=== PATIENT | female | born 1940 | race Caucasian/White ===

== ENCOUNTER 2017-01-21 11:21 | Emergency (ER) | payer MEDICARE, BC ==
[2017-01-21] MEDS ORDERED: Ondansetron 4 MG/2 ML SDV IVPUSH ONE (11:30)
[2017-01-21] MEDS ORDERED: Sodium Chloride 0.9% 2.5 ML Syringe FLUSH PRN (11:31)
[2017-01-21] MEDS ORDERED: diphenhydrAMINE 50 MG/ML SDV IVPUSH ONE (11:31)
[2017-01-21] MEDS ORDERED: LORazepam 2 MG/ML MDV IVPUSH ONE (11:31)
[2017-01-21] MEDS ORDERED: Sodium Chloride 0.9% 10 ML Syringe FLUSH PRN (11:31)
--- NOTE | 2017-01-21 11:32 | EDM.PDOC ---
ED HPI GENERAL MEDICAL PROBLEM - General Chief Complaint: Allergic Reaction Stated Complaint: CHEST PAIN Time Seen by Provider: 01/21/17 11:24 - History of Present Illness INITIAL COMMENTS - FREE TEXT/NARRATIVE: HISTORY AND PHYSICAL: History of present illness: The patient is a 76-year-old female who presents with complaints of feeling shaky and weak and somewhat short of breath after taking Xanax and a new medication, gabapentin, at 1 AM[address] She says that Dr. Christian Almazan prescribed this to her and she has never taking gabapentin before. She says that she has had reactions to medications in the past and usually she gets a rash and she is not itchy nor has she seen a rash. She has no facial swelling or lip swelling and no difficulty swallowing. She is having no chest pain just feeling shaky and somewhat short of breath. Review of systems: As per history of present illness and below otherwise all systems reviewed and negative. Past medical history: As per history of present illness and as reviewed below otherwise noncontributory. Surgical history: As per history of present illness and as reviewed below otherwise noncontributory. Social history: No reported history of drug or alcohol abuse. Family history: As per history of present illness and as reviewed below otherwise noncontributory. Physical exam: Gen.: Well-developed well-nourished female who is very anxious in the room is nontoxic and speaking clearly and easily in the ED. HEENT: Atraumatic, normocephalic, pupils reactive, negative for conjunctival pallor or scleral icterus, mucous membranes moist, throat clear, neck supple, nontender, trachea midline. There Is no facial swelling or oropharyngeal swelling tongue is normal and no facial rashes Lungs: Clear to auscultation, breath sounds equal bilaterally, chest nontender. No work or breathing no sensory muscle use no wheezing no stridor Heart: S1S2, regular rate and rhythm no overt murmurs Abdomen: Soft, nondistended, nontender. NABS Skin: Normal turgor no evidence of any rashes or lesions no urticaria no erythema or abnormalities are seen Genitourinary: Deferred. Rectal: Deferred. Extremities: Atraumatic, negative for cords or calf pain. Neurovascular unremarkable. Neuro: Awake, alert, oriented. Cranial nerves II through XII unremarkable. Cerebellum unremarkable. Motor and sensory unremarkable throughout. Exam nonfocal. Diagnostics: EKG Therapeutics: IV, Benadryl Ativan Patient does feel better but still feels a little shaky. I put a call out to discuss the case with Dr. Cruz as the patient says his nurse contacted her and told her to not take the gabapentin 300 mg but to take 100 mg. She still feels uncomfortable with this so I will discharge the patient home and continued to talk to Dr. Cruz about this. I told her that I will ask Dr. Cruz's nurse to contact her with the plan for home. Impression: Drug reaction/anxiety reaction Definitive disposition and diagnosis as appropriate pending reevaluation and review of above. - Related Data Allergies Allergy/AdvReac Type Severity Reaction Status Date / Time diclofenac sodium Allergy Intermediate Nausea and Verified 10/05/14 11:01 [From Voltaren] Vomiting adhesive Allergy Rash Verified 10/05/14 11:01 aspirin Allergy Hives Verified 10/05/14 11:01 calcium Allergy Nausea and Verified 10/05/14 11:01 Vomiting codeine Allergy Headache Verified 10/05/14 11:01 erythromycin base Allergy Hives Verified 10/05/14 11:01 [Erythromycin Base] latex Allergy Hives Verified 10/05/14 11:01 meloxicam Allergy Nausea and Verified 10/05/14 11:01 Vomiting naproxen [From Naprosyn] Allergy Nausea and Verified 10/05/14 11:01 Vomiting propoxyphene HCl Allergy Nausea and Verified 10/05/14 11:01 [From Darvon] Vomiting shellfish derived Allergy Nausea and Verified 10/05/14 11:01 Vomiting tamsulosin Allergy Cannot Verified 10/05/14 11:01 Remember tramadol HCl [From Ultram] Allergy Nausea and Verified 10/05/14 11:01 Vomiting Home Meds: Home Meds Esomeprazole [NexIUM] 40 mg PO DAILY 08/31/13 [History] Levothyroxine Sodium [Synthroid] 0.25 mcg PO DAILY 08/31/13 [History] Cholecalciferol (Vitamin D3) [Vitamin D3] 2,000 units PO DAILY 12/17/13 [History ] Multivitamin [Multi Vitamin Daily] 1 tab PO DAILY 12/17/13 [History] Otc Arthritis Medication 1 tab PO ASDIRECTED PRN 07/07/14 [History] predniSONE [Prednisone] 20 mg PO DAILY PRN 10/05/14 [History] Social & Family History - Tobacco Use Smoking Status *Q: Never Smoker Used Tobacco, but Quit: Yes Second Hand Smoke Exposure: No - Alcohol Use Days Per Week of Alcohol Use: 0 Number of Drinks Per Day: 0 Total Drinks Per Week: 0 - Recreational Drug Use Recreational Drug Use: No Drug Use in Last 12 Months: No ED ROS ALLERGIC REACTION - Review of Systems Review Of Systems: ROS reveals no pertinent complaints other than HPI. ED EXAM GENERAL NO PERIP PULSE - Physical Exam Exam: See Below (See dictation) Course - Vital Signs Last Recorded V/S: Last Vital Signs Temp 35.9 C 01/21/17 11:27 Pulse 73 01/21/17 11:27 Resp 20 01/21/17 11:27 BP 148/69 H 01/21/17 11:27 Pulse Ox 99 01/21/17 11:27 - Orders/Labs/Meds Orders: Active Orders 24 hr Category Date Time Status EKG Documentation Completion [RC] STAT Care 01/21/17 11:31 Active Sodium Chloride 0.9% [Saline Flush] Med 01/21/17 11:31 Active 10 ml FLUSH ASDIRECTED PRN Sodium Chloride 0.9% [Saline Flush] Med 01/21/17 11:31 Active 2.5 ml FLUSH ASDIRECTED PRN Saline Lock Insert [OM.PC] Stat Oth 01/21/17 11:30 Ordered Medication Orders Sodium Chloride (Saline Flush) 10 ml FLUSH ASDIRECTED PRN PRN Reason: Keep Vein Open Sodium Chloride (Saline Flush) 2.5 ml FLUSH ASDIRECTED PRN PRN Reason: Keep Vein Open Meds: Medications Generic Name Dose Route Start Last Admin Trade Name Freq PRN Reason Stop Dose Admin Sodium Chloride 10 ml 01/21/17 11:31 Saline Flush FLUSH ASDIRECTED PRN Keep Vein Open Sodium Chloride 2.5 ml 01/21/17 11:31 Saline Flush FLUSH ASDIRECTED PRN Keep Vein Open Discontinued Medications Generic Name Dose Route Start Last Admin Trade Name Freq PRN Reason Stop Dose Admin Diphenhydramine HCl 25 mg 01/21/17 11:31 Benadryl IVPUSH 01/21/17 11:32 ONETIME ONE Lorazepam 1 mg 01/21/17 11:31 Ativan IVPUSH 01/21/17 11:32 ONETIME ONE Ondansetron HCl 4 mg 01/21/17 11:30 Zodeanna IVPUSH 01/21/17 11:31 ONETIME ONE Departure - Departure Time of Disposition: 12:31 Disposition: Home, Self-Care 01 Condition: Good Clinical Impression: Drug reaction Qualifiers: Encounter type: initial encounter Qualified Code(s): T88.7XXA - Unspecified adverse effect of drug or medicament, initial encounter - Discharge Information Referrals: PCP,None [Primary Care Provider] - Additional Instructions: The following information is given to patients seen in the emergency department who are being discharged to home. This information is to outline your options for follow-up care. We provide all patients seen in our emergency department with a follow-up referral. The need for follow-up, as well as the timing and circumstances, are variable depending upon the specifics of your emergency department visit. If you don't have a primary care physician on staff, we will provide you with a referral. We always advise you to contact your personal physician following an emergency department visit to inform them of the circumstance of the visit and for follow-up with them and/or the need for any referrals to a consulting specialist. The emergency department will also refer you to a specialist when appropriate. This referral assures that you have the opportunity for followup care with a specialist. All of these measure are taken in an effort to provide you with optimal care, which includes your followup. Under all circumstances we always encourage you to contact your private physician who remains a resource for coordinating your care. When calling for followup care, please make the office aware that this follow-up is from your recent emergency room visit. If for any reason you are refused follow-up, please contact the [facility] emergency department at and ask to speak to the emergency department charge nurse. [address] [place] [address] Cruz for follow-up and further medication direction. Rest and return to ER as needed and as discussed - My Orders Last 24 Hours: My Active Orders 01/21/17 11:30 Saline Lock Insert [OM.PC] Stat 01/21/17 11:31 EKG Documentation Completion [RC] STAT Sodium Chloride 0.9% [Saline Flush] 10 ml FLUSH ASDIRECTED PRN Sodium Chloride 0.9% [Saline Flush] 2.5 ml FLUSH ASDIRECTED PRN - Assessment/Plan Last 24 Hours: My Active Orders 01/21/17 11:30 Saline Lock Insert [OM.PC] Stat 01/21/17 11:31 EKG Documentation Completion [RC] STAT Sodium Chloride 0.9% [Saline Flush] 10 ml FLUSH ASDIRECTED PRN Sodium Chloride 0.9% [Saline Flush] 2.5 ml FLUSH ASDIRECTED PRN
[2017-01-21] MEDS ORDERED: Ondansetron 4 MG Tab.DIS PO ONE (12:40)
[2017-01-21] MEDS ORDERED: diphenhydrAMINE 50 MG Cap PO ONE (12:41)
[2017-01-21] MEDS ORDERED: Ondansetron 4 MG Tab.DIS ONE (12:48)
[2017-01-21 12:52] VITALS: BP 136/63
== END 2017-01-21 12:55 | disposition home or self-care (01) ==
LOC: MW.ED 11:21
DX: R53.1 Weakness (principal); R06.02 Shortness of breath; R13.10 Dysphagia, unspecified; T42.4X5A Adverse effect of benzodiazepines, initial encounter; T42.6X5A Adverse effect of other antiepileptic and sedative-hypnotic drugs, initial encounter; Z87.891 Personal history of nicotine dependence; Z79.899 Other long term (current) drug therapy; Z88.5 Allergy status to narcotic agent; Z88.0 Allergy status to penicillin; Z88.1 Allergy status to other antibiotic agents; Z88.8 Allergy status to other drugs, medicaments and biological substances; Z91.040 Latex allergy status; Z88.6 Allergy status to analgesic agent; Z91.013 Allergy to seafood
CPT/HCPCS: 93005; 99285; A9270; 99283

== ENCOUNTER 2018-02-08 02:22 | Emergency (ER) | payer MEDICARE, BC ==
[2018-02-08] MEDS ORDERED: Oxymetazoline 0.05% Nasal Spray 15 ML Bottle NAS ONE ×2 (02:30)
--- NOTE | 2018-02-08 03:11 | EDM.PDOC ---
ED HPI GENERAL MEDICAL PROBLEM - General Chief Complaint: ENT Problem Stated Complaint: NOSE BLEEDING Time Seen by Provider: 02/08/18 02:30 Source of Information: Reports: Patient History Limitations: Reports: No Limitations - History of Present Illness INITIAL COMMENTS - FREE TEXT/NARRATIVE: HISTORY AND PHYSICAL: History of present illness: 77-year-old female presenting emergency department with chief complaint of acute nosebleed starting tonight. Patient states that around 7:30 PM this evening she began to have a nosebleed. States that there was a significant amount of blood coming out of both nostrils. This lasted for several minutes. Eventually the bleeding stopped. She denies any associated lightheadedness. Then later on in the evening the bleeding started again. States that she has been unable to completely get it to stop bleeding. She has been seeing ear nose and throat for a chronic sore throat and has been using Flonase. Denies any history of nosebleeds. Denies any history of hypertension. Initial arrival patient's blood pressure was 180s systolic. Nose clamp was placed. After 10-15 minutes bleeding had stopped. On visually inspection there is a small area in the right near that appears to be source of bleeding. Using silver nitrate I was able to cauterize this area. Patient was observed with no significant bleeding. Review of systems: As per history of present illness and below otherwise all systems reviewed and negative. Past medical history: As per history of present illness and as reviewed below otherwise noncontributory. Surgical history: As per history of present illness and as reviewed below otherwise noncontributory. Social history: No reported history of drug or alcohol abuse. Family history: As per history of present illness and as reviewed below otherwise noncontributory. Physical exam: HEENT: Atraumatic, normocephalic, pupils reactive, negative for conjunctival pallor or scleral icterus, mucous membranes moist, throat clear, neck supple, nontender, trachea midline. Lungs: Clear to auscultation, breath sounds equal bilaterally, chest nontender. Heart: S1S2, regular, negative for clicks, rubs, or JVD. Abdomen: Soft, nondistended, nontender. Negative for masses or hepatosplenomegaly. Negative for costovertebral tenderness. Pelvis: Stable nontender. Genitourinary: Deferred. Rectal: Deferred. Extremities: Atraumatic, negative for cords or calf pain. Neurovascular unremarkable. Neuro: Awake, alert, oriented. Cranial nerves II through XII unremarkable. Cerebellum unremarkable. Motor and sensory unremarkable throughout. Exam nonfocal. Diagnostics: Rapid strep Therapeutics: Afrin Silver nitrate for cautery Impression: Epistasis Plan: Did discharge patient with Afrin as well as nose clamp. Instructed her to refrain from using Flonase for at least 2-3 days to prevent rebleeding. We did also do a rapid strep which was negative. Patient was discharged in good condition with instructions to follow-up with primary care provider Dr. Cruz by calling his office on Friday. She should return to emergency department if any new or worsening symptoms. Definitive disposition and diagnosis as appropriate pending reevaluation and review of above. - Related Data Allergies Allergy/AdvReac Type Severity Reaction Status Date / Time diclofenac sodium Allergy Intermediate Nausea and Verified 02/08/18 02:33 [From Voltaren] Vomiting adhesive Allergy Rash Verified 02/08/18 02:33 aspirin Allergy Hives Verified 02/08/18 02:33 calcium Allergy Nausea and Verified 02/08/18 02:33 Vomiting codeine Allergy Headache Verified 02/08/18 02:33 erythromycin base Allergy Hives Verified 02/08/18 02:33 [Erythromycin Base] latex Allergy Hives Verified 02/08/18 02:33 meloxicam Allergy Nausea and Verified 02/08/18 02:33 Vomiting naproxen [From Naprosyn] Allergy Nausea and Verified 02/08/18 02:33 Vomiting propoxyphene HCl Allergy Nausea and Verified 02/08/18 02:33 [From Darvon] Vomiting shellfish derived Allergy Nausea and Verified 02/08/18 02:33 Vomiting tamsulosin Allergy Cannot Verified 02/08/18 02:33 Remember tramadol HCl [From Ultram] Allergy Nausea and Verified 02/08/18 02:33 Vomiting Home Meds: Home Meds Esomeprazole [NexIUM] 40 mcg PO DAILY 08/31/13 [History] Levothyroxine Sodium [Synthroid] 50 mcg PO DAILY 08/31/13 [History] Cholecalciferol (Vitamin D3) [Vitamin D3] 2,000 units PO DAILY 12/17/13 [History ] Multivitamin [Multi Vitamin Daily] 1 tab PO DAILY 12/17/13 [History] predniSONE [Prednisone] 5 mg PO DAILY PRN 10/05/14 [History] Acyclovir 400 mg PO TID 02/08/18 [History] Codeine/Promethazine HCl [Promethazine-Codeine Syrup] 02/08/18 [History] Zolpidem [Ambien] 10 mg PO BEDTIME PRN 02/08/18 [History] Past Medical History HEENT History: Reports: Allergic Rhinitis Cardiovascular History: Reports: None Respiratory History: Reports: None 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 Gastrointestinal History: Reports: None Genitourinary History: Reports: Renal Calculus Musculoskeletal History: Reports: Neck Pain, Chronic Neurological History: Reports: Other (See Below) Other Neuro History: fibromyalgia Psychiatric History: Reports: Anxiety Hematologic History: Reports: None Dermatologic History: Reports: None - Infectious Disease History Infectious Disease History: Reports: None - Past Surgical History Head Surgeries/Procedures: Reports: None HEENT Surgical History: Reports: Tonsillectomy Musculoskeletal Surgical History: Reports: Other (See Below) Other Musculoskeletal Surgeries/Procedures:: neck surgery, sarcoidosis Social & Family History - Tobacco Use Smoking Status *Q: Never Smoker - Alcohol Use Days Per Week of Alcohol Use: 1 Number of Drinks Per Day: 1 Total Drinks Per Week: 1 - Recreational Drug Use Recreational Drug Use: No ED ROS GENERAL - Review of Systems Review Of Systems: ROS reveals no pertinent complaints other than HPI. ED EXAM, GENERAL - Physical Exam Exam: See Below Course - Vital Signs Last Recorded V/S: Last Vital Signs Temp 96.3 F 02/08/18 02:25 Pulse 87 02/08/18 02:40 Resp 18 02/08/18 02:40 BP 141/88 H 02/08/18 02:40 Pulse Ox 97 02/08/18 02:25 - Orders/Labs/Meds Orders: Active Orders 24 hr Category Date Time Status STREP SCRN A RAPID W CULT CONF [RM] Stat Lab 02/08/18 03:15 Received Meds: Medications Discontinued Medications Generic Name Dose Route Start Last Admin Trade Name Freq PRN Reason Stop Dose Admin Oxymetazoline HCl 1 ml 02/08/18 02:30 02/08/18 03:00 Afrin Original 0.05% Nasal [place] MATTIE 02/08/18 02:31 1 ml ONETIME ONE Administration Departure - Departure Time of Disposition: 03:18 Disposition: Home, Self-Care 01 Condition: Good Clinical Impression: Epistaxis - Discharge Information Forms: ED Department Discharge Additional Instructions: My general discharge The following information is given to patients seen in the emergency department who are being discharged to home. This information is to outline your options for follow-up care. We provide all patients seen in our emergency department with a follow-up referral. The need for follow-up, as well as the timing and circumstances, are variable depending upon the specifics of your emergency department visit. If you don't have a primary care physician on staff, we will provide you with a referral. We always advise you to contact your personal physician following an emergency department visit to inform them of the circumstance of the visit and for follow-up with them and/or the need for any referrals to a consulting specialist. The emergency department will also refer you to a specialist when appropriate. This referral assures that you have the opportunity for follow-up care with a specialist. All of these measure are taken in an effort to provide you with optimal care, which includes your follow-up. Under all circumstances we always encourage you to contact your private physician who remains a resource for coordinating your care. When calling for follow-up care, please make the office aware that this follow-up is from your recent emergency room visit. If for any reason you are refused follow-up, please contact the [facility] Emergency Department at and asked to speak to the emergency department charge nurse. [address] [address] As we discussed follow-up with Dr. Cruz by calling his office on Friday. Refrain from using Flonase for at least 2-3 days. Try to avoid blowing nose or manipulation of the nose. May use nose clamp and Afrin for any new bleeding. Return to emergency department if any new or worsening symptoms as we discussed. - My Orders Last 24 Hours: My Active Orders 02/08/18 03:15 STREP SCRN A RAPID W CULT CONF [RM] Stat - Assessment/Plan Last 24 Hours: My Active Orders 02/08/18 03:15 STREP SCRN A RAPID W CULT CONF [RM] Stat
[2018-02-08 03:48] VITALS: BP 129/80
== END 2018-02-08 03:46 | disposition home or self-care (01) ==
LOC: MW.ED 02:22
DX: R04.0 Epistaxis (principal); F41.9 Anxiety disorder, unspecified; Z79.899 Other long term (current) drug therapy; Z88.6 Allergy status to analgesic agent; Z88.5 Allergy status to narcotic agent; Z88.8 Allergy status to other drugs, medicaments and biological substances; Z91.09 Other allergy status, other than to drugs and biological substances; Z88.1 Allergy status to other antibiotic agents
CPT/HCPCS: 87081; 87880-QW; 99283

== ENCOUNTER 2018-10-16 09:26 | Day surgery (SDC) | payer MEDICARE, BC ==
[~2018-10-16 09:26] MED LIST: Lactated Ringers 1,000 ML IV SCH; Lidocaine 2% 5 ML SDV ONE; Propofol 200 MG/20 ML SDV ONE
--- NOTE | 2018-10-16 10:46 | PCM.PREANE ---
Preanesthetic Assessment - Anesthesia/Transfusion/Family Hx Anesthesia History: Prior Anesthesia Reaction Other Type of Anesthesia Reaction Comment: "heart stopped" Family History of Anesthesia Reaction: No Transfusion History: No Prior Transfusion(s) Intubation History: Unknown - Review of Systems General: No Symptoms Pulmonary: No Symptoms Cardiovascular: No Symptoms Gastrointestinal: Other (major acid reflux) Neurological: No Symptoms Other: Reports: None - Physical Assessment NPO Status Date: 10/15/18 NPO Status Time: 23:45 O2 Sat by Pulse Oximetry: 95 Respiratory Rate: 16 Vital Signs: Last Vital Signs Temp 36.5 C 10/16/18 10:32 Pulse 80 10/16/18 10:32 Resp 16 10/16/18 10:32 BP 146/79 H 10/16/18 10:32 Pulse Ox 95 10/16/18 10:32 Height: 4 ft 11 in Weight: 53.07 kg ASA Class: 3 Mental Status: Alert & Oriented x3 Airway Class: Mallampati = 2 Dentition: Reports: Normal Dentition, [place](s) (upper and lower on sides) Thyro-Mental Finger Breadths: 3 Mouth Opening Finger Breadths: 3 ROM/Head Extension: Limited/Partial Lungs: Clear to Auscultation, Normal Respiratory Effort Cardiovascular: Regular Rate, Regular Rhythm - Allergies Allergies/Adverse Reactions: Allergies Allergy/AdvReac Type Severity Reaction Status Date / Time diclofenac sodium Allergy Intermediate Nausea and Verified 10/16/18 10:37 [From Voltaren] Vomiting adhesive Allergy Rash Verified 10/16/18 10:37 aspirin Allergy Hives Verified 10/16/18 10:37 baclofen Allergy Cannot Verified 10/16/18 10:37 Remember calcium Allergy Nausea and Verified 10/16/18 10:37 Vomiting codeine Allergy Headache Verified 10/16/18 10:37 colistimethate sodium Allergy Rash Verified 10/16/18 10:37 [From Coly-Mycin M] erythromycin base Allergy Hives Verified 10/16/18 10:37 [Erythromycin Base] fluticasone [From Flonase] Allergy Itching Verified 10/16/18 10:37 gabapentin Allergy Chest Pain Verified 10/16/18 10:37 latex Allergy Hives Verified 10/16/18 10:37 levofloxacin Allergy Cannot Verified 10/16/18 10:37 Remember meloxicam Allergy Nausea and Verified 10/16/18 10:37 Vomiting naproxen [From Naprosyn] Allergy Nausea and Verified 10/16/18 10:37 Vomiting NSAIDS (Non-Steroidal Allergy Rash Verified 10/16/18 10:37 Anti-Inflamma nystatin Allergy Itching Verified 10/16/18 10:37 propoxyphene [From Darvon] Allergy Rash Verified 10/16/18 10:37 propoxyphene HCl Allergy Nausea and Verified 10/16/18 10:37 [From Darvon] Vomiting salicylates Allergy Cannot Verified 10/16/18 10:37 Remember shellfish derived Allergy Rash Verified 10/16/18 10:37 sulindac Allergy Nausea and Verified 10/16/18 10:37 Vomiting tamsulosin Allergy Rash Verified 10/16/18 10:37 tramadol HCl [From Ultram] Allergy Nausea and Verified 10/16/18 10:37 Vomiting umeclidinium Allergy Nausea Verified 10/16/18 10:37 [From Anoro Ellipta] valacyclovir [From Valtrex] Allergy Rash Verified 10/16/18 10:37 vilanterol Allergy Nausea Verified 10/16/18 10:37 [From Anoro Ellipta] naproxen Allergy Rash Uncoded 10/16/18 10:37 propoxyphene Allergy Nausea and Uncoded 10/16/18 10:37 Vomiting - Blood Blood Available: No - Acknowledgements Anesthesia Type Planned: MAC Pt an Appropriate Candidate for the Planned Anesthesia: Yes Alternatives and Risks of Anesthesia Discussed w Pt/Guardian: Yes Pt/Guardian Understands and Agrees with Anesthesia Plan: Yes PreAnesthesia Questionnaire HEENT History: Reports: Cataract, Other (See Below) Other HEENT History: had cataract surgery on 10/13/18, wears glasses Cardiovascular History: Reports: High Cholesterol Respiratory History: Reports: Other (See Below) Other Respiratory History: has Sarcoid lungs Gastrointestinal History: Reports: GERD Genitourinary History: Reports: Renal Calculus Musculoskeletal History: Reports: Back Pain, Chronic, Fibromyalgia Neurological History: Reports: None Other Neuro History: fibromyalgia Psychiatric History: Reports: Anxiety Endocrine/Metabolic History: Reports: Hypothyroidism Hematologic History: Reports: Anesthesia Reaction Other Hematologic History: states her "nerves overpowered the sedation" given pre-op and caused her "heart to stop" during appendectomy. Surgery was cancelled and done the next day. States she was not asleep when a [employer] surgery was started. Immunologic History: Reports: Immunosuppression (on prednisone at present time) , Other (See Below) (sarcoidosis) Dermatologic History: Reports: Other (See Below) Other Dermatologic History: hx of cold sores - Infectious Disease History Infectious Disease History: Reports: None - Past Surgical History Head Surgeries/Procedures: Reports: None HEENT Surgical History: Reports: Cataract Surgery, Tonsillectomy Cardiovascular Surgical History: Reports: Varicose Other Cardiovascular Surgeries/Procedures: varicose vein ligation because of blood clot in vein GI Surgical History: Reports: Appendectomy, Cholecystectomy Female Surgical History: Reports: Breast Biopsy, Hysterectomy, Lithotripsy/ ESWL, Salpingo-Oophorectomy, Tubal Ligation, Other (See Below) (bladder repair) Neurological Surgical History: Reports: C-Spine, Spinal Fusion (C3-C7) Musculoskeletal Surgical History: Reports: Other (See Below) Other Musculoskeletal Surgeries/Procedures:: bunionectomy Oncologic Surgical History: Reports: Lumpectomy - SUBSTANCE USE Smoking Status *Q: Never Smoker Days Per Week of Alcohol Use: 1 Number of Drinks Per Day: 2 Total Drinks Per Week: 2 Recreational Drug Type: Reports: Other (see below) - HOME MEDS Home Medications: Home Meds Levothyroxine Sodium [Synthroid] 50 mcg PO ASDIRECTED 08/31/13 [History] Acyclovir 400 mg PO TID PRN 02/08/18 [History] Zolpidem [Ambien] 5 mg PO BEDTIME PRN 02/08/18 [History] Esomeprazole Magnesium [Nexium] 40 mg PO BID 10/14/18 [History] Levothyroxine Sodium [Euthyrox] 25 mcg PO ASDIRECTED 10/14/18 [History] Multivitamin/Iron/Folic Acid [Centrum Adults Tablet] 1 tab PO DAILY 10/14/18 [ History] predniSONE 10 mg PO BID 10/14/18 [History] - CURRENT (IN HOUSE) MEDS Current Meds: Current Medications Lactated Ringer's (Ringers, Lactated) 1,000 mls @ 125 mls/hr IV ASDIRECTED [facility] Last Admin: 10/16/18 10:31 Dose: 125 mls/hr Discontinued Medications Lidocaine (Xylocaine-Mpf 2%) Confirm Administered Dose 5 ml .ROUTE .[facility] ONE Stop: 10/16/18 08:35 Propofol (Diprivan 20 Ml) Confirm Administered Dose 400 mg .ROUTE .[facility] ONE Stop: 10/16/18 08:36
[2018-10-16] MEDS ORDERED: Lactated Ringers 1,000 ML IV SCH (11:45)
--- NOTE | 2018-10-16 11:49 | PCM.OPNOTE ---
- General Post-Op/Procedure Note Date of Surgery/Procedure: 10/16/18 Operative Procedure(s): Esophagogastroduodenoscopy with biopsy Pre Op Diagnosis: Chronic gastroesophageal reflux disease. Progressive nocturnal heartburn. Post-Op Diagnosis: Mild to moderate chronic gastritis. Hiatal hernia. Minimal esophagitis. Anesthesia Technique: MAC (ASA III) Primary Surgeon: [email or web address] Condition: Good Free Text/Narrative:: DICTATION [id number] CPT CODE 54540
--- NOTE | 2018-10-16 12:16 | PCM48HPAN ---
Post Anesthesia Note - EVALUATION WITHIN 48HRS OF ANESTHETIC Vital Signs in Normal Range: Yes Patient Participated in Evaluation: Yes Respiratory Function Stable: Yes Airway Patent: Yes Cardiovascular Function Stable: Yes Hydration Status Stable: Yes Pain Control Satisfactory: Yes Nausea and Vomiting Control Satisfactory: Yes Mental Status Recovered: Yes Resp Rate: 17 - COMMENTS/OBSERVATIONS Free Text/Narrative:: No anesthesia problems
--- NOTE | 2018-10-16 12:50 | OR ---
SURGEON: Henri Mercer M.D. DATE OF PROCEDURE: 10/16/2018 OPERATION PERFORMED: Esophagogastroduodenoscopy with biopsy. PRIMARY SURGEON: Henri Mercer M.D. ANESTHESIA: MAC. ASA CLASSIFICATION: III. PREOPERATIVE DIAGNOSIS: Chronic gastroesophageal reflux disease with progressive nocturnal heartburn. POSTOPERATIVE DIAGNOSES: 1. Mild chronic gastritis. 2. Hiatal hernia. 3. Minimal esophagitis. DESCRIPTION OF PROCEDURE: The patient was taken to the endoscopy room, positioned on the endoscopy table in the supine position. Time-out was called for appropriate identification of the patient and procedure. Monitored anesthesia care was provided. The bite block was placed between the patient's teeth. The gastroscope was inserted through the bite block and advanced without difficulty into the oropharynx and subsequently through the esophagus and stomach into the duodenum where examination was now carried out in a retrograde fashion. The duodenum shows no acute inflammatory changes or ulcerations. The distal stomach does show mild-to- moderate gastritis. No acute ulcerations were noted. Antral biopsies were obtained to look for the presence of Helicobacter pylori. The gastroscope was then retroflexed to visualize the proximal stomach. No tumors or polyps were seen proximally. The patient does have a moderate sized hiatal hernia. The GE junction was well defined and shows no acute inflammatory changes or ulcerations. The esophagus itself demonstrates good contractility. No mid or proximal lesions were identified. The vocal cords were visualized as the scope was withdrawn and noted to move symmetrically. The gastroscope was then removed with the patient having tolerated the procedure well. She was taken to recovery room in stable condition. WHITLEY / LEIF /[id number]
[2018-10-16 14:20] VITALS: BP 125/75
== END 2018-10-16 12:35 | disposition home or self-care (01) ==
LOC: MW.SDS 09:26
PROVIDERS: ATTEND Surgery
DX: K21.0 Gastro-esophageal reflux disease with esophagitis (principal); K29.50 Unspecified chronic gastritis without bleeding; K44.9 Diaphragmatic hernia without obstruction or gangrene; E78.00 Pure hypercholesterolemia, unspecified; Z79.899 Other long term (current) drug therapy; Z88.6 Allergy status to analgesic agent; Z88.1 Allergy status to other antibiotic agents; Z88.4 Allergy status to anesthetic agent; Z91.040 Latex allergy status; Z88.5 Allergy status to narcotic agent; Z91.013 Allergy to seafood; Z88.8 Allergy status to other drugs, medicaments and biological substances; Z98.890 Other specified postprocedural states; Z80.0 Family history of malignant neoplasm of digestive organs; Z87.442 Personal history of urinary calculi
CPT/HCPCS: 43239; J2001; J2704; J7120

== ENCOUNTER 2019-08-18 08:49 | Emergency (ER) | payer MEDICARE, BC, OTHER ==
[2019-08-18] MEDS ORDERED: Sodium Chloride 0.9% 500 ML IV ONE (08:53)
--- NOTE | 2019-08-18 10:09 | CR ---
Chest: Who 2 views of the chest were obtained. Comparison: Prior chest x-ray of 01/15/18. Heart is slightly enlarged. Tortuous thoracic aorta is seen. Calcified mediastinal and hilar lymph nodes are seen. Areas of scarring are noted within the left upper lung. Interstitial change is also noted which appears to be chronic on both sides of the chest. No acute parenchymal change is appreciated. Previous cervical spine surgery is noted. Impression: 1. Multiple findings as noted above believed to be stable from prior chest x-ray. 2. Nothing acute is appreciated. Diagnostic code #2 This report was dictated in MDT
[2019-08-18 10:20] LABS: BLOOD UREA NITROGEN,BUN 18 mg/dL (7.0-18.0); CARBON DIOXIDE,CO2 31.8 mmol/L (21.0-32.0); CHLORIDE,CL 105 mmol/L (98-107); GLUCOSE RANDOM 96 mg/dL (74-106); POTASSIUM,K 3.9 mmol/L (3.5-5.1); SODIUM,NA 143 mmol/L (136-145)
--- NOTE | 2019-08-18 11:27 | EDM.PDOC ---
ED HPI GENERAL MEDICAL PROBLEM - General Chief Complaint: Respiratory Problem Stated Complaint: SOB Time Seen by Provider: 08/18/19 08:55 - History of Present Illness INITIAL COMMENTS - FREE TEXT/NARRATIVE: HPI 79-year-old female with sarcoidosis presents for evaluation of shortness of breath of approximately half day duration along with concern for subjective fevers that has kept up all night. No diarrhea, no further symptoms. No chest pain. * PE risk factors: denies recent immobilization, leg trauma, estrogen use, surgery in the last four weeks, hemoptysis, or malignancy in the last 6 months. * Smoking: distant former smoker (quit at age 19). * Inhaler(s): none prescribed. * CHF: denies weight gain, orthopnea, or diuretic use. M/S/F/SocHx notable for: please see HPI; remainder reviewed with patient and in chart. ROS: Negative constitutional, eye, cardiovascular, pulmonary, GI, , MSK, skin , neurologic, psychiatric, endocrine unless noted in the HPI. Exam Gen: Pleasant, non-toxic appearing, resting comfortably. HEENT: NC, AT, PEERL, EOMI, trachea midline. Resp: Clear to auscultation bilaterally, normal work of breathing. Card: RRR with no M/R/G, no crackles in lung bases, no pedal edema, no JVD appreciated. GI: NT/ND Vascular: Both ankles, calves, and thighs of equal size, no calf tenderness to palpation bilaterally. MSK: No chest wall TTP. No visible deformities, strength and tone WNL. Skin: Normal color with no visible lesions. Neuro: alert and oriented 3, no facial asymmetry, vision and hearing WNL. Psych: markedly anxious, mood and affect otherwise appropriate.. Labs / Imaging (pertinent): WBC 8.33, HB 13.4, lymphocyte 0.9, d-dimer 0.61, sodium 143, potassium 3.9, troponin <0.050, LDH 214, CRP <0.20, ferritin 165. Influenza A & B negative. COVID-19 pending. CXR: nothing acute is appreciated. EKG: SR 76 bpm, no OK segment depressions, no ST segment elevations or depressions, no hyperacute T waves. MDM Previous chart, nursing note, and vitals reviewed. A: 79-year-old female with sarcoidosis presents for evaluation of shortness of breath of approximately half day duration along with concern for subjective fevers that has kept up all night. DDx: pneumonia, reactive airway disease / COPD / Asthma, bronchitis, pneumothorax, anxiety, PE, CHF, pleural effusion, pericardial effusion, ACS. Evaluation: * Pneumonia - as the CXR is without focal infiltrate and the patient is afebrile and without significant sputum production, doubt pneumonia. * COVID-19 - low clinical suspicion given the normal CRP, ferritin, LDH, and lymphocyte count as well as a clear chest x-ray, however this is tentative at the present time, COVID-19 test is pending. * Influenza - influenza A & B rapid testing negative, low clinical suspicion for a false negative. * Reactive airway disease / COPD / Asthma - patient with good air movement and an absence of wheezing. * Bronchitis - doubt given the lack of productive cough or systemic symptoms.( suspect bronchitis with - cough > 5 days, absence of fever, wheezing, productive cough, sore throat, rhinorrhea, malaise, headache). * Pneumothorax - no evidence by CXR. * Anxiety - patient clinically without evidence of appreciable anxiety on exam. * PE Wells' (Signs & Sx of DVT - 0, PE is #1 or equally likelihood - 0, HR > 100 - 0, immobilization of >=3 days or surgery in last 28 days - 0, prior DVT or PE - 0, hemoptysis - 0, malignancy w/ tx in last 6 mo or palliative - 0) 0; as such the patients negative d-dimer (age-adjusted) is appropriate for PE rule out/risk stratification. * CHF - no evidence by auscultation, CXR, and absence of pedal edema. * Pleural effusion - CXR without evidence of effusions. * Pericardial effusion - doubt pericardial effusion given an alternate diagnosis , the lack of cardiomegaly on CXR and normal heart sounds. * ACS - doubt ACS given a non-ischemic EKG and a negative troponin greater than six hours from maximal symptom onset. Disposition: discharge with PCP follow-up as needed. Impression: cough, shortness breath. - Related Data Allergies Allergy/AdvReac Type Severity Reaction Status Date / Time diclofenac sodium Allergy Intermediate Nausea and Verified 08/18/19 09:17 [From Voltaren] Vomiting adhesive Allergy Rash Verified 08/18/19 09:17 aspirin Allergy Hives Verified 08/18/19 09:17 baclofen Allergy Cannot Verified 08/18/19 09:17 Remember calcium Allergy Nausea and Verified 08/18/19 09:17 Vomiting calcium chloride Allergy Hives Verified 08/18/19 10:52 codeine Allergy Headache Verified 08/18/19 09:17 colistimethate sodium Allergy Rash Verified 08/18/19 09:17 [From Coly-Mycin M] diclofenac [From Voltaren] Allergy Nausea and Verified 08/18/19 10:52 Vomiting erythromycin base Allergy Hives Verified 08/18/19 09:17 [Erythromycin Base] fluticasone [From Flonase] Allergy Itching Verified 08/18/19 09:17 gabapentin Allergy Chest Pain Verified 08/18/19 09:17 latex Allergy Hives Verified 08/18/19 09:17 levofloxacin Allergy Cannot Verified 08/18/19 09:17 Remember meloxicam Allergy Nausea and Verified 08/18/19 09:17 Vomiting naproxen [From Naprosyn] Allergy Nausea and Verified 08/18/19 09:17 Vomiting NSAIDS (Non-Steroidal Allergy Rash Verified 08/18/19 09:17 Anti-Inflamma nystatin Allergy Itching Verified 08/18/19 09:17 propoxyphene [From Darvon] Allergy Rash Verified 08/18/19 09:17 propoxyphene HCl Allergy Nausea and Verified 08/18/19 09:17 [From Darvon] Vomiting salicylates Allergy Cannot Verified 08/18/19 09:17 Remember shellfish derived Allergy Rash Verified 08/18/19 09:17 sulindac Allergy Nausea and Verified 08/18/19 09:17 Vomiting tamsulosin Allergy Rash Verified 08/18/19 09:17 tramadol Allergy Nausea and Verified 08/18/19 10:52 Vomiting tramadol HCl [From Ultram] Allergy Nausea and Verified 08/18/19 09:17 Vomiting umeclidinium Allergy Nausea Verified 08/18/19 09:17 [From Anoro Ellipta] valacyclovir [From Valtrex] Allergy Rash Verified 08/18/19 09:17 vilanterol Allergy Nausea Verified 08/18/19 09:17 [From Anoro Ellipta] naproxen Allergy Rash Uncoded 08/18/19 09:17 propoxyphene Allergy Nausea and Uncoded 08/18/19 09:17 Vomiting Home Meds: Home Meds Levothyroxine Sodium [Synthroid] 50 mcg PO ASDIRECTED 08/31/13 [History] Acyclovir 400 mg PO TID PRN 02/08/18 [History] Esomeprazole Magnesium [Nexium] 40 mg PO BID 10/14/18 [History] Levothyroxine Sodium [Euthyrox] 25 mcg PO ASDIRECTED 10/14/18 [History] Multivitamin/Iron/Folic Acid [Centrum Adults Tablet] 1 tab PO DAILY 10/14/18 [ History] predniSONE 10 mg PO BID 10/14/18 [History] Past Medical History HEENT History: Reports: Cataract, Other (See Below) Other HEENT History: had cataract surgery on 10/13/18, wears glasses Cardiovascular History: Reports: High Cholesterol Respiratory History: Reports: Other (See Below) Other Respiratory History: has Sarcoid lungs Gastrointestinal History: Reports: GERD Genitourinary History: Reports: Renal Calculus Musculoskeletal History: Reports: Back Pain, Chronic, Fibromyalgia Neurological History: Reports: None Other Neuro History: fibromyalgia Psychiatric History: Reports: Anxiety Endocrine/Metabolic History: Reports: Hypothyroidism Hematologic History: Reports: Anesthesia Reaction Other Hematologic History: states her "nerves overpowered the sedation" given pre-op and caused her "heart to stop" during appendectomy. Surgery was cancelled and done the next day. States she was not asleep when a BENDER HAND surgery was started. Immunologic History: Reports: Immunosuppression, Other (See Below) Dermatologic History: Reports: Other (See Below) Other Dermatologic History: hx of cold sores - Infectious Disease History Infectious Disease History: Reports: Mumps - Past Surgical History Head Surgeries/Procedures: Reports: None HEENT Surgical History: Reports: Cataract Surgery, Tonsillectomy Cardiovascular Surgical History: Reports: Varicose Other Cardiovascular Surgeries/Procedures: varicose vein ligation because of blood clot in vein GI Surgical History: Reports: Appendectomy, Cholecystectomy Female Surgical History: Reports: Breast Biopsy, Hysterectomy, Lithotripsy/ ESWL, Salpingo-Oophorectomy, Tubal Ligation, Other (See Below) Neurological Surgical History: Reports: C-Spine, Spinal Fusion Musculoskeletal Surgical History: Reports: Other (See Below) Other Musculoskeletal Surgeries/Procedures:: bunionectomy Oncologic Surgical History: Reports: Lumpectomy Social & Family History - Tobacco Use Smoking Status *Q: Former Smoker Used Tobacco, but Quit: Yes Month/Year Tobacco Last Used: 1959 - Caffeine Use Caffeine Use: Reports: Coffee, Tea - Recreational Drug Use Recreational Drug Use: No ED ROS GENERAL - Review of Systems Review Of Systems: See Below ED EXAM, GENERAL - Physical Exam Exam: See Below Course - Vital Signs Last Recorded V/S: Last Vital Signs Temp 35.7 C L 08/18/19 09:18 Pulse 83 08/18/19 09:18 Resp 18 08/18/19 09:18 BP 126/69 08/18/19 09:18 Pulse Ox 98 08/18/19 09:18 - Orders/Labs/Meds Orders: Active Orders 24 hr Category Date Time Status EKG Documentation Completion [RC] STAT Care 08/18/19 09:25 Active CORONAVIRUS COVID-19 PCR PHL [MREF] Stat Lab 08/18/19 10:40 Received Isolation [COMM] Routine Oth 08/18/19 09:12 Active Labs: Laboratory Tests 08/18/19 08/18/19 08/18/19 Range/Units 09:25 09:25 09:25 WBC 8.33 (4.0-11.0) K/uL RBC 4.40 (4.30-5.90) M/uL Hgb 13.4 (12.0-16.0) g/dL Hct 41.3 (36.0-46.0) % MCV 93.9 (80.0-98.0) fL MCH 30.5 (27.0-32.0) pg MCHC 32.4 (31.0-37.0) g/dL RDW Std Deviation 44.1 (28.0-62.0) fl RDW Coeff of Miranda 13 (11.0-15.0) % Plt Count 276 (150-400) K/uL MPV 8.60 (7.40-12.00) fL Neut % (Auto) 80.8 H (48.0-80.0) % Lymph % (Auto) 11.0 L (16.0-40.0) % [place] % (Auto) 5.8 (0.0-15.0) % Eos % (Auto) 2.0 (0.0-7.0) % Baso % (Auto) 0.4 (0.0-1.5) % Neut # (Auto) 6.7 H (1.4-5.7) K/uL Lymph # (Auto) 0.9 (0.6-2.4) K/uL [place] # (Auto) 0.5 (0.0-0.8) K/uL Eos # (Auto) 0.2 (0.0-0.7) K/uL Baso # (Auto) 0.0 (0.0-0.1) K/uL Nucleated RBC % 0.0 /100WBC Nucleated RBCs # 0 K/uL D-Dimer, Quantitative 0.61 H (0.0-0.50) mg/L FEU Sodium 143 (136-145) mmol/L Potassium 3.9 (3.5-5.1) mmol/L Chloride 105 (98-107) mmol/L Carbon Dioxide 31.8 (21.0-32.0) mmol/L BUN 18 (7.0-18.0) mg/dL Creatinine 0.6 (0.6-1.0) mg/dL Est Cr Clr Drug Dosing 52.82 mL/min Estimated GFR (MDRD) > 60.0 ml/min Glucose 96 (74-106) mg/dL Calcium 9.1 (8.5-10.1) mg/dL Ferritin (8-252) ng/mL Lactate Dehydrogenase 214 (81-234) U/L Troponin I < 0.050 (0.000-0.056) ng/mL C-Reactive Protein < 0.20 (0.00-0.90) mg/dL 08/18/19 Range/Units 09:25 WBC (4.0-11.0) K/uL RBC (4.30-5.90) M/uL Hgb (12.0-16.0) g/dL Hct (36.0-46.0) % MCV (80.0-98.0) fL MCH (27.0-32.0) pg MCHC (31.0-37.0) g/dL RDW Std Deviation (28.0-62.0) fl RDW Coeff of Miranda (11.0-15.0) % Plt Count (150-400) K/uL MPV (7.40-12.00) fL Neut % (Auto) (48.0-80.0) % Lymph % (Auto) (16.0-40.0) % [place] % (Auto) (0.0-15.0) % Eos % (Auto) (0.0-7.0) % Baso % (Auto) (0.0-1.5) % Neut # (Auto) (1.4-5.7) K/uL Lymph # (Auto) (0.6-2.4) K/uL [place] # (Auto) (0.0-0.8) K/uL Eos # (Auto) (0.0-0.7) K/uL Baso # (Auto) (0.0-0.1) K/uL Nucleated RBC % /100WBC Nucleated RBCs # K/uL D-Dimer, Quantitative (0.0-0.50) mg/L FEU Sodium (136-145) mmol/L Potassium (3.5-5.1) mmol/L Chloride (98-107) mmol/L Carbon Dioxide (21.0-32.0) mmol/L BUN (7.0-18.0) mg/dL Creatinine (0.6-1.0) mg/dL Est Cr Clr Drug Dosing mL/min Estimated GFR (MDRD) ml/min Glucose (74-106) mg/dL Calcium (8.5-10.1) mg/dL Ferritin 165 (8-252) ng/mL Lactate Dehydrogenase (81-234) U/L Troponin I (0.000-0.056) ng/mL C-Reactive Protein (0.00-0.90) mg/dL Meds: Medications Discontinued Medications Generic Name Dose Route Start Last Admin Trade Name Freq PRN Reason Stop Dose Admin Sodium Chloride 500 mls @ 1,000 mls/hr 08/18/19 08:53 08/18/19 09:16 Normal Saline IV 08/18/19 09:22 Not Given .Bolus ONE Departure - Departure Time of Disposition: 11:26 Disposition: Home, Self-Care 01 Clinical Impression: Cough, Shortness of breath - Discharge Information Referrals: Christian Cruz MD [Primary Care Provider] - Additional Instructions: You were in seen in the [facility] Emergency Department for evaluation of cough and shortness breath. At the time of your evaluation no clear cause of your symptoms were found, however you may have a viral upper respiratory tract infection. There is a small possibility this is COVID-19 and you have a pending viral swab to evaluate for COVID-19. Please read and follow all of the instructions below. Please follow up with your primary care physician within 48 hours for repeat evaluation. When calling for follow-up care, please make the office aware that this follow-up is from your recent emergency room visit. If for any reason you are refused follow-up, please contact the [facility] Emergency Department at and asked to speak to the emergency department charge nurse. Your care today was limited to identifying and treating emergent medical problems only. Many people have subtle differences in their test results that require follow up with their outpatient physician(s) to correctly determine if this represents a normal variation or concerning abnormality with respect to your specific health. The care given to you today was limited to identifying and treating emergent medical problems - you need to request a copy of all of your medical records from today's visit and follow up with your outpatient physician(s) to review both today's visit and your overall health. If you have any new symptoms or if you are at all concerned about your health please return immediately to the emergency department. Prescriptions: If you are uninsured or have financial difficulties with filling your prescription(s), you may consider using a free pharmacy discount service such as [employer] ([employer]) or [employer] ([employer]). These services allow you to search for a medication on your phone (or computer) and obtain a coupon that usually has a significant discount from the list nguyễn at a pharmacy. Your physician as well as [facility] does not have a financial relationship with either of these services. You may also wish to speak with your physician to determine if lower cost prescriptions are possible. Obtaining primary care: 1. [facility] provides pediatrics (children), family medicine (children, adults, and some obstetrical care), and internal medicine (adults). Further specialty care is also available. Same day appointments are available. They may be contacted at [phone] and are open Friday through Friday 8 AM to 5 PM. The [facility] are located at [place] [address]. 2. [facility] offers family medicine, internal medicine, women health, and further specialty care. [facility] may be contacted at [phone]. [facility] is located at [address] [place], [address]. 3. If you have health insurance, please also contact your insurer for a list of accepting providers under your policy, you may contact these providers for further health care. Occupational health: Work related injuries may consider following up with [facility], . Occupational health services are located at [address] [place] [address] and are open Friday through Friday from 7: 30 am to 5:00 pm. Obstetrical and Gynecological Care: [facility], , Friday through Friday 8 AM to [address] [place] [address]. Eyecare: If you have an eye injury you should follow up with your director college or with [facility], at [phone] or [phone] , they are located at [address] [place] [address]. Dental Care Ruslan Astudillo DDS. [address] [facility] [place], [place]. Ph. [phone] Ralf Astudillo DDS MS. [address] [facility] [address], [place], [place]. Ph. Kannan Emerson DDS. [address] [place]. Ph. [phone] Merritt Tamayo DDS. [address] [facility] [address] [place], [place]. Ph. [phone] Alok Aleman DDS PC. [address] [facility] [address] [place], [place]. Ph. [phone] Mary Johnson DDS. [address] [facility]. Ph. [phone] [facility]. [address] [place], [place]. Ph. [phone] [facility]. [address] [place] [address], [place], [place]. Ph. [phone] [facility] [address] [place] [phone]. Ph. [facility]. [address] [place] [address] [address] [place]. Ph. [facility]. [address] [place], [place]. Ph. [phone] Viral Syndrome You are believed to have a viral infection of the respiratory tract. These infections may cause chills, fever, cough, headache, body aches, and sore throat. Depending upon the virus, you may have mild to more severe symptoms. There is a possibility that your symptoms may be due to SARS-COV-2 (commonly called coronavirus), the virus that causes COVID-19. COVID-19 is generally a mild to moderate illness, however some people experience a severe or life- threatening infection. Based on your evaluation in the emergency department discharge home with self-monitoring was appropriate at the time of your care. Your discharge instructions below are listed for both COVID-19 as well as for more common viral infections (common cold viruses as well as influenza). COVID-19 COVID-19 is the disease caused by a new type of coronavirus turned SARS-COV-2. There is concern that your symptoms today may be due to SARS-COV-2. Based on your symptoms today confirmatory testing was not indicated, however you should treat your infection as a suspected COVID-19 infection.[Based on your symptoms today, there are pending laboratory studies to evaluate whether you have SARS- COV-19. The study should take several days. It is important to note that these tests are not perfect. That means some people with COVID-19 will falsely test negative, and others without COVID-19 may test positive. While these false results are believe to be a minority of the tests, it is essential that you be aware that you might have COVID-19 despite negative testing. Stay home except to get medical care: People who are mildly ill with COVID-19 are able to recover at home. Do not leave, except to get medical care. Do not visit public areas. Stay in touch with your doctor. Call before you get medical care. Be sure to get care if you feel worse or you think it is an emergency. Avoid public transportation: Avoid using public transportation, ride-sharing , or taxis. Separate yourself from other people in your home, this is known as home isolation Stay away from others as much as possible, you should stay in a specific sick room and away from other people in your home. Use a separate bathroom, if available. You should restrict contact with pets and other animals, just like you would around other people. Although there have not been reports of pets or other animals becoming sick with COVID-19, it is still recommended that people with the virus limit contact with animals until more information is known. When possible, have another member of your household care for your animals while you are sick with COVID-19. If you must care for your pet or be around animals while you are sick, wash your hands before and after you interact with them. See COVID-19 and Animals for more information. If you have a medical appointment, call your doctors office or emergency department, and tell them you have or may have COVID-19. This will help the office protect themselves and other patients. If you are sick you should wear a facemask when you are around other people and before you enter a healthcare providers office. If you are caring for others: If the person who is sick is not able to wear a facemask (for example, because it causes trouble breathing), then people who live in the home should stay in a different room. When caregivers enter the room of the sick person, they should wear a facemask. Visitors, other than caregivers, are not recommended. Cover your mouth and nose with a tissue when you cough or sneeze. Throw used tissues in a lined trash can. Immediately wash your hands with soap and water for at least 20 seconds. If soap and water are not available, clean your hands with an alcohol-based hand manufactured buildings repairer that contains at least 60% alcohol. Wash your hands often with soap and water for at least 20 seconds. This is especially important after blowing your nose, coughing, or sneezing; going to the bathroom; and before eating or preparing food. If soap and water are not available, use an alcohol-based hand manufactured buildings repairer with at least 60% alcohol, covering all surfaces of your hands and rubbing them together until they feel dry. Do not share dishes, drinking glasses, cups, eating utensils, towels, or bedding with other people in your home. After using these items, wash them thoroughly with soap and water or put in the mercury washer. Clean high-touch surfaces in your isolation area (sick room and bathroom) every day; let a caregiver clean and disinfect high-touch surfaces in other areas of the home. Routinely clean high-touch surfaces in your sick room and bathroom. Let someone else clean and disinfect surfaces in common areas, but not your bedroom and bathroom. If a caregiver or other person needs to clean and disinfect a sick persons bedroom or bathroom, they should do so on an as-needed basis. The caregiver/ other person should wear a mask and wait as long as possible after the sick person has used the bathroom. Clean and disinfect areas that may have blood, stool, or body fluids on them. Household refuse collector and disinfectants: Clean the area or item with soap and water or another detergent if it is dirty. Then, use a household disinfectant. Be sure to follow the instructions on the label to ensure safe and effective use of the product. Many products recommend keeping the surface wet for several minutes to ensure germs are killed. Many also recommend precautions such as wearing gloves and making sure you have good ventilation during use of the product. Monitor your symptoms Seek medical attention, but call first: seek medical care right away if your illness is worsening (for example, if you have difficulty breathing). Before going to the doctors office or emergency room, call ahead and tell them your symptoms. They will tell you what to do. If possible, put on a facemask before you enter the building. If you cant put on a facemask, try to keep a safe distance from other people (at least 6 feet away). This will help protect the people in the office or waiting room. Follow care instructions from your healthcare provider and local health department: Your local health authorities will give instructions on checking your symptoms and reporting information. If you develop emergency warning signs for COVID-19 get medical attention immediately. Emergency warning signs include*: o Difficulty breathing or shortness of breath o Persistent pain or pressure in the chest o New confusion or inability to arouse o Bluish lips or face o *This list is not all inclusive. Please consult your medical provider for any other symptoms that are severe or concerning. Call 911 if you have a medical emergency: If you have a medical emergency and need to call 911, notify the liquid chlorine operator that you have or think you might have , COVID-19. If possible, put on a facemask before medical help arrives. People with COVID-19 who have stayed home (home isolated) can stop home isolation under the following conditions. If you will not have a test to determine if you are still contagious, you can leave home after these three things have happened: You have had no fever for at least 72 hours (that is three full days of no fever without the use medicine that reduces fevers) AND other symptoms have improved (for example, when your cough or shortness of breath have improved) AND at least 7 days have passed since your symptoms first appeared If you will be tested to determine if you are still contagious, you can leave home after these three things have happened: You no longer have a fever (without the use medicine that reduces fevers) AND other symptoms have improved (for example, when your cough or shortness of breath have improved) AND you received two negative tests in a row, 24 hours apart. Your doctor will follow CDC guidelines. Want more information on COVID-19? Please visit the following websites. Center for Disease Control and Prevention. https://www.cdc.gov/coronavirus/2019 -ncov/index.html [employer]. https://www.acep.org/by.../infectious -diseases/coronavirus/ Viral infections (not COVID-19) In typical viral infections, the worst symptoms typically last a 2-5 days. Cough and fatigue may continue for as long as 7 to 10 days. Viral respiratory infections are highly contagious. Symptoms will not be reduced or improved by taking an antibiotic. Antibiotics are medications that kill bacteria, not viruses. Rarely these infections can lead to an infection of the sinuses, lungs , or middle ear. However antibiotics at this point in your illness antibiotics will not help prevent these uncommon complications. Home Care Instructions: * Care for viral infections will not shorten your illness but can help reduce your symptoms. * Please stay well hydrated and attempt to get plenty of sleep. * You may take both ibuprofen and acetaminophen as directed on the bottle for relief of fever, chills, and muscle aches. * If you have a severe cough you may take an lxgl-dbm-rfgnkau cough medication containing dextromethorphan. * Continue to cover your cough and wash your hands often. * Read the package instructions and warnings on any medication that you are taking. Return to the Emergency Department if you have: * Fast breathing, trouble breathing, or shortness of breath * Bluish or rajan skin color * Not drinking enough fluids * Severe or persistent vomiting * Not waking up or not interacting * Pain or pressure in the chest or abdomen * Sudden dizziness * Confusion * Or if you are otherwise concerned about your health Please follow-up your primary care provider or return to the emergency department if: * Your symptoms fail to improve over the next 4-5 days. * Your symptoms improve but then significantly worsen - this may be a sign of a bacterial infection which will need to be treated. You are otherwise concerned about your health. Shortness of Breath, Adult Shortness of breath is when a person has trouble breathing enough air, or when a person feels like she or he is having trouble breathing in enough air. Shortness of breath could be a sign of medical problem. Follow these instructions at home: Pay attention to any changes in your symptoms. Take these actions to help with your condition: Do not smoke. Smoking is a common cause of shortness of breath. If you smoke and you need help quitting, ask your health care provider. Avoid things that can irritate your airways, such as: o Mold. o Dust. o Air pollution. o Chemical fumes. Things that can cause allergy symptoms (allergens), if you have allergies. Keep your living space clean and free of mold and dust. Rest as needed. Slowly return to your usual activities. Take vdfs-hjy-vibndtt and prescription medicines, including oxygen and inhaled medicines, only as told by your health care provider. Keep all follow-up visits as told by your health care provider. This is important. Contact a health care provider if: Your condition does not improve as soon as expected. You have a hard time doing your normal activities, even after you rest. You have new symptoms. Get help right away if: Your shortness of breath gets worse. You have shortness of breath when you are resting. You feel light-headed or you faint. You have a cough that is not controlled with medicines. You cough up blood. You have pain with breathing. You have pain in your chest, arms, shoulders, or abdomen. You have a fever. You cannot walk upstairs or exercise the way that you normally do. Sepsis Event Note - Evaluation Sepsis Screening Result: No Definite Risk - Focused Exam Vital Signs: Vital Signs Temp Pulse Resp BP Pulse Ox 08/18/19 09:18 35.7 C L 83 18 126/69 98 Date Exam was Performed: 08/18/19 Time Exam was Performed: 11:26 - My Orders Last 24 Hours: My Active Orders 08/18/19 09:12 Isolation [COMM] Routine 08/18/19 09:25 EKG Documentation Completion [RC] STAT 08/18/19 10:40 CORONAVIRUS COVID-19 PCR PHL [MREF] Stat - Assessment/Plan Last 24 Hours: My Active Orders 08/18/19 09:12 Isolation [COMM] Routine 08/18/19 09:25 EKG Documentation Completion [RC] STAT 08/18/19 10:40 CORONAVIRUS COVID-19 PCR PHL [MREF] Stat
[2019-08-18 11:47] VITALS: BP 133/73; PULSE 73
== END 2019-08-18 11:38 | disposition home or self-care (01) ==
LOC: MW.ED 08:49
DX: R06.02 Shortness of breath (principal); R05 Cough; K21.9 Gastro-esophageal reflux disease without esophagitis; F41.9 Anxiety disorder, unspecified; E03.9 Hypothyroidism, unspecified; Z87.891 Personal history of nicotine dependence; Z88.8 Allergy status to other drugs, medicaments and biological substances; Z88.5 Allergy status to narcotic agent; Z88.1 Allergy status to other antibiotic agents; Z91.040 Latex allergy status; Z91.048 Other nonmedicinal substance allergy status; Z91.013 Allergy to seafood; Z79.899 Other long term (current) drug therapy
CPT/HCPCS: 36415; 71046; 80048; 82728; 83615; 84484; 85025; 85379; 86140; 87804; 93005; 99285; U0002; 99284

== ENCOUNTER 2020-02-20 06:00 | Emergency (ER) | payer MEDICARE, BC ==
[2020-02-20] MEDS ORDERED: Sodium Chloride 0.9% 2.5 ML Syringe FLUSH PRN (06:21)
[2020-02-20] MEDS ORDERED: Morphine 4 MG/ML Syringe IM ONE (06:21)
[2020-02-20] MEDS ORDERED: Sodium Chloride 0.9% 10 ML Syringe FLUSH PRN (06:21)
[2020-02-20] MEDS ORDERED: Ondansetron 4 MG/2 ML SDV ONE (06:22)
[2020-02-20] MEDS ORDERED: Morphine 4 MG/ML Syringe ONE (06:23)
[2020-02-20] MEDS ORDERED: Ondansetron 4 MG/2 ML SDV IVPUSH ONE ×2 (06:24→07:28)
--- NOTE | 2020-02-20 06:25 | EDM.PDOC ---
<Yang Moreira - Last Filed: 02/20/20 06:47> ED HPI GENERAL MEDICAL PROBLEM - General Chief Complaint: Abdominal Pain Stated Complaint: ABD PAIN Time Seen by Provider: 02/20/20 06:18 - History of Present Illness INITIAL COMMENTS - FREE TEXT/NARRATIVE: 79-year-old female with history of renal colic presenting with severe left upper quadrant abdominal pain radiating to her back associated with nausea but no vomiting. Last bowel movement was yesterday and was normal for her. No chest pain or shortness of breath symptoms come and go symptoms are severe without alleviating factors. Left Upper Abdomen Pain Score (Numeric/FACES): 10 - Related Data Allergies Allergy/AdvReac Type Severity Reaction Status Date / Time diclofenac sodium Allergy Intermediate Nausea and Verified 02/21/20 13:51 [From Voltaren] Vomiting adhesive Allergy Rash Verified 02/21/20 13:51 aspirin Allergy Hives Verified 02/21/20 13:51 baclofen Allergy Cannot Verified 02/21/20 13:51 Remember calcium Allergy Nausea and Verified 02/21/20 13:51 Vomiting calcium chloride Allergy Hives Verified 02/21/20 13:51 codeine Allergy Headache Verified 02/21/20 13:51 colistimethate sodium Allergy Rash Verified 02/21/20 13:51 [From Coly-Mycin M] diclofenac [From Voltaren] Allergy Nausea and Verified 02/21/20 13:51 Vomiting erythromycin base Allergy Hives Verified 02/21/20 13:51 [Erythromycin Base] fluticasone [From Flonase] Allergy Itching Verified 02/21/20 14:09 gabapentin Allergy Chest Pain Verified 02/21/20 14:09 latex Allergy Hives Verified 02/21/20 14:09 levofloxacin Allergy Cannot Verified 02/21/20 14:09 Remember meloxicam Allergy Nausea and Verified 02/21/20 14:09 Vomiting naproxen [From Naprosyn] Allergy Nausea and Verified 02/21/20 14:09 Vomiting NSAIDS (Non-Steroidal Allergy Rash Verified 02/21/20 14:09 Anti-Inflamma nystatin Allergy Itching Verified 02/21/20 14:09 propoxyphene [From Darvon] Allergy Rash Verified 02/21/20 14:09 propoxyphene HCl Allergy Nausea and Verified 02/21/20 14:09 [From Darvon] Vomiting salicylates Allergy Cannot Verified 02/21/20 14:09 Remember shellfish derived Allergy Rash Verified 02/21/20 14:09 sulindac Allergy Nausea and Verified 02/21/20 14:09 Vomiting tamsulosin Allergy Rash Verified 02/21/20 14:09 tramadol Allergy Nausea and Verified 02/21/20 14:09 Vomiting tramadol HCl [From Ultram] Allergy Nausea and Verified 02/21/20 14:09 Vomiting umeclidinium Allergy Nausea Verified 02/21/20 14:09 [From Anoro Ellipta] valacyclovir [From Valtrex] Allergy Rash Verified 02/21/20 14:09 vilanterol Allergy Nausea Verified 02/21/20 14:09 [From Anoro Ellipta] naproxen Allergy Rash Uncoded 02/21/20 14:09 propoxyphene Allergy Nausea and Uncoded 02/21/20 14:09 Vomiting Home Meds: Home Meds Levothyroxine Sodium [Synthroid] 50 mcg PO ASDIRECTED 08/31/13 [History] Acyclovir 400 mg PO TID PRN 02/08/18 [History] Esomeprazole Magnesium [Nexium] 40 mg PO BID 10/14/18 [History] Levothyroxine Sodium [Euthyrox] 25 mcg PO ASDIRECTED 10/14/18 [History] Multivitamin/Iron/Folic Acid [Centrum Adults Tablet] 1 tab PO DAILY 10/14/18 [History] predniSONE 10 mg PO BID 10/14/18 [History] Acetaminophen [Acetaminophen Extra Strength] 500 - 1,000 mg PO Q6H PRN #30 tablet 02/20/20 [Rx] Ondansetron [Zofran] 4 mg PO Q8H PRN #15 tab 02/20/20 [Rx] cephALEXin [Keflex] 500 mg PO BID 7 Days #14 capsule 02/20/20 [Rx] oxyCODONE 5 - 10 mg PO Q6H PRN #20 tab 02/20/20 [Rx] Past Medical History HEENT History: Reports: Cataract, Other (See Below) Other HEENT History: had cataract surgery on 10/13/18, wears glasses Cardiovascular History: Reports: High Cholesterol Respiratory History: Reports: Other (See Below) 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 Surgery was cancelled and done the next day. States she was not asleep when a [employer] surgery was started. Immunologic History: Reports: Immunosuppression, Other (See Below) Dermatologic History: Reports: Other (See Below) Other Dermatologic History: hx of cold sores - Infectious Disease History Infectious Disease History: Reports: Chicken Pox - Past Surgical History Head Surgeries/Procedures: Reports: None HEENT Surgical History: Reports: Cataract Surgery, Tonsillectomy Cardiovascular Surgical History: Reports: Varicose Other Cardiovascular Surgeries/Procedures: varicose vein ligation because of blood clot in vein GI Surgical History: Reports: Appendectomy, Cholecystectomy Female Surgical History: Reports: Breast Biopsy, Hysterectomy, Lithotripsy/ESWL, Salpingo-Oophorectomy, Tubal Ligation, Other (See Below) Neurological Surgical History: Reports: C-Spine, Spinal Fusion Musculoskeletal Surgical History: Reports: Other (See Below) Other Musculoskeletal Surgeries/Procedures:: bunionectomy Oncologic Surgical History: Reports: Lumpectomy Social & Family History - Family History Family Medical History: Noncontributory - Tobacco Use Smoking Status *Q: Never Smoker Second Hand Smoke Exposure: No - Caffeine Use Caffeine Use: Reports: Coffee - Recreational Drug Use Recreational Drug Use: No ED ROS GENERAL - Review of Systems Review Of Systems: See Below Free Text/Narrative/Comment: General: No fever. Neck: No neck stiffness. Respiratory: No shortness of breath. Cardiac: No chest pain. Gastrointestinal: Per HPI Urinary: No dysuria. Musculoskeletal: No myalgias/arthralgias. Neurologic: No headache. ED EXAM, GENERAL - Physical Exam Exam: See Below Free Text/Narrative:: General Appearance: Uncomfortable but nontoxic Skin: No rash HEENT: Normocephalic/atraumatic, sclera anicteric, mucous membranes moist Neck: Normal range of motion Chest and Lungs: Bilateral breath sounds, clear to auscultation Cardiovascular: Regular rate and rhythm, no murmur Abdomen: Soft, non-tender Back: Normal Musculoskeletal: No edema or tenderness Neurologic: Awake, alert, no obvious deficits, moving all extremities Psychiatric: Appropriate, cooperative Departure - Departure Disposition: Home, Self-Care 01 Clinical Impression: Kidney stone on left side, Acute cystitis with hematuria - Discharge Information Prescriptions: Acetaminophen [Acetaminophen Extra Strength] 500 - 1,000 mg PO Q6H PRN #30 table t PRN Reason: Pain (Mild 1-3) cephALEXin [Keflex] 500 mg PO BID 7 Days #14 capsule oxyCODONE 5 - 10 mg PO Q6H PRN #20 tab PRN Reason: Pain (Severe 7-10) Ondansetron [Zofran] 4 mg PO Q8H PRN #15 tab PRN Reason: Nausea/Vomiting Instructions: Kidney Stones, Urinary Tract Infection, Adult Referrals: [facility] - Urology [Provider Group] - 1 Week (For follow-up care of kidney stone.) Forms: ED Department Discharge Additional Instructions: You were seen in the emergency department for flank pain. Your CT scan demonstrated a left-sided kidney stone in your urine looks like he may have a UTI. We did recommend hospitalization for further pain control which you declined. We are going to prescribe some medications for pain and an antibiotic medication called cephalexin. Be sure to finish the entire bottle of antibiotics. You to follow-up with the urology clinic in the next few days for reevaluation of your kidney stone. Warning signs to come back to the ER include severe or worsening pain, repeated vomiting, fever of 100.4 higher, chills, lightheadedness, or any other new or concerning symptoms. Please return the emergency department immediately if your symptoms worsen or if you feel worse. Thank you for choosing the [facility] emergency department in [place] for your medical needs today. It was a pleasure caring for you. The following information is given to patients seen in the emergency department who are being discharged. This information is to outline your options for follow-up care. We provide all patients seen in our emergency department with a follow-up referral. The need for follow-up, as well as the timing and circumstances, are variable depending upon the specifics of your emergency department visit. If you don't have a primary care physician on staff, we will provide you with a referral. We always advise you to contact your personal physician following an emergency department visit to inform them of the circumstance of the visit and for follow-up with them and/or the need for any referrals to a consulting specialist. The emergency department will also refer you to a specialist when appropriate. This referral assures that you have the opportunity for follow-up care with a specialist. All of these measure are taken in an effort to provide you with optimal care, which includes your follow-up. Under all circumstances we always encourage you to contact your private physician who remains a resource for coordinating your care. When calling for follow-up care, please make the office aware that this follow-up is from your recent emergency room visit. If for any reason you are refused follow-up, please contact the [facility] Emergency Department at and asked to speak to the emergency department charge nurse. If you do not have a primary care physician that is caring for you, you can contact these clinics below to set up an appointment to establish care: [facility] - Primary Care [address] [place] [address] [facility] [address] [place] [id number] Sepsis Event Note (ED) - Evaluation Sepsis Screening Result: No Definite Risk - Assessment/Plan Assessment:: 79-year-old female with prior history of renal colic presenting with signs and symptoms most consistent with renal colic but multiple other etiologies considered as well no chest pain no shortness of breath, suggest ACS. Pancreatitis is a consideration but lack of abdominal tenderness and lack of significant emesis makes this less likely. Biliary pathology considered as well but left upper quadrant location make this less likely lower concern for gynecologic pathology diverticulitis or appendicitis. Severity of the pain less likely. CBC, CMP, lipase, CT abdomen pelvis, urinalysis, morphine Zofran for symptoms and will reassess. The pt's CBC and CMP are normal. We continue to await CT a/p and the urinalysis. These results and the patient's final disposition were signed out to Dr. Diaz at 0700. <Gerald Diaz - Last Filed: 02/22/20 07:08> Course - Vital Signs Text/Narrative:: I accepted this patient at [address] Moreira. In brief, this is an 79-year-old female with a past medical history of kidney stones and hypothyroidism presenting with left upper quadrant/left flank pain. Hemodynamic ally stable. CBC shows normal cell lines. Metabolic panel reassuring. Normal LFTs and lipase. Awaiting urinalysis and CT read. Given IV morphine and Zofran. 0723: Noncontrast CT abdomen/pelvis demonstrates a new 3 to 4 mm partially obstructing stone in the right proximal ureter just distal to the UPJ with mild hydronephrosis and mildly prominent left renal pelvic dilation, otherwise no acute findings. We are awaiting urinalysis. 0752: Patient continues to be in significant pain. Ordered fentanyl and Zofran. Urinalysis shows large occult blood, small leukocyte esterase, 1+ bacteria, n egative nitrites. Added on a urine culture. Will reevaluate in shortly, anticipate likely admission on observation status for pain control. 0820: Patient continues to be in pain. I did offer an observation stay for ongoing pain/symptom control - she declined and wants to go home. I did review the urinalysis results and we are going to start her on cephalexin twice daily for 7 days for possible UTI - also ordered a urine culture. I also prescribed oxycodone, acetaminophen, and Zofran. I discussed with our on-call urologist Dr. Gruber who agrees with follow-up in the clinic in the next few days. We discussed ED return precautions including uncontrolled pain or nausea, fever, chills, or any other new or concerning symptoms and the patient voiced understanding. Plan: Patient is stable to discharge home with outpatient urology clinic follow- up. Strict emergency department return precautions were provided, patient indicated understanding. All questions were answered prior to departure. Discharged in good condition. Last Recorded V/S: Last Vital Signs Temp 35.8 C L 02/20/20 09:08 Pulse 86 02/20/20 09:08 Resp 14 02/20/20 09:08 BP 113/55 L 02/20/20 09:08 Pulse Ox 100 02/20/20 09:08 - Orders/Labs/Meds Labs: Laboratory Tests 02/20/20 02/20/20 02/20/20 Range/Units 06:15 06:15 07:23 WBC 10.32 (4.0-11.0) K/uL RBC 4.46 (4.30-5.90) M/uL Hgb 13.8 (12.0-16.0) g/dL Hct 42.0 (36.0-46.0) % MCV 94.2 (80.0-98.0) fL MCH 30.9 (27.0-32.0) pg MCHC 32.9 (31.0-37.0) g/dL RDW Std Deviation 44.5 (28.0-62.0) fl RDW Coeff of Miranda 13 (11.0-15.0) % Plt Count 270 (150-400) K/uL MPV 8.70 (7.40-12.00) fL Neut % (Auto) 66.5 (48.0-80.0) % Lymph % (Auto) 20.2 (16.0-40.0) % [place] % (Auto) 10.6 (0.0-15.0) % Eos % (Auto) 2.3 (0.0-7.0) % Baso % (Auto) 0.4 (0.0-1.5) % Neut # (Auto) 6.9 H (1.4-5.7) K/uL Lymph # (Auto) 2.1 (0.6-2.4) K/uL [place] # (Auto) 1.1 H (0.0-0.8) K/uL Eos # (Auto) 0.2 (0.0-0.7) K/uL Baso # (Auto) 0.0 (0.0-0.1) K/uL Nucleated RBC % 0.0 /100WBC Nucleated RBCs # 0 K/uL Sodium 141 (136-145) mmol/L Potassium 3.6 (3.5-5.1) mmol/L Chloride 103 (98-107) mmol/L Carbon Dioxide 29.0 (21.0-32.0) mmol/L BUN 24 H (7.0-18.0) mg/dL Creatinine 0.8 (0.6-1.0) mg/dL Est Cr Clr Drug Dosing 45.62 mL/min Estimated GFR (MDRD) > 60.0 ml/min Glucose 106 (74-106) mg/dL Calcium 9.2 (8.5-10.1) mg/dL Total Bilirubin 0.5 (0.2-1.0) mg/dL AST 15 (15-37) IU/L ALT 25 (14-63) IU/L Alkaline Phosphatase 62 (46-116) U/L Total Protein 7.3 (6.4-8.2) g/dL Albumin 4.1 (3.4-5.0) g/dL Globulin 3.2 (2.6-4.0) g/dL Albumin/Globulin Ratio 1.3 (0.9-1.6) Lipase 256 (73-393) U/L Urine Color YELLOW Urine Appearance CLOUDY Urine pH 8.0 (5.0-8.0) Ur Specific [place] 1.020 (1.001-1.035) Urine Protein NEGATIVE (NEGATIVE) mg/dL Urine Glucose (UA) NEGATIVE (NEGATIVE) mg/dL Urine Ketones NEGATIVE (NEGATIVE) mg/dL Urine Occult Blood LARGE H (NEGATIVE) Urine Nitrite NEGATIVE (NEGATIVE) Urine Bilirubin NEGATIVE (NEGATIVE) Urine Urobilinogen 0.2 (<2.0) EU/dL Ur Leukocyte Esterase SMALL H (NEGATIVE) Urine RBC 40-50 (0-2/HPF) Urine WBC 2-4 (0-5/HPF) Ur Epithelial Cells OCCASIONAL (NONE-FEW) Urine Bacteria 1+ H (NEGATIVE) Meds: Medications Discontinued Medications Generic Name Dose Route Start Last Admin Trade Name Saundra PRN Reason Stop Dose Admin Fentanyl 50 mcg 02/20/20 07:28 02/20/20 07:39 Fentanyl IVPUSH 02/20/20 07:29 50 mcg ONETIME ONE Administration Ketorolac Tromethamine 15 mg 02/20/20 07:28 02/20/20 07:52 Toradol IVPUSH 02/20/20 07:29 Not Given ONETIME ONE Morphine Sulfate Confirm 02/20/20 06:23 02/20/20 06:27 Morphine Administered 02/20/20 06:24 Not Given Dose 4 mg .ROUTE .STK-MED ONE Morphine Sulfate 4 mg 02/20/20 06:29 02/20/20 06:31 Morphine IVPUSH 02/20/20 06:30 4 mg ONETIME ONE Administration Ondansetron HCl 4 mg 02/20/20 06:24 02/20/20 06:25 Zofran IVPUSH 02/20/20 06:25 4 mg ONETIME ONE Administration Ondansetron HCl Confirm 02/20/20 06:22 02/20/20 06:28 Zofran Administered 02/20/20 06:23 Not Given Dose 4 mg .ROUTE .STK-MED ONE Ondansetron HCl 4 mg 02/20/20 07:28 02/20/20 07:39 Zofran IVPUSH 02/20/20 07:29 4 mg ONETIME ONE Administration Oxycodone HCl 10 mg 02/20/20 08:30 02/20/20 08:58 Oxycodone PO 02/20/20 08:31 10 mg ONETIME ONE Administration Sodium Chloride 10 ml 02/20/20 06:21 02/20/20 06:31 Saline Flush FLUSH 10 ml ASDIRECTED PRN Administration Keep Vein Open Sodium Chloride 2.5 ml 02/20/20 06:21 02/20/20 06:31 Saline Flush FLUSH 2.5 ml ASDIRECTED PRN Administration Keep Vein Open Departure - Departure Time of Disposition: 08:36 Condition: Good - Discharge Information *PRESCRIPTION DRUG MONITORING PROGRAM REVIEWED*: Not Applicable *COPY OF PRESCRIPTION DRUG MONITORING REPORT IN PATIENT DAVID: Not Applicable
[2020-02-20] MEDS ORDERED: Morphine 4 MG/ML Syringe IVPUSH ONE (06:29)
[2020-02-20 06:36] LABS: BLOOD UREA NITROGEN,BUN 24 mg/dL (7.0-18.0); CHLORIDE,CL 103 mmol/L (98-107); GLUCOSE RANDOM 106 mg/dL (74-106); LIPASE 256 U/L (73-393); POTASSIUM,K 3.6 mmol/L (3.5-5.1); SODIUM,NA 141 mmol/L (136-145)
--- NOTE | 2020-02-20 07:15 | CT ---
INDICATION: Left upper quadrant and left flank pain. TECHNIQUE: CT of the abdomen and pelvis performed with oral or IV contrast. COMPARISON: CT 05/14/2018. FINDINGS: Moderate thoracolumbar scoliosis. Calcified lymph nodes in the lower posterior mediastinum consistent with prior granulomatous disease. Marked osteopenia. Mild linear atelectasis or scarring in the lung bases. Few small subpleural nodules in the lung bases fairly stable. Very small pericardial effusion. Small hepatic cysts better visualized on previous study. Gallbladder not seen with common bile duct [id number] dilated at stable. Mild intrahepatic bile duct dilatation slightly more prominent. New obstructing stone in the right proximal ureter just distal to the UPJ measures 3-4 mm on image 41 and results in mild hydronephrosis and moderately prominent left renal pelvic dilatation which are new. No other ureteral stones. Tiny and small bilateral renal calculi are likely better lies without IV contrast today but could be slightly more prominent in size and number. Cortical thinning and scarring in both kidneys. Moderate vascular calcifications. Hysterectomy. Colonic diverticulosis. Injection granulomas both buttocks. Remainder negative. IMPRESSION: 1. New 3-4 mm partially obstructing left ureteral stone resulting new moderate left-sided hydronephrosis and moderately prominent renal pelvic dilatation 2. Bilateral renal calculi slightly more prominent in size and number. 3. Cholecystectomy with stable biliary dilatation consistent with postcholecystectomy state. 4. Hysterectomy. Multiple other findings as above. Please note that all CT scans at this facility use dose modulation, iterative reconstruction, and/or weight-based dosing when appropriate to reduce radiation dose to as low as reasonably achievable. Dictated by Jeffrey Bolanos MD @ Feb 20 2020 7:06AM Signed by Dr. Jeffrey Bolanos @ Feb 20 2020 7:14AM
[2020-02-20] MEDS ORDERED: fentaNYL 50 MCG/ML SDV IVPUSH ONE (07:28)
[2020-02-20] MEDS: Ketorolac 30 MG/ML SDV IVPUSH ONE ×2 (07:39→07:52)
[2020-02-20] MEDS ORDERED: oxyCODONE 5 MG Tab PO ONE (08:30)
[2020-02-20 09:08] VITALS: BP 113/55; PULSE 86
== END 2020-02-20 08:57 | disposition home or self-care (01) ==
LOC: MW.ED 06:00
DX: N30.01 Acute cystitis with hematuria (principal); N13.2 Hydronephrosis with renal and ureteral calculous obstruction; K21.9 Gastro-esophageal reflux disease without esophagitis; Z88.1 Allergy status to other antibiotic agents; Z88.5 Allergy status to narcotic agent; Z88.8 Allergy status to other drugs, medicaments and biological substances; Z91.09 Other allergy status, other than to drugs and biological substances; Z91.040 Latex allergy status; Z88.6 Allergy status to analgesic agent; Z91.013 Allergy to seafood; Z90.49 Acquired absence of other specified parts of digestive tract; Z90.710 Acquired absence of both cervix and uterus; Z98.51 Tubal ligation status
CPT/HCPCS: 36415; 74176; 80053; 81001; 83690; 85025; 87086; 96374; 96375; 96376; 99284; A9270; J2270; J2405; J3010; 99285; J1885

== ENCOUNTER 2020-02-21 13:27 | Observation (INO) | payer MEDICARE, BC ==
[2020-02-21] MEDS ORDERED: fentaNYL 50 MCG/ML SDV IVPUSH ONE (13:37)
[2020-02-21] MEDS ORDERED: Sodium Chloride 0.9% 10 ML Syringe FLUSH PRN (13:37)
[2020-02-21] MEDS ORDERED: Lactated Ringers 1,000 ML IV ONE (13:37)
[2020-02-21] MEDS ORDERED: Sodium Chloride 0.9% 2.5 ML Syringe FLUSH PRN (13:37)
[2020-02-21] MEDS ORDERED: Ondansetron 4 MG/2 ML SDV IVPUSH ONE ×2 (13:37→15:58)
--- NOTE | 2020-02-21 13:40 | EDM.PDOC ---
ED [facility] GENERAL MEDICAL PROBLEM - General Chief Complaint: Genitourinary Problem Stated Complaint: KIDNEY STONE Time Seen by Provider: 02/21/20 13:33 Source of Information: Reports: Patient, Old Records History Limitations: Reports: No Limitations - History of Present Illness INITIAL COMMENTS - FREE TEXT/NARRATIVE: 79-year-old female with a past medical history of sarcoidosis and hypothyroidism presenting with left upper quadrant abdominal pain. I saw this patient yesterday morning in our emergency department, she was diagnosed with a left- sided 3 to 4 mm partially obstructing kidney stone. I did offer admission for pain control but the patient declined and wanted to go home. She was sent home with Keflex and pain medications. She states the pain has become significantly worse today. She also reports nausea with some nonbloody emesis. Denies any fever or chills, she states that she did not turkey picker her prescribed Keflex. No other complaints other than uncontrolled pain and nausea. ROS: A 10-point review of systems was negative, except as noted in the HPI (or in the ROS section of this note). Past medical history: Reviewed, no additional pertinent history. Surgical history: Reviewed in system, no additional pertinent history. Social history: Reviewed in system, no additional pertinent history. Family history: Reviewed in system, no additional pertinent history. PHYSICAL EXAM Vital signs reviewed. Nursing notes reviewed. Constitutional: Awake, alert, appears very uncomfortable. Head: Normocephalic, atraumatic. Eyes: EOMI, conjunctiva normal, no discharge, no scleral icterus. Ears, Nose, Throat: External ears and nose normal, moist oral mucosa. Cardiovascular: 2+ radial pulse, capillary refill less than 2 seconds. Pulmonary: normal work of breathing, no accessory muscle use. Abdomen/GI: Soft, nontender, nondistended, no guarding or rigidity, no masses. Musculoskeletal: No deformities. Integumentary: Appropriate color for ethnicity, warm, dry, no pallor or jaundice, no rash. Neurologic: Alert, answering questions appropriately, normal speech, no facial droop, moving all extremities well. Psychiatric: Appropriate mood and affect, normal thought process. abdom Pain Score (Numeric/FACES): 10 - Related Data Allergies Allergy/AdvReac Type Severity Reaction Status Date / Time diclofenac sodium Allergy Intermediate Nausea and Verified 02/21/20 13:51 [From Voltaren] Vomiting adhesive Allergy Rash Verified 02/21/20 13:51 aspirin Allergy Hives Verified 02/21/20 13:51 baclofen Allergy Cannot Verified 02/21/20 13:51 Remember calcium Allergy Nausea and Verified 02/21/20 13:51 Vomiting calcium chloride Allergy Hives Verified 02/21/20 13:51 codeine Allergy Headache Verified 02/21/20 13:51 colistimethate sodium Allergy Rash Verified 02/21/20 13:51 [From Coly-Mycin M] diclofenac [From Voltaren] Allergy Nausea and Verified 02/21/20 13:51 Vomiting erythromycin base Allergy Hives Verified 02/21/20 13:51 [Erythromycin Base] fluticasone [From Flonase] Allergy Itching Verified 02/21/20 14:09 gabapentin Allergy Chest Pain Verified 02/21/20 14:09 latex Allergy Hives Verified 02/21/20 14:09 levofloxacin Allergy Cannot Verified 02/21/20 14:09 Remember meloxicam Allergy Nausea and Verified 02/21/20 14:09 Vomiting naproxen [From Naprosyn] Allergy Nausea and Verified 02/21/20 14:09 Vomiting NSAIDS (Non-Steroidal Allergy Rash Verified 02/21/20 14:09 Anti-Inflamma nystatin Allergy Itching Verified 02/21/20 14:09 propoxyphene [From Darvon] Allergy Rash Verified 02/21/20 14:09 propoxyphene HCl Allergy Nausea and Verified 02/21/20 14:09 [From Darvon] Vomiting salicylates Allergy Cannot Verified 02/21/20 14:09 Remember shellfish derived Allergy Rash Verified 02/21/20 14:09 sulindac Allergy Nausea and Verified 02/21/20 14:09 Vomiting tamsulosin Allergy Rash Verified 02/21/20 14:09 tramadol Allergy Nausea and Verified 02/21/20 14:09 Vomiting tramadol HCl [From Ultram] Allergy Nausea and Verified 02/21/20 14:09 Vomiting umeclidinium Allergy Nausea Verified 02/21/20 14:09 [From Anoro Ellipta] valacyclovir [From Valtrex] Allergy Rash Verified 02/21/20 14:09 vilanterol Allergy Nausea Verified 02/21/20 14:09 [From Anoro Ellipta] naproxen Allergy Rash Uncoded 02/21/20 14:09 propoxyphene Allergy Nausea and Uncoded 02/21/20 14:09 Vomiting Home Meds: Home Meds Levothyroxine Sodium [Synthroid] 50 mcg PO ASDIRECTED 08/31/13 [History] Acyclovir 400 mg PO TID PRN 02/08/18 [History] Esomeprazole Magnesium [Nexium] 40 mg PO BID 10/14/18 [History] Levothyroxine Sodium [Euthyrox] 25 mcg PO ASDIRECTED 10/14/18 [History] Multivitamin/Iron/Folic Acid [Centrum Adults Tablet] 1 tab PO DAILY 10/14/18 [History] predniSONE 10 mg PO BID 10/14/18 [History] Acetaminophen [Acetaminophen Extra Strength] 500 - 1,000 mg PO Q6H PRN #30 tablet 02/20/20 [Rx] Ondansetron [Zofran] 4 mg PO Q8H PRN #15 tab 02/20/20 [Rx] cephALEXin [Keflex] 500 mg PO BID 7 Days #14 capsule 02/20/20 [Rx] oxyCODONE 5 - 10 mg PO Q6H PRN #20 tab 02/20/20 [Rx] Past Medical History HEENT History: Reports: Cataract, Other (See Below) Other HEENT History: had cataract surgery on 10/13/18, wears glasses Cardiovascular History: Reports: High Cholesterol Respiratory History: Reports: Other (See Below) Other Respiratory History: has Sarcoid lungs Gastrointestinal History: Reports: GERD Genitourinary History: Reports: Renal Calculus 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 Surgery was cancelled and done the next day. 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 Immunologic History: Reports: Immunosuppression, Other (See Below) Dermatologic History: Reports: Other (See Below) Other Dermatologic History: hx of cold sores - Infectious Disease History Infectious Disease History: Reports: Chicken Pox - Past Surgical History Head Surgeries/Procedures: Reports: None HEENT Surgical History: Reports: Cataract Surgery, Tonsillectomy Cardiovascular Surgical History: Reports: Varicose Other Cardiovascular Surgeries/Procedures: varicose vein ligation because of blood clot in vein GI Surgical History: Reports: Appendectomy, Cholecystectomy Female Surgical History: Reports: Breast Biopsy, Hysterectomy, Lithotripsy/ESWL, Salpingo-Oophorectomy, Tubal Ligation, Other (See Below) Neurological Surgical History: Reports: C-Spine, Spinal Fusion Musculoskeletal Surgical History: Reports: Other (See Below) Other Musculoskeletal Surgeries/Procedures:: bunionectomy Oncologic Surgical History: Reports: Lumpectomy Social & Family History - Family History Family Medical History: Noncontributory - Caffeine Use Caffeine Use: Reports: Coffee ED ROS GENERAL - Review of Systems Review Of Systems: See Below ED EXAM, RENAL/ - Physical Exam Exam: See Below Course - Vital Signs Text/Narrative:: 79-year-old female presenting with severe worsening of prior pain that was attributed to a kidney stone yesterday. Denies any fever, chills, or new infectious symptoms. 3:00 PM: Given IV fentanyl and Zofran. Pain somewhat improved but still persistent. CBC shows leukocytosis with neutrophilic predominance. Normal lactate. Chemistry panel shows a new creatinine elevation to 1.2, showing acute kidney injury. Labs otherwise reassuring. We are awaiting a urinalysis. Ordered IV morphine sulfate. Given 2nd dose of Zofran. UA does not appear markedly different from yesterday. COVID testing negative. Given persistent pain and nausea, will need observation stay for further symptomatic control. Ordered IV ceftriaxone. Spoke with hospitalist Dr. Hanna who agrees to admit. Last Recorded V/S: Last Vital Signs Temp 36.7 C 02/21/20 19:38 Pulse 84 02/21/20 19:38 Resp 16 02/21/20 19:38 BP 135/70 02/21/20 19:38 Pulse Ox 92 L 02/21/20 19:38 - Orders/Labs/Meds Orders: Active Orders 24 hr Category Date Time Status Pulse Oximetry [RC] ASDIRECTED Care 02/21/20 13:37 Active Sodium Chloride 0.9% [Saline Flush] Med 02/21/20 13:37 Active 10 ml FLUSH ASDIRECTED PRN Sodium Chloride 0.9% [Saline Flush] Med 02/21/20 13:37 Active 2.5 ml FLUSH ASDIRECTED PRN Saline Lock Insert [OM.PC] Stat Oth 02/21/20 13:37 Ordered Medication Orders Ceftriaxone Sodium 1 gm/ (Sodium Chloride) 50 mls @ 100 mls/hr IV Q24H ENIO Levothyroxine Sodium (Levothyroxine) 50 mcg PO ACBREAKFAST ENIO Morphine Sulfate (Morphine) 2 mg IVPUSH Q2H PRN PRN Reason: Pain (severe 7-10) Stop: 02/22/20 17:37 Ondansetron HCl (Zofran) 4 mg IVPUSH Q4H PRN PRN Reason: Nausea Oxycodone HCl (Oxycodone) 5 mg PO Q4H PRN PRN Reason: Pain (moderate 4-6) Prednisone (Prednisone) 5 mg PO DAILY ENIO Sodium Chloride (Saline Flush) 2.5 ml FLUSH ASDIRECTED PRN PRN Reason: Keep Vein Open Last Admin: 02/21/20 14:01 Dose: 2.5 ml Documented by: REGINO Sodium Chloride (Saline Flush) 10 ml FLUSH ASDIRECTED PRN PRN Reason: Keep Vein Open Last Admin: 02/21/20 14:01 Dose: 10 ml Documented by: REGINO Labs: Laboratory Tests 02/21/20 02/21/20 02/21/20 Range/Units 14:00 14:00 14:00 WBC 12.81 H (4.0-11.0) K/uL RBC 4.43 (4.30-5.90) M/uL Hgb 13.7 (12.0-16.0) g/dL Hct 41.5 (36.0-46.0) % MCV 93.7 (80.0-98.0) fL MCH 30.9 (27.0-32.0) pg MCHC 33.0 (31.0-37.0) g/dL RDW Std Deviation 43.8 (28.0-62.0) fl RDW Coeff of Miranda 13 (11.0-15.0) % Plt Count 269 (150-400) K/uL MPV 8.70 (7.40-12.00) fL Neut % (Auto) 87.4 H (48.0-80.0) % Lymph % (Auto) 5.2 L (16.0-40.0) % Loup % (Auto) 7.1 (0.0-15.0) % Eos % (Auto) 0.1 (0.0-7.0) % Baso % (Auto) 0.2 (0.0-1.5) % Neut # (Auto) 11.2 H (1.4-5.7) K/uL Lymph # (Auto) 0.7 (0.6-2.4) K/uL Loup # (Auto) 0.9 H (0.0-0.8) K/uL Eos # (Auto) 0.0 (0.0-0.7) K/uL Baso # (Auto) 0.0 (0.0-0.1) K/uL Nucleated RBC % 0.0 /100WBC Nucleated RBCs # 0 K/uL Lactate 1.4 (0.20-2.00) mmol/L Sodium 137 (136-145) mmol/L Potassium 4.0 (3.5-5.1) mmol/L Chloride 100 (98-107) mmol/L Carbon Dioxide 25.9 (21.0-32.0) mmol/L BUN 23 H (7.0-18.0) mg/dL Creatinine 1.2 H (0.6-1.0) mg/dL Est Cr Clr Drug Dosing 26.41 mL/min Estimated GFR (MDRD) 43.1 ml/min Glucose 96 (74-106) mg/dL Calcium 9.6 (8.5-10.1) mg/dL Urine Color Urine Appearance Urine pH (5.0-8.0) Ur Specific Pullman (1.001-1.035) Urine Protein (NEGATIVE) mg/dL Urine Glucose (UA) (NEGATIVE) mg/dL Urine Ketones (NEGATIVE) mg/dL Urine Occult Blood (NEGATIVE) Urine Nitrite (NEGATIVE) Urine Bilirubin (NEGATIVE) Urine Urobilinogen (<2.0) EU/dL Ur Leukocyte Esterase (NEGATIVE) Urine RBC (0-2/HPF) Urine WBC (0-5/HPF) Ur Epithelial Cells (NONE-FEW) Amorphous Sediment (NEGATIVE) Urine Bacteria (NEGATIVE) Urine Mucus (NONE-MOD) 02/21/20 Range/Units 15:25 WBC (4.0-11.0) K/uL RBC (4.30-5.90) M/uL Hgb (12.0-16.0) g/dL Hct (36.0-46.0) % MCV (80.0-98.0) fL MCH (27.0-32.0) pg MCHC (31.0-37.0) g/dL RDW Std Deviation (28.0-62.0) fl RDW Coeff of Miranda (11.0-15.0) % Plt Count (150-400) K/uL MPV (7.40-12.00) fL Neut % (Auto) (48.0-80.0) % Lymph % (Auto) (16.0-40.0) % Loup % (Auto) (0.0-15.0) % Eos % (Auto) (0.0-7.0) % Baso % (Auto) (0.0-1.5) % Neut # (Auto) (1.4-5.7) K/uL Lymph # (Auto) (0.6-2.4) K/uL Loup # (Auto) (0.0-0.8) K/uL Eos # (Auto) (0.0-0.7) K/uL Baso # (Auto) (0.0-0.1) K/uL Nucleated RBC % /100WBC Nucleated RBCs # K/uL Lactate (0.20-2.00) mmol/L Sodium (136-145) mmol/L Potassium (3.5-5.1) mmol/L Chloride (98-107) mmol/L Carbon Dioxide (21.0-32.0) mmol/L BUN (7.0-18.0) mg/dL Creatinine (0.6-1.0) mg/dL Est Cr Clr Drug Dosing mL/min Estimated GFR (MDRD) ml/min Glucose (74-106) mg/dL Calcium (8.5-10.1) mg/dL Urine Color YELLOW Urine Appearance CLEAR Urine pH 6.5 (5.0-8.0) Ur Specific Pullman 1.015 (1.001-1.035) Urine Protein NEGATIVE (NEGATIVE) mg/dL Urine Glucose (UA) NEGATIVE (NEGATIVE) mg/dL Urine Ketones 15 H (NEGATIVE) mg/dL Urine Occult Blood LARGE H (NEGATIVE) Urine Nitrite NEGATIVE (NEGATIVE) Urine Bilirubin NEGATIVE (NEGATIVE) Urine Urobilinogen 0.2 (<2.0) EU/dL Ur Leukocyte Esterase TRACE H (NEGATIVE) Urine RBC 8-12 (0-2/HPF) Urine WBC 2-3 (0-5/HPF) Ur Epithelial Cells OCCASIONAL (NONE-FEW) Amorphous Sediment FEW (NEGATIVE) Urine Bacteria FEW (NEGATIVE) Urine Mucus FEW (NONE-MOD) Meds: Medications Generic Name Dose Route Start Last Admin Trade Name Freq PRN Reason Stop Dose Admin Ceftriaxone Sodium 1 gm/ 50 mls @ 100 mls/hr 02/22/20 16:45 Sodium Chloride IV Q24H ENIO Levothyroxine Sodium 50 mcg 02/22/20 07:30 Levothyroxine PO ACBREAKFAST [facility] Morphine Sulfate 2 mg 02/21/20 17:37 Morphine IVPUSH 02/22/20 17:37 Q2H PRN Pain (severe 7-10) Ondansetron HCl 4 mg 02/21/20 17:37 Zofran IVPUSH Q4H PRN Nausea Oxycodone HCl 5 mg 02/21/20 17:37 Oxycodone PO Q4H PRN Pain (moderate 4-6) Prednisone 5 mg 02/22/20 09:00 Prednisone PO DAILY ENIO Sodium Chloride 2.5 ml 02/21/20 13:37 02/21/20 14:01 Saline Flush FLUSH 2.5 ml ASDIRECTED PRN Administration Keep Vein Open Sodium Chloride 10 ml 02/21/20 13:37 02/21/20 14:01 Saline Flush FLUSH 10 ml ASDIRECTED PRN Administration Keep Vein Open Discontinued Medications Generic Name Dose Route Start Last Admin Trade Name Freq PRN Reason Stop Dose Admin Fentanyl 50 mcg 02/21/20 13:37 02/21/20 14:10 Fentanyl IVPUSH 02/21/20 13:38 50 mcg ONETIME ONE Administration Lactated Ringer's 1,000 mls @ 999 mls/hr 02/21/20 13:37 02/21/20 14:10 Ringers, Lactated IV 02/21/20 14:37 999 mls/hr .BOLUS ONE Administration Ceftriaxone Sodium/Dextrose 1 50 mls @ 100 mls/hr 02/21/20 16:06 02/21/20 17:12 gm/ Premix IV 02/21/20 16:35 100 mls/hr ONETIME ONE Administration Morphine Sulfate 4 mg 02/21/20 14:39 02/21/20 14:57 Morphine IVPUSH 02/21/20 14:40 4 mg ONETIME ONE Administration Ondansetron HCl 4 mg 02/21/20 13:37 02/21/20 14:10 Zofran IVPUSH 02/21/20 13:38 4 mg ONETIME ONE Administration Ondansetron HCl 4 mg 02/21/20 15:58 02/21/20 17:11 Zofran IVPUSH 02/21/20 15:59 4 mg ONETIME ONE Administration Departure - Departure Time of Disposition: 15:58 Disposition: Refer to Observation Condition: Good Clinical Impression: Kidney stone - Discharge Information Sepsis Event Note (ED) - Focused Exam Vital Signs: Vital Signs Temp Pulse Resp BP Pulse Ox 02/21/20 13:46 36.1 C 79 16 163/80 H 95 - My Orders Last 24 Hours: My Active Orders 02/21/20 13:37 Pulse Oximetry [RC] ASDIRECTED Sodium Chloride 0.9% [Saline Flush] 10 ml FLUSH ASDIRECTED PRN Sodium Chloride 0.9% [Saline Flush] 2.5 ml FLUSH ASDIRECTED PRN Saline Lock Insert [OM.PC] Stat - Assessment/Plan Last 24 Hours: My Active Orders 02/21/20 13:37 Pulse Oximetry [RC] ASDIRECTED Sodium Chloride 0.9% [Saline Flush] 10 ml FLUSH ASDIRECTED PRN Sodium Chloride 0.9% [Saline Flush] 2.5 ml FLUSH ASDIRECTED PRN Saline Lock Insert [OM.PC] Stat
[2020-02-21 14:31] LABS: CARBON DIOXIDE,CO2 25.9 mmol/L (21.0-32.0)
[2020-02-21] MEDS ORDERED: Morphine 2 MG/ML SYRINGE IVPUSH ONE (14:39)
[2020-02-21] MEDS ORDERED: cefTRIAXone 1 GM in Premix Bag 1 BAG IV ONE (16:06)
[2020-02-21] MEDS ORDERED: oxyCODONE 5 MG Tab PO PRN (17:37)
[2020-02-21] MEDS ORDERED: Ondansetron 4 MG/2 ML SDV IVPUSH PRN (17:37)
[2020-02-21] MEDS ORDERED: Morphine 10 MG/ML Syringe IVPUSH PRN (17:37)
--- NOTE | 2020-02-21 17:43 | PCM.HP.2 ---
H&P History of Present Illness - General Date of Service: 02/21/20 Admit Problem/Dx: Admission Diagnosis/Problem Admission Diagnosis/Problem Kidney stone - History of Present Illness Initial Comments - Free Text/Narative: 79 yo female with pmh of renal stones, hypothyroidism, and sarcoidosis who presents with a two day history of right flank pain. Patient denies any fevers, chills, or dysuria. She was seen in the ED yesterday and noted to have a 4mm stone in the right Ureter. Her UA had WBCs and she was discharged home with keflex. She presents to the ED today with increase in her pain. abdom Pain Score (Numeric/FACES): 10 - Related Data Allergies/Adverse Reactions: Allergies Allergy/AdvReac Type Severity Reaction Status Date / Time diclofenac sodium Allergy Intermediate Nausea and Verified 02/21/20 13:51 [From Voltaren] Vomiting adhesive Allergy Rash Verified 02/21/20 13:51 aspirin Allergy Hives Verified 02/21/20 13:51 baclofen Allergy Cannot Verified 02/21/20 13:51 Remember calcium Allergy Nausea and Verified 02/21/20 13:51 Vomiting calcium chloride Allergy Hives Verified 02/21/20 13:51 codeine Allergy Headache Verified 02/21/20 13:51 colistimethate sodium Allergy Rash Verified 02/21/20 13:51 [From Coly-Mycin M] diclofenac [From Voltaren] Allergy Nausea and Verified 02/21/20 13:51 Vomiting erythromycin base Allergy Hives Verified 02/21/20 13:51 [Erythromycin Base] fluticasone [From Flonase] Allergy Itching Verified 02/21/20 14:09 gabapentin Allergy Chest Pain Verified 02/21/20 14:09 latex Allergy Hives Verified 02/21/20 14:09 levofloxacin Allergy Cannot Verified 02/21/20 14:09 Remember meloxicam Allergy Nausea and Verified 02/21/20 14:09 Vomiting naproxen [From Naprosyn] Allergy Nausea and Verified 02/21/20 14:09 Vomiting NSAIDS (Non-Steroidal Allergy Rash Verified 02/21/20 14:09 Anti-Inflamma nystatin Allergy Itching Verified 02/21/20 14:09 propoxyphene [From Darvon] Allergy Rash Verified 02/21/20 14:09 propoxyphene HCl Allergy Nausea and Verified 02/21/20 14:09 [From Darvon] Vomiting salicylates Allergy Cannot Verified 02/21/20 14:09 Remember shellfish derived Allergy Rash Verified 02/21/20 14:09 sulindac Allergy Nausea and Verified 02/21/20 14:09 Vomiting tamsulosin Allergy Rash Verified 02/21/20 14:09 tramadol Allergy Nausea and Verified 02/21/20 14:09 Vomiting tramadol HCl [From Ultram] Allergy Nausea and Verified 02/21/20 14:09 Vomiting umeclidinium Allergy Nausea Verified 02/21/20 14:09 [From Anoro Ellipta] valacyclovir [From Valtrex] Allergy Rash Verified 02/21/20 14:09 vilanterol Allergy Nausea Verified 02/21/20 14:09 [From Anoro Ellipta] naproxen Allergy Rash Uncoded 02/21/20 14:09 propoxyphene Allergy Nausea and Uncoded 02/21/20 14:09 Vomiting Home Medications: Home Meds Levothyroxine Sodium [Synthroid] 50 mcg PO ASDIRECTED 08/31/13 [History] Acyclovir 400 mg PO TID PRN 02/08/18 [History] Esomeprazole Magnesium [Nexium] 40 mg PO BID 10/14/18 [History] Levothyroxine Sodium [Euthyrox] 25 mcg PO ASDIRECTED 10/14/18 [History] Multivitamin/Iron/Folic Acid [Centrum Adults Tablet] 1 tab PO DAILY 10/14/18 [History] predniSONE 10 mg PO BID 10/14/18 [History] Acetaminophen [Acetaminophen Extra Strength] 500 - 1,000 mg PO Q6H PRN #30 tablet 02/20/20 [Rx] Ondansetron [Zofran] 4 mg PO Q8H PRN #15 tab 02/20/20 [Rx] cephALEXin [Keflex] 500 mg PO BID 7 Days #14 capsule 02/20/20 [Rx] oxyCODONE 5 - 10 mg PO Q6H PRN #20 tab 02/20/20 [Rx] Past Medical History HEENT History: Reports: Cataract, Other (See Below) Other HEENT History: had cataract surgery on 10/13/18, wears glasses Cardiovascular History: Reports: High Cholesterol Respiratory History: Reports: Other (See Below) Other Respiratory History: has Sarcoid lungs Gastrointestinal History: Reports: GERD Genitourinary History: Reports: Renal Calculus [employer] History: Reports: Musculoskeletal History: Reports: Back Pain, Chronic, Fibromyalgia Neurological History: Reports: Other (See Below) Other Neuro History: fibromyalgia Psychiatric History: Reports: Anxiety Endocrine/Metabolic History: Reports: Hypothyroidism Hematologic History: Reports: Anesthesia Reaction Other Hematologic History: states her "nerves overpowered the sedation" given pre-op and caused her "heart to stop" during appendectomy. Surgery was cancelled and done the next day. States she was not asleep when a WELT BEATER surgery was started. Immunologic History: Reports: Immunosuppression, Other (See Below) Dermatologic History: Reports: Other (See Below) Other Dermatologic History: hx of cold sores - Infectious Disease History Infectious Disease History: Reports: Chicken Pox - Past Surgical History Head Surgeries/Procedures: Reports: None HEENT Surgical History: Reports: Cataract Surgery, Tonsillectomy Cardiovascular Surgical History: Reports: Varicose Other Cardiovascular Surgeries/Procedures: varicose vein ligation because of blood clot in vein GI Surgical History: Reports: Appendectomy, Cholecystectomy Female Surgical History: Reports: Breast Biopsy, Hysterectomy, Lithotripsy/ESWL, Salpingo-Oophorectomy, Tubal Ligation, Other (See Below) Neurological Surgical History: Reports: C-Spine, Spinal Fusion Musculoskeletal Surgical History: Reports: Other (See Below) Other Musculoskeletal Surgeries/Procedures:: bunionectomy Oncologic Surgical History: Reports: Lumpectomy Social & Family History - Family History Family Medical History: Noncontributory - Tobacco Use Tobacco Use Status *Q: Never Tobacco User - Caffeine Use Caffeine Use: Reports: Coffee - Recreational Drug Use Recreational Drug Use: No H&P Review of Systems - Review of Systems: Review Of Systems: Comprehensive ROS is negative, except as noted in HPI. Exam - Exam Exam: See Below - Vital Signs Vital Signs: Last Vital Signs Temp 36.1 C 02/21/20 13:46 Pulse 79 02/21/20 13:46 Resp 16 02/21/20 13:46 BP 163/80 H 02/21/20 13:46 Pulse Ox 95 02/21/20 13:46 Weight: 52.617 kg - Exam General: Alert, Oriented HEENT: Mucosa Moist & [place] Lungs: Clear to Auscultation, Normal Respiratory Effort Cardiovascular: Regular Rate, Regular Rhythm GI/Abdominal Exam: Normal Bowel Sounds, Soft, Non-Tender Back Exam: CVA Tenderness (R) Extremities: Non-Tender, No Pedal Edema Skin: Warm, Dry, Intact Neurological: Cranial Nerves Intact - Patient Data Lab Results Last 24 hrs: Laboratory Results - last 24 hr 02/21/20 02/21/20 02/21/20 Range/Units 14:00 14:00 14:00 WBC 12.81 H (4.0-11.0) K/uL RBC 4.43 (4.30-5.90) M/uL Hgb 13.7 (12.0-16.0) g/dL Hct 41.5 (36.0-46.0) % MCV 93.7 (80.0-98.0) fL MCH 30.9 (27.0-32.0) pg MCHC 33.0 (31.0-37.0) g/dL RDW Std Deviation 43.8 (28.0-62.0) fl RDW Coeff of Miranda 13 (11.0-15.0) % Plt Count 269 (150-400) K/uL MPV 8.70 (7.40-12.00) fL Neut % (Auto) 87.4 H (48.0-80.0) % Lymph % (Auto) 5.2 L (16.0-40.0) % [place] % (Auto) 7.1 (0.0-15.0) % Eos % (Auto) 0.1 (0.0-7.0) % Baso % (Auto) 0.2 (0.0-1.5) % Neut # (Auto) 11.2 H (1.4-5.7) K/uL Lymph # (Auto) 0.7 (0.6-2.4) K/uL [place] # (Auto) 0.9 H (0.0-0.8) K/uL Eos # (Auto) 0.0 (0.0-0.7) K/uL Baso # (Auto) 0.0 (0.0-0.1) K/uL Nucleated RBC % 0.0 /100WBC Nucleated RBCs # 0 K/uL Lactate 1.4 (0.20-2.00) mmol/L Sodium 137 (136-145) mmol/L Potassium 4.0 (3.5-5.1) mmol/L Chloride 100 (98-107) mmol/L Carbon Dioxide 25.9 (21.0-32.0) mmol/L BUN 23 H (7.0-18.0) mg/dL Creatinine 1.2 H (0.6-1.0) mg/dL Est Cr Clr Drug Dosing 26.41 mL/min Estimated GFR (MDRD) 43.1 ml/min Glucose 96 (74-106) mg/dL Calcium 9.6 (8.5-10.1) mg/dL Urine Color Urine Appearance Urine pH (5.0-8.0) Ur Specific [place] (1.001-1.035) Urine Protein (NEGATIVE) mg/dL Urine Glucose (UA) (NEGATIVE) mg/dL Urine Ketones (NEGATIVE) mg/dL Urine Occult Blood (NEGATIVE) Urine Nitrite (NEGATIVE) Urine Bilirubin (NEGATIVE) Urine Urobilinogen (<2.0) EU/dL Ur Leukocyte Esterase (NEGATIVE) Urine RBC (0-2/HPF) Urine WBC (0-5/HPF) Ur Epithelial Cells (NONE-FEW) Amorphous Sediment (NEGATIVE) Urine Bacteria (NEGATIVE) Urine Mucus (NONE-MOD) SARS-CoV-2 RNA (CORINNE) (NEGATIVE) 02/21/20 02/21/20 Range/Units 15:25 16:04 WBC (4.0-11.0) K/uL RBC (4.30-5.90) M/uL Hgb (12.0-16.0) g/dL Hct (36.0-46.0) % MCV (80.0-98.0) fL MCH (27.0-32.0) pg MCHC (31.0-37.0) g/dL RDW Std Deviation (28.0-62.0) fl RDW Coeff of Miranda (11.0-15.0) % Plt Count (150-400) K/uL MPV (7.40-12.00) fL Neut % (Auto) (48.0-80.0) % Lymph % (Auto) (16.0-40.0) % [place] % (Auto) (0.0-15.0) % Eos % (Auto) (0.0-7.0) % Baso % (Auto) (0.0-1.5) % Neut # (Auto) (1.4-5.7) K/uL Lymph # (Auto) (0.6-2.4) K/uL [place] # (Auto) (0.0-0.8) K/uL Eos # (Auto) (0.0-0.7) K/uL Baso # (Auto) (0.0-0.1) K/uL Nucleated RBC % /100WBC Nucleated RBCs # K/uL Lactate (0.20-2.00) mmol/L Sodium (136-145) mmol/L Potassium (3.5-5.1) mmol/L Chloride (98-107) mmol/L Carbon Dioxide (21.0-32.0) mmol/L BUN (7.0-18.0) mg/dL Creatinine (0.6-1.0) mg/dL Est Cr Clr Drug Dosing mL/min Estimated GFR (MDRD) ml/min Glucose (74-106) mg/dL Calcium (8.5-10.1) mg/dL Urine Color YELLOW Urine Appearance CLEAR Urine pH 6.5 (5.0-8.0) Ur Specific [place] 1.015 (1.001-1.035) Urine Protein NEGATIVE (NEGATIVE) mg/dL Urine Glucose (UA) NEGATIVE (NEGATIVE) mg/dL Urine Ketones 15 H (NEGATIVE) mg/dL Urine Occult Blood LARGE H (NEGATIVE) Urine Nitrite NEGATIVE (NEGATIVE) Urine Bilirubin NEGATIVE (NEGATIVE) Urine Urobilinogen 0.2 (<2.0) EU/dL Ur Leukocyte Esterase TRACE H (NEGATIVE) Urine RBC 8-12 (0-2/HPF) Urine WBC 2-3 (0-5/HPF) Ur Epithelial Cells OCCASIONAL (NONE-FEW) Amorphous Sediment FEW (NEGATIVE) Urine Bacteria FEW (NEGATIVE) Urine Mucus FEW (NONE-MOD) SARS-CoV-2 RNA (CORINNE) NEGATIVE (NEGATIVE) Result Diagrams: 02/22/20 05:22 02/22/20 05:22 Sepsis Event Note - Evaluation Sepsis Screening Result: No Definite Risk - Focused Exam Vital Signs: Vital Signs Temp Pulse Resp BP Pulse Ox 02/21/20 13:46 36.1 C 79 16 163/80 H 95 Problem List Initiated/Reviewed/Updated: Yes Orders Last 24hrs: Active Orders 24 hr Category Date Time Status Admission Status [Patient Status] [ADT] Stat ADT 02/21/20 15:58 Active Antiembolic Devices [RC] PER UNIT ROUTINE Care 02/21/20 17:38 Active Oxygen Therapy [RC] PRN Care 02/21/20 17:37 Active Pulse Oximetry [RC] ASDIRECTED Care 02/21/20 13:37 Active Up ad Lynn [RC] ASDIRECTED Care 02/21/20 17:37 Active VTE/DVT Education [RC] PER UNIT ROUTINE Care 02/21/20 17:37 Active Vital Signs [RC] Q4H Care 02/21/20 17:37 Active Regular Diet [DIET] Diet 02/21/20 Breakfast Active BASIC METABOLIC PANEL,BMP [CHEM] AM Lab 02/22/20 05:11 Ordered CBC WITH AUTO DIFF [HEME] AM Lab 02/22/20 05:11 Ordered CULTURE URINE [RM] Stat Lab 02/21/20 17:37 Ordered Levothyroxine Med 02/22/20 09:00 Active 50 mcg PO DAILY Morphine Med 02/21/20 17:37 Active 2 mg IVPUSH Q2H PRN Ondansetron [Zofran] Med 02/21/20 17:37 Active 4 mg IVPUSH Q4H PRN Sodium Chloride 0.9% [Saline Flush] Med 02/21/20 13:37 Active 10 ml FLUSH ASDIRECTED PRN Sodium Chloride 0.9% [Saline Flush] Med 02/21/20 13:37 Active 2.5 ml FLUSH ASDIRECTED PRN cefTRIAXone [Rocephin] 1 gm Med 02/22/20 16:45 Active Sodium Chloride 0.9% [Normal Saline] 50 ml IV Q24H oxyCODONE Med 02/21/20 17:37 Active 5 mg PO Q4H PRN predniSONE Med 02/22/20 09:00 Active 5 mg PO DAILY Saline Lock Insert [OM.PC] Stat Oth 02/21/20 13:37 Ordered Sequential Compression Device [OM.PC] Per Unit Routine Oth 02/21/20 17:37 Ordered Resuscitation Status Routine Resus Stat 02/21/20 17:37 Ordered Medication Orders Ceftriaxone Sodium 1 gm/ (Sodium Chloride) 50 mls @ 100 mls/hr IV Q24H ENIO Levothyroxine Sodium (Levothyroxine) 50 mcg PO DAILY ENIO Morphine Sulfate (Morphine) 2 mg IVPUSH Q2H PRN PRN Reason: Pain (severe 7-10) Stop: 02/22/20 17:37 Ondansetron HCl (Zofran) 4 mg IVPUSH Q4H PRN PRN Reason: Nausea Oxycodone HCl (Oxycodone) 5 mg PO Q4H PRN PRN Reason: Pain (moderate 4-6) Prednisone (Prednisone) 5 mg PO DAILY ENIO Sodium Chloride (Saline Flush) 2.5 ml FLUSH ASDIRECTED PRN PRN Reason: Keep Vein Open Last Admin: 02/21/20 14:01 Dose: 2.5 ml Documented by: REGINO Sodium Chloride (Saline Flush) 10 ml FLUSH ASDIRECTED PRN PRN Reason: Keep Vein Open Last Admin: 02/21/20 14:01 Dose: 10 ml Documented by: REGINO Assessment/Plan Comment:: 79 yo female admitted for right ureter stone. Dr. Gruber has been consulted. Will give morphine and oxycodone for pain management.
[2020-02-22 06:16] LABS: BLOOD UREA NITROGEN,BUN 19 mg/dL (7.0-18.0); CARBON DIOXIDE,CO2 28.6 mmol/L (21.0-32.0); CHLORIDE,CL 105 mmol/L (98-107); GLUCOSE RANDOM 80 mg/dL (74-106); POTASSIUM,K 3.9 mmol/L (3.5-5.1); SODIUM,NA 141 mmol/L (136-145)
[2020-02-22] MEDS ORDERED: Levothyroxine 25 MCG Tab PO SCH (07:30)
--- NOTE | 2020-02-22 08:56 | CT ---
INDICATION: Abdominal pain COMPARISON: No prior CTs available for comparison TECHNIQUE: CT examination of the abdomen and pelvis was performed without intravenous contrast. Thin section axial images were obtained from the lung bases through the pubic symphysis. Oral contrast was not administered. Please note that all CT scans at this facility use dose modulation, iterative reconstruction, and/or weight-based dosing when appropriate to reduce radiation dose to as low as reasonably achievable. FINDINGS: LUNG BASES: Heart size normal to lung bases. Atherosclerotic vascular calcifications. Granulomatous mediastinal lymph nodes calcifications. Bibasilar atelectasis or scarring. LIVER/BILIARY SYSTEM:A few scattered low-density lesions which are too small to characterize but likely cysts. Biliary ductal system is normal given patient age and prior cholecystectomy. ADRENALS: Normal non-contrast appearance KIDNEYS, URETERS and BLADDER:Intrarenal calculi bilaterally in the 1-6 millimeter range. There is left-sided hydronephrosis and hydroureter due to a 4.4 millimeter calcified calculus in the mid left ureter. No calculi within the bladder. SPLEEN:Normal non-contrast appearance. PANCREAS: Normal non-contrast appearance. RETROPERITONEUM and MESENTERY: There is no mass, adenopathy or aortic aneurysm. Atherosclerotic vascular calcifications. GASTROINTESTINAL SYSTEM: There is no evidence of diverticulitis, colitis, mechanical obstruction, or appendicitis. The small bowel as visualized appears normal.Fecal retention. Diverticulosis. PELVIS: No mass, adenopathy or free fluid. OSSEOUS STRUCTURES and ABDOMINAL WALL: Demineralized osseous structures, degenerative changes and scoliosis.No significant abdominal wall defect. OTHER: No free fluid or free air. IMPRESSION: 1. There is left-sided obstructive uropathy due to a 4.4 millimeter calcified calculus in the midleft ureter. There are nonobstructive intrarenal calculi bilaterally. 2. Other incidental nonacute appearing findings as discussed in the body of the report. Please review the comment. Please note that all CT scans at this facility use dose modulation, iterative reconstruction, and/or weight-based dosing when appropriate to reduce radiation dose to as low as reasonably achievable. Dictated by Emre Saleem MD @ Feb 22 2020 8:49AM Signed by Dr. Emre Saleem @ Feb 22 2020 8:54AM
[2020-02-22] MEDS ORDERED: predniSONE 10 MG Tab PO SCH (09:00)
--- NOTE | 2020-02-22 10:01 | PCM.PN ---
- General Info Date of Service: 02/22/20 - Review of Systems Systems Review Comment:: flank pain is returning this morning - Patient Data Vitals - Most Recent: Last Vital Signs Temp 36.6 C 02/22/20 03:23 Pulse 74 02/22/20 03:23 Resp 14 02/22/20 03:23 BP 114/55 L 02/22/20 03:23 Pulse Ox 91 L 02/22/20 03:23 Weight - Most Recent: 52.617 kg I&O - Last 24 Hours: Intake & Output 02/21/20 02/22/20 02/22/20 22:59 06:59 14:59 Intake Total 300 Output Total 1000 Balance -700 Lab Results Last 24 Hours: Laboratory Results - last 24 hr 02/21/20 02/21/20 02/21/20 Range/Units 14:00 14:00 14:00 WBC 12.81 H (4.0-11.0) K/uL RBC 4.43 (4.30-5.90) M/uL Hgb 13.7 (12.0-16.0) g/dL Hct 41.5 (36.0-46.0) % MCV 93.7 (80.0-98.0) fL MCH 30.9 (27.0-32.0) pg MCHC 33.0 (31.0-37.0) g/dL RDW Std Deviation 43.8 (28.0-62.0) fl RDW Coeff of Miranda 13 (11.0-15.0) % Plt Count 269 (150-400) K/uL MPV 8.70 (7.40-12.00) fL Neut % (Auto) 87.4 H (48.0-80.0) % Lymph % (Auto) 5.2 L (16.0-40.0) % [place] % (Auto) 7.1 (0.0-15.0) % Eos % (Auto) 0.1 (0.0-7.0) % Baso % (Auto) 0.2 (0.0-1.5) % Neut # (Auto) 11.2 H (1.4-5.7) K/uL Lymph # (Auto) 0.7 (0.6-2.4) K/uL [place] # (Auto) 0.9 H (0.0-0.8) K/uL Eos # (Auto) 0.0 (0.0-0.7) K/uL Baso # (Auto) 0.0 (0.0-0.1) K/uL Nucleated RBC % 0.0 /100WBC Nucleated RBCs # 0 K/uL Lactate 1.4 (0.20-2.00) mmol/L Sodium 137 (136-145) mmol/L Potassium 4.0 (3.5-5.1) mmol/L Chloride 100 (98-107) mmol/L Carbon Dioxide 25.9 (21.0-32.0) mmol/L BUN 23 H (7.0-18.0) mg/dL Creatinine 1.2 H (0.6-1.0) mg/dL Est Cr Clr Drug Dosing 26.41 mL/min Estimated GFR (MDRD) 43.1 ml/min Glucose 96 (74-106) mg/dL Calcium 9.6 (8.5-10.1) mg/dL Urine Color Urine Appearance Urine pH (5.0-8.0) Ur Specific [place] (1.001-1.035) Urine Protein (NEGATIVE) mg/dL Urine Glucose (UA) (NEGATIVE) mg/dL Urine Ketones (NEGATIVE) mg/dL Urine Occult Blood (NEGATIVE) Urine Nitrite (NEGATIVE) Urine Bilirubin (NEGATIVE) Urine Urobilinogen (<2.0) EU/dL Ur Leukocyte Esterase (NEGATIVE) Urine RBC (0-2/HPF) Urine WBC (0-5/HPF) Ur Epithelial Cells (NONE-FEW) Amorphous Sediment (NEGATIVE) Urine Bacteria (NEGATIVE) Urine Mucus (NONE-MOD) SARS-CoV-2 RNA (CORINNE) (NEGATIVE) 02/21/20 02/21/20 02/22/20 Range/Units 15:25 16:04 05:22 WBC 9.10 (4.0-11.0) K/uL RBC 3.91 L (4.30-5.90) M/uL Hgb 12.1 (12.0-16.0) g/dL Hct 37.0 (36.0-46.0) % MCV 94.6 (80.0-98.0) fL MCH 30.9 (27.0-32.0) pg MCHC 32.7 (31.0-37.0) g/dL RDW Std Deviation 43.5 (28.0-62.0) fl RDW Coeff of Miranda 13 (11.0-15.0) % Plt Count 247 (150-400) K/uL MPV 8.90 (7.40-12.00) fL Neut % (Auto) 75.3 (48.0-80.0) % Lymph % (Auto) 11.5 L (16.0-40.0) % [place] % (Auto) 11.8 (0.0-15.0) % Eos % (Auto) 1.2 (0.0-7.0) % Baso % (Auto) 0.2 (0.0-1.5) % Neut # (Auto) 6.9 H (1.4-5.7) K/uL Lymph # (Auto) 1.1 (0.6-2.4) K/uL [place] # (Auto) 1.1 H (0.0-0.8) K/uL Eos # (Auto) 0.1 (0.0-0.7) K/uL Baso # (Auto) 0.0 (0.0-0.1) K/uL Nucleated RBC % 0.0 /100WBC Nucleated RBCs # 0 K/uL Lactate (0.20-2.00) mmol/L Sodium (136-145) mmol/L Potassium (3.5-5.1) mmol/L Chloride (98-107) mmol/L Carbon Dioxide (21.0-32.0) mmol/L BUN (7.0-18.0) mg/dL Creatinine (0.6-1.0) mg/dL Est Cr Clr Drug Dosing mL/min Estimated GFR (MDRD) ml/min Glucose (74-106) mg/dL Calcium (8.5-10.1) mg/dL Urine Color YELLOW Urine Appearance CLEAR Urine pH 6.5 (5.0-8.0) Ur Specific [place] 1.015 (1.001-1.035) Urine Protein NEGATIVE (NEGATIVE) mg/dL Urine Glucose (UA) NEGATIVE (NEGATIVE) mg/dL Urine Ketones 15 H (NEGATIVE) mg/dL Urine Occult Blood LARGE H (NEGATIVE) Urine Nitrite NEGATIVE (NEGATIVE) Urine Bilirubin NEGATIVE (NEGATIVE) Urine Urobilinogen 0.2 (<2.0) EU/dL Ur Leukocyte Esterase TRACE H (NEGATIVE) Urine RBC 8-12 (0-2/HPF) Urine WBC 2-3 (0-5/HPF) Ur Epithelial Cells OCCASIONAL (NONE-FEW) Amorphous Sediment FEW (NEGATIVE) Urine Bacteria FEW (NEGATIVE) Urine Mucus FEW (NONE-MOD) SARS-CoV-2 RNA (CORINNE) NEGATIVE (NEGATIVE) 02/22/20 Range/Units 05:22 WBC (4.0-11.0) K/uL RBC (4.30-5.90) M/uL Hgb (12.0-16.0) g/dL Hct (36.0-46.0) % MCV (80.0-98.0) fL MCH (27.0-32.0) pg MCHC (31.0-37.0) g/dL RDW Std Deviation (28.0-62.0) fl RDW Coeff of Miranda (11.0-15.0) % Plt Count (150-400) K/uL MPV (7.40-12.00) fL Neut % (Auto) (48.0-80.0) % Lymph % (Auto) (16.0-40.0) % [place] % (Auto) (0.0-15.0) % Eos % (Auto) (0.0-7.0) % Baso % (Auto) (0.0-1.5) % Neut # (Auto) (1.4-5.7) K/uL Lymph # (Auto) (0.6-2.4) K/uL [place] # (Auto) (0.0-0.8) K/uL Eos # (Auto) (0.0-0.7) K/uL Baso # (Auto) (0.0-0.1) K/uL Nucleated RBC % /100WBC Nucleated RBCs # K/uL Lactate (0.20-2.00) mmol/L Sodium 141 (136-145) mmol/L Potassium 3.9 (3.5-5.1) mmol/L Chloride 105 (98-107) mmol/L Carbon Dioxide 28.6 (21.0-32.0) mmol/L BUN 19 H (7.0-18.0) mg/dL Creatinine 0.8 (0.6-1.0) mg/dL Est Cr Clr Drug Dosing 39.61 mL/min Estimated GFR (MDRD) > 60.0 ml/min Glucose 80 (74-106) mg/dL Calcium 8.7 (8.5-10.1) mg/dL Urine Color Urine Appearance Urine pH (5.0-8.0) Ur Specific [place] (1.001-1.035) Urine Protein (NEGATIVE) mg/dL Urine Glucose (UA) (NEGATIVE) mg/dL Urine Ketones (NEGATIVE) mg/dL Urine Occult Blood (NEGATIVE) Urine Nitrite (NEGATIVE) Urine Bilirubin (NEGATIVE) Urine Urobilinogen (<2.0) EU/dL Ur Leukocyte Esterase (NEGATIVE) Urine RBC (0-2/HPF) Urine WBC (0-5/HPF) Ur Epithelial Cells (NONE-FEW) Amorphous Sediment (NEGATIVE) Urine Bacteria (NEGATIVE) Urine Mucus (NONE-MOD) SARS-CoV-2 RNA (CORINNE) (NEGATIVE) Med Orders - Current: Current Medications Ceftriaxone Sodium 1 gm/ (Sodium Chloride) 50 mls @ 100 mls/hr IV Q24H [facility] Levothyroxine Sodium (Synthroid) 50 mcg PO ACBREAKFAST [facility] Morphine Sulfate (Morphine) 2 mg IVPUSH Q2H PRN PRN Reason: Pain (severe 7-10) Stop: 02/22/20 17:37 Ondansetron HCl (Zofran) 4 mg IVPUSH Q4H PRN PRN Reason: Nausea Oxycodone HCl (Oxycodone) 5 mg PO Q4H PRN PRN Reason: Pain (moderate 4-6) Prednisone (Prednisone) 5 mg PO DAILY [facility] Last Admin: 02/22/20 09:22 Dose: 5 mg Documented by: Sodium Chloride (Saline Flush) 2.5 ml FLUSH ASDIRECTED PRN PRN Reason: Keep Vein Open Last Admin: 02/21/20 14:01 Dose: 2.5 ml Documented by: Sodium Chloride (Saline Flush) 10 ml FLUSH ASDIRECTED PRN PRN Reason: Keep Vein Open Last Admin: 02/21/20 14:01 Dose: 10 ml Documented by: Discontinued Medications Fentanyl (Fentanyl) 50 mcg IVPUSH ONETIME ONE Stop: 02/21/20 13:38 Last Admin: 02/21/20 14:10 Dose: 50 mcg Documented by: Lactated Ringer's (Ringers, Lactated) 1,000 mls @ 999 mls/hr IV .BOLUS ONE Stop: 02/21/20 14:37 Last Admin: 02/21/20 14:10 Dose: 999 mls/hr Documented by: Ceftriaxone Sodium/Dextrose 1 (gm/ Premix) 50 mls @ 100 mls/hr IV ONETIME ONE Stop: 02/21/20 16:35 Last Admin: 02/21/20 17:12 Dose: 100 mls/hr Documented by: Levothyroxine Sodium (Levothyroxine) 50 mcg PO ACBREAKFAST ENIO Last Admin: 02/22/20 07:07 Dose: 50 mcg Documented by: Morphine Sulfate (Morphine) 4 mg IVPUSH ONETIME ONE Stop: 02/21/20 14:40 Last Admin: 02/21/20 14:57 Dose: 4 mg Documented by: Ondansetron HCl (Zofran) 4 mg IVPUSH ONETIME ONE Stop: 02/21/20 13:38 Last Admin: 02/21/20 14:10 Dose: 4 mg Documented by: Ondansetron HCl (Zofran) 4 mg IVPUSH ONETIME ONE Stop: 02/21/20 15:59 Last Admin: 02/21/20 17:11 Dose: 4 mg Documented by: - Exam General: Alert, Oriented Lungs: Clear to Auscultation, Normal Respiratory Effort Cardiovascular: Regular Rate, Regular Rhythm GI/Abdominal Exam: Normal Bowel Sounds, Soft, Non-Tender Extremities: Non-Tender, No Pedal Edema Skin: Warm, Dry, Intact Neurological: No New Focal Deficit Sepsis Event Note - Evaluation Sepsis Screening Result: No Definite Risk - Focused Exam Vital Signs: Vital Signs Temp Pulse Resp BP Pulse Ox 02/22/20 03:23 36.6 C 74 14 114/55 L 91 L 02/22/20 00:34 36.5 C 78 14 105/58 L 90 L - Problem List Review Problem List Initiated/Reviewed/Updated: Yes - My Orders Last 24 Hours: My Active Orders 02/21/20 15:25 CULTURE URINE [RM] Stat 02/21/20 17:37 Oxygen Therapy [RC] PRN Up ad Lynn [RC] ASDIRECTED VTE/DVT Education [RC] PER UNIT ROUTINE Vital Signs [RC] Q4H Morphine 2 mg IVPUSH Q2H PRN Ondansetron [Zofran] 4 mg IVPUSH Q4H PRN oxyCODONE 5 mg PO Q4H PRN Sequential Compression Device [OM.PC] Per Unit Routine Resuscitation Status Routine 02/21/20 17:38 Antiembolic Devices [RC] PER UNIT ROUTINE 02/21/20 17:42 Notify Provider Consults [RC] ASDIRECTED Consult to Physician [CONS] Routine 02/22/20 09:00 predniSONE 5 mg PO DAILY 02/22/20 16:45 cefTRIAXone [Rocephin] 1 gm Sodium Chloride 0.9% [Normal Saline] 50 ml IV Q24H 02/23/20 07:30 Levothyroxine [Synthroid] 50 mcg PO ACBREAKFAST - Plan Plan:: 79 yo female admitted for left ureter stone. Dr. Gruber has been consulted. Pain is controlled with morphine.
--- NOTE | 2020-02-22 11:54 | PCM.DCSUM1 ---
Discharge Summary - Hospital Course Brief History: 79 yo female with pmh of renal stones, hypothyroidism, and sarcoidosis who presents with a two day history of right flank pain. Patient denies any fevers, chills, or dysuria. She was seen in the ED yesterday and noted to have a 4mm stone in the right Ureter. Her UA had WBCs and she was discharged home with keflex. She presents to the ED today with increase in her pain. - Discharge Data Discharge Date: 02/22/20 Discharge Disposition: Home, Self-Care 01 Condition: Good - Referral to Home Health Primary Care Physician: Christian Cruz MD - Patient Summary/Data Consults: Consultations 02/21/20 17:42 Consult to Physician [CONS] Routine Hospital Course: Admitting diagnoses Renal stones Intractable pain Discharge diagnoses Renal stones Other PMH Hypothyroidism Sarcoidosis This 79-year-old female was admitted for renal stones and intractable pain. Dr. Gruber was consulted. He saw and evaluated patient this morning felt she is stable for discharge. He reviewed CT scan and felt there is no hydronephrosis. He will set up a ESWL for this . Patient feels comfortable going home she has some pain medications from the ER still and will take Tylenol as well. No further antibiotics are needed at this time, this was reviewed with Dr. Gruber. She will be discharged home with equipment to strain urine until ESWL procedure on . She is to return to the ER sooner if concerns such as worsening pain fever chills should occur. - Patient Instructions Diet: GI Soft/Low Residue/Low Fiber Activity: No Strenuous Activities Driving: Do Not Drive Showering/Bathing: May Shower Notify Provider of: Fever, Increased Pain, Swelling and Redness, Drainage, Nausea and/or Vomiting Other/Special Instructions: Strain urine at home - Discharge Plan *PRESCRIPTION DRUG MONITORING PROGRAM REVIEWED*: Not Applicable *COPY OF PRESCRIPTION DRUG MONITORING REPORT IN PATIENT DAVID: Not Applicable Home Medications: Home Meds Levothyroxine Sodium [Synthroid] 50 mcg PO ASDIRECTED 08/31/13 [History] Acyclovir 400 mg PO TID PRN 02/08/18 [History] Esomeprazole Magnesium [Nexium] 40 mg PO BID 10/14/18 [History] Levothyroxine Sodium [Euthyrox] 25 mcg PO ASDIRECTED 10/14/18 [History] Multivitamin/Iron/Folic Acid [Centrum Adults Tablet] 1 tab PO DAILY 10/14/18 [History] predniSONE 10 mg PO BID 10/14/18 [History] Acetaminophen [Acetaminophen Extra Strength] 500 - 1,000 mg PO Q6H PRN #30 tablet 02/20/20 [Rx] Ondansetron [Zofran] 4 mg PO Q8H PRN #15 tab 02/20/20 [Rx] oxyCODONE 5 - 10 mg PO Q6H PRN #20 tab 02/20/20 [Rx] Oxygen Therapy Mode: Room Air Patient Handouts: Low-Purine Eating Plan, Kidney Stones, [id number] Referrals: Christian Cruz MD [Primary Care Provider] - - Discharge Summary/Plan Comment DC Time >30 min.: No - Patient Data Vitals - Most Recent: Last Vital Signs Temp 97.9 F 02/22/20 03:23 Pulse 74 02/22/20 03:23 Resp 14 02/22/20 03:23 BP 114/55 L 02/22/20 03:23 Pulse Ox 91 L 02/22/20 03:23 Weight - Most Recent: 52.617 kg I&O - Last 24 hours: Intake & Output 02/21/20 02/22/20 02/22/20 22:59 06:59 14:59 Intake Total 300 Output Total 1000 Balance -700 Lab Results - Last 24 hrs: Laboratory Results - last 24 hr 02/21/20 02/21/20 02/21/20 Range/Units 14:00 14:00 14:00 WBC 12.81 H (4.0-11.0) K/uL RBC 4.43 (4.30-5.90) M/uL Hgb 13.7 (12.0-16.0) g/dL Hct 41.5 (36.0-46.0) % MCV 93.7 (80.0-98.0) fL MCH 30.9 (27.0-32.0) pg MCHC 33.0 (31.0-37.0) g/dL RDW Std Deviation 43.8 (28.0-62.0) fl RDW Coeff of Miranda 13 (11.0-15.0) % Plt Count 269 (150-400) K/uL MPV 8.70 (7.40-12.00) fL Neut % (Auto) 87.4 H (48.0-80.0) % Lymph % (Auto) 5.2 L (16.0-40.0) % Cooper % (Auto) 7.1 (0.0-15.0) % Eos % (Auto) 0.1 (0.0-7.0) % Baso % (Auto) 0.2 (0.0-1.5) % Neut # (Auto) 11.2 H (1.4-5.7) K/uL Lymph # (Auto) 0.7 (0.6-2.4) K/uL Cooper # (Auto) 0.9 H (0.0-0.8) K/uL Eos # (Auto) 0.0 (0.0-0.7) K/uL Baso # (Auto) 0.0 (0.0-0.1) K/uL Nucleated RBC % 0.0 /100WBC Nucleated RBCs # 0 K/uL Lactate 1.4 (0.20-2.00) mmol/L Sodium 137 (136-145) mmol/L Potassium 4.0 (3.5-5.1) mmol/L Chloride 100 (98-107) mmol/L Carbon Dioxide 25.9 (21.0-32.0) mmol/L BUN 23 H (7.0-18.0) mg/dL Creatinine 1.2 H (0.6-1.0) mg/dL Est Cr Clr Drug Dosing 26.41 mL/min Estimated GFR (MDRD) 43.1 ml/min Glucose 96 (74-106) mg/dL Calcium 9.6 (8.5-10.1) mg/dL Urine Color Urine Appearance Urine pH (5.0-8.0) Ur Specific Bowlegs (1.001-1.035) Urine Protein (NEGATIVE) mg/dL Urine Glucose (UA) (NEGATIVE) mg/dL Urine Ketones (NEGATIVE) mg/dL Urine Occult Blood (NEGATIVE) Urine Nitrite (NEGATIVE) Urine Bilirubin (NEGATIVE) Urine Urobilinogen (<2.0) EU/dL Ur Leukocyte Esterase (NEGATIVE) Urine RBC (0-2/HPF) Urine WBC (0-5/HPF) Ur Epithelial Cells (NONE-FEW) Amorphous Sediment (NEGATIVE) Urine Bacteria (NEGATIVE) Urine Mucus (NONE-MOD) SARS-CoV-2 RNA (CORINNE) (NEGATIVE) 02/21/20 02/21/20 02/22/20 Range/Units 15:25 16:04 05:22 WBC 9.10 (4.0-11.0) K/uL RBC 3.91 L (4.30-5.90) M/uL Hgb 12.1 (12.0-16.0) g/dL Hct 37.0 (36.0-46.0) % MCV 94.6 (80.0-98.0) fL MCH 30.9 (27.0-32.0) pg MCHC 32.7 (31.0-37.0) g/dL RDW Std Deviation 43.5 (28.0-62.0) fl RDW Coeff of Miranda 13 (11.0-15.0) % Plt Count 247 (150-400) K/uL MPV 8.90 (7.40-12.00) fL Neut % (Auto) 75.3 (48.0-80.0) % Lymph % (Auto) 11.5 L (16.0-40.0) % Cooper % (Auto) 11.8 (0.0-15.0) % Eos % (Auto) 1.2 (0.0-7.0) % Baso % (Auto) 0.2 (0.0-1.5) % Neut # (Auto) 6.9 H (1.4-5.7) K/uL Lymph # (Auto) 1.1 (0.6-2.4) K/uL Cooper # (Auto) 1.1 H (0.0-0.8) K/uL Eos # (Auto) 0.1 (0.0-0.7) K/uL Baso # (Auto) 0.0 (0.0-0.1) K/uL Nucleated RBC % 0.0 /100WBC Nucleated RBCs # 0 K/uL Lactate (0.20-2.00) mmol/L Sodium (136-145) mmol/L Potassium (3.5-5.1) mmol/L Chloride (98-107) mmol/L Carbon Dioxide (21.0-32.0) mmol/L BUN (7.0-18.0) mg/dL Creatinine (0.6-1.0) mg/dL Est Cr Clr Drug Dosing mL/min Estimated GFR (MDRD) ml/min Glucose (74-106) mg/dL Calcium (8.5-10.1) mg/dL Urine Color YELLOW Urine Appearance CLEAR Urine pH 6.5 (5.0-8.0) Ur Specific Bowlegs 1.015 (1.001-1.035) Urine Protein NEGATIVE (NEGATIVE) mg/dL Urine Glucose (UA) NEGATIVE (NEGATIVE) mg/dL Urine Ketones 15 H (NEGATIVE) mg/dL Urine Occult Blood LARGE H (NEGATIVE) Urine Nitrite NEGATIVE (NEGATIVE) Urine Bilirubin NEGATIVE (NEGATIVE) Urine Urobilinogen 0.2 (<2.0) EU/dL Ur Leukocyte Esterase TRACE H (NEGATIVE) Urine RBC 8-12 (0-2/HPF) Urine WBC 2-3 (0-5/HPF) Ur Epithelial Cells OCCASIONAL (NONE-FEW) Amorphous Sediment FEW (NEGATIVE) Urine Bacteria FEW (NEGATIVE) Urine Mucus FEW (NONE-MOD) SARS-CoV-2 RNA (CORINNE) NEGATIVE (NEGATIVE) 02/22/20 Range/Units 05:22 WBC (4.0-11.0) K/uL RBC (4.30-5.90) M/uL Hgb (12.0-16.0) g/dL Hct (36.0-46.0) % MCV (80.0-98.0) fL MCH (27.0-32.0) pg MCHC (31.0-37.0) g/dL RDW Std Deviation (28.0-62.0) fl RDW Coeff of Miranda (11.0-15.0) % Plt Count (150-400) K/uL MPV (7.40-12.00) fL Neut % (Auto) (48.0-80.0) % Lymph % (Auto) (16.0-40.0) % Cooper % (Auto) (0.0-15.0) % Eos % (Auto) (0.0-7.0) % Baso % (Auto) (0.0-1.5) % Neut # (Auto) (1.4-5.7) K/uL Lymph # (Auto) (0.6-2.4) K/uL Cooper # (Auto) (0.0-0.8) K/uL Eos # (Auto) (0.0-0.7) K/uL Baso # (Auto) (0.0-0.1) K/uL Nucleated RBC % /100WBC Nucleated RBCs # K/uL Lactate (0.20-2.00) mmol/L Sodium 141 (136-145) mmol/L Potassium 3.9 (3.5-5.1) mmol/L Chloride 105 (98-107) mmol/L Carbon Dioxide 28.6 (21.0-32.0) mmol/L BUN 19 H (7.0-18.0) mg/dL Creatinine 0.8 (0.6-1.0) mg/dL Est Cr Clr Drug Dosing 39.61 mL/min Estimated GFR (MDRD) > 60.0 ml/min Glucose 80 (74-106) mg/dL Calcium 8.7 (8.5-10.1) mg/dL Urine Color Urine Appearance Urine pH (5.0-8.0) Ur Specific Bowlegs (1.001-1.035) Urine Protein (NEGATIVE) mg/dL Urine Glucose (UA) (NEGATIVE) mg/dL Urine Ketones (NEGATIVE) mg/dL Urine Occult Blood (NEGATIVE) Urine Nitrite (NEGATIVE) Urine Bilirubin (NEGATIVE) Urine Urobilinogen (<2.0) EU/dL Ur Leukocyte Esterase (NEGATIVE) Urine RBC (0-2/HPF) Urine WBC (0-5/HPF) Ur Epithelial Cells (NONE-FEW) Amorphous Sediment (NEGATIVE) Urine Bacteria (NEGATIVE) Urine Mucus (NONE-MOD) SARS-CoV-2 RNA (CORINNE) (NEGATIVE) Med Orders - Current: Current Medications Ceftriaxone Sodium 1 gm/ (Sodium Chloride) 50 mls @ 100 mls/hr IV Q24H [facility] Levothyroxine Sodium (Synthroid) 50 mcg PO ACBREAKFAST [facility] Morphine Sulfate (Morphine) 2 mg IVPUSH Q2H PRN PRN Reason: Pain (severe 7-10) Stop: 02/22/20 17:37 Ondansetron HCl (Zofran) 4 mg IVPUSH Q4H PRN PRN Reason: Nausea Oxycodone HCl (Oxycodone) 5 mg PO Q4H PRN PRN Reason: Pain (moderate 4-6) Prednisone (Prednisone) 5 mg PO DAILY [facility] Last Admin: 02/22/20 09:22 Dose: 5 mg Documented by: Sodium Chloride (Saline Flush) 2.5 ml FLUSH ASDIRECTED PRN PRN Reason: Keep Vein Open Last Admin: 02/21/20 14:01 Dose: 2.5 ml Documented by: Sodium Chloride (Saline Flush) 10 ml FLUSH ASDIRECTED PRN PRN Reason: Keep Vein Open Last Admin: 02/21/20 14:01 Dose: 10 ml Documented by: Discontinued Medications Fentanyl (Fentanyl) 50 mcg IVPUSH ONETIME ONE Stop: 02/21/20 13:38 Last Admin: 02/21/20 14:10 Dose: 50 mcg Documented by: Lactated Ringer's (Ringers, Lactated) 1,000 mls @ 999 mls/hr IV .BOLUS ONE Stop: 02/21/20 14:37 Last Admin: 02/21/20 14:10 Dose: 999 mls/hr Documented by: Ceftriaxone Sodium/Dextrose 1 (gm/ Premix) 50 mls @ 100 mls/hr IV ONETIME ONE Stop: 02/21/20 16:35 Last Admin: 02/21/20 17:12 Dose: 100 mls/hr Documented by: Levothyroxine Sodium (Levothyroxine) 50 mcg PO ACBREAKFAST [facility] Last Admin: 02/22/20 07:07 Dose: 50 mcg Documented by: Morphine Sulfate (Morphine) 4 mg IVPUSH ONETIME ONE Stop: 02/21/20 14:40 Last Admin: 02/21/20 14:57 Dose: 4 mg Documented by: Ondansetron HCl (Zofran) 4 mg IVPUSH ONETIME ONE Stop: 02/21/20 13:38 Last Admin: 02/21/20 14:10 Dose: 4 mg Documented by: Ondansetron HCl (Zofran) 4 mg IVPUSH ONETIME ONE Stop: 02/21/20 15:59 Last Admin: 02/21/20 17:11 Dose: 4 mg Documented by:
--- NOTE | 2020-02-22 12:25 | CR ---
INDICATION: Kidney stones. COMPARISON: CT abdomen and pelvis same date. Technique: KUB. Findings: A 5 mm calcification identified in the course of the left ureter at the level of L5 corresponding to the stone in the left ureter on the CT from same day. Calcifications identified in the lower pole calices left kidney. Phleboliths in the pelvis. Copious amounts of retained stool identified in the colon. IMPRESSION: 1. 5 mm calcification at the level of L5 in the course of the left ureter corresponding to the left ureteral stone. 2. Calculi identified in the lower pole calices left kidney. Dictated by Allegra Obrien MD @ Feb 22 2020 12:20PM Signed by Dr. Allegra Obrien @ Feb 22 2020 12:23PM
[2020-02-22 14:07] VITALS: BP 128/60; PULSE 80
--- NOTE | 2020-02-22 16:04 | CONS ---
DATE OF CONSULTATION: 02/22/2020 DATE OF : 1940 PRIMARY CARE PHYSICIAN: Christian Cruz M.D. HISTORY OF PRESENT ILLNESS: Sabine Espinoza is 79 years old. She was admitted to the hospital for pain control, having a 4 mm partially obstructive left mid ureteral stone. She has had urinary stones in the past. She had ESWL in the past that worked for her. PAST MEDICAL HISTORY: She takes Nexium and 5 mg cortisone daily for her right shoulder. She has done that for the last 3 weeks. No history of diabetes. No hypertension. No heart disease. LABORATORY DATA: Her UA showed 10 to 12 white blood cells per high-powered field. Urine culture was not done. However, she is stable. Nitrite was negative. I suspect that was not a UTI, that could very well be coming from the multiple stones that she has. Her white blood count was 12,000. Her serum creatinine today was 0.8, down from 1.2 yesterday which probably indicates that the possible obstruction is somewhat relieved. Her white blood count yesterday was 12, today it was 9. PHYSICAL EXAMINATION: GENERAL: She is alert and oriented. She appears reasonably comfortable. MEDICAL DECISION MAKING: She can only take plain Tylenol for pain at home. She tried oxycodone, and that, she said, threw her in a loop. I reviewed her CT scan from the and the one that was done yesterday. The stone has definitely moved down the ureter on the left. It is now in the mid ureter. It was at the [facility] the day before. PLAN: She can be sent home today. She will have a KUB today, and she will have ESWL with possibly having a stent put in, and all of that was explained to her, the day after tomorrow. SAAD / LEIF /[id number]
[2020-02-22] MEDS ORDERED: cefTRIAXone 1 GM in Sodium Chloride 0.9% 50 ML IV SCH (16:45)
[2020-02-23] MEDS ORDERED: Levothyroxine 50 MCG Tab PO SCH (07:30)
== END 2020-02-22 01:30 | disposition home or self-care (01) ==
LOC: MW.ED 13:27 → MW.MS 15:58
PROVIDERS: ADMIT Internal Medicine; ATTEND Internal Medicine
DX: N20.1 Calculus of ureter (principal); E03.9 Hypothyroidism, unspecified; D86.9 Sarcoidosis, unspecified; K21.9 Gastro-esophageal reflux disease without esophagitis; E78.00 Pure hypercholesterolemia, unspecified; Z79.899 Other long term (current) drug therapy; Z79.890 Hormone replacement therapy; Z88.8 Allergy status to other drugs, medicaments and biological substances; Z88.1 Allergy status to other antibiotic agents; Z91.040 Latex allergy status; Z88.5 Allergy status to narcotic agent; Z91.048 Other nonmedicinal substance allergy status; Z91.013 Allergy to seafood; Z20.828 Contact with and (suspected) exposure to other viral communicable diseases
CPT/HCPCS: 36415; 74018; 74176; 80048; 81001; 83605; 85025; 87086; 96365; 96375; 96376; 99285; A9270; G0378; J0696; J2270; J2405; J3010; J7120; U0002; 99284

== ENCOUNTER 2020-02-23 10:33 | Emergency (ER) | payer MEDICARE, BC ==
[2020-02-23] MEDS ORDERED: Morphine 4 MG/ML Syringe IVPUSH ONE (10:54)
[2020-02-23] MEDS ORDERED: Sodium Chloride 0.9% 1,000 ML IV ONE (10:57)
--- NOTE | 2020-02-23 11:15 | EDM.PDOC ---
ED HPI GENERAL MEDICAL PROBLEM - General Chief Complaint: Genitourinary Problem Stated Complaint: KIDNEY STONES Time Seen by Provider: 02/23/20 10:35 Source of Information: Reports: Patient History Limitations: Reports: No Limitations - History of Present Illness INITIAL COMMENTS - FREE TEXT/NARRATIVE: HISTORY AND PHYSICAL: History of present illness: Patient is an 79-year-old female, with known left-sided kidney stone, who presents to the ED today with concern of worsening pain due to her kidney stone. Patient was admitted to the hospital 2 days ago and was discharged yesterday. During her hospital stay, she had a consult with the urologist and has a scheduled lithotripsy for tomorrow morning. Patient states that she does not have any pain medication other than Tylenol and she was doing well until at about 2 in the morning had an increase in her left-sided flank pain. Patient states she has not had any vomiting and her flank pain is typical as what it has been the entire time she was diagnosed with a kidney stone. Patient states she called Dr. Oropeza's office and was instructed to come to the emergency room for further pain control. Patient denies any new or changed symptoms. Patient has a history of prior kidney stones, hypothyroidism, and sarcoidosis. Patient has a 4mm stone of the left ureter. Patient denies fever, chills, chest pain, shortness of breath, or cough. Denies headache, neck stiff ness, change in vision, syncope, or near syncope. Denies nausea, vomiting, diarrhea, constipation, or dysuria. Has not noted any blood in urine or stool. Patient has been eating and drinking appropriately. Review of systems: As per history of present illness and below otherwise all systems reviewed and negative. Past medical history: As per history of present illness and as reviewed below otherwise noncontributory. Surgical history: As per history of present illness and as reviewed below otherwise noncontributory. Social history: See social history for further information Family history: As per history of present illness and as reviewed below otherwise noncontributory. Physical exam: General: Patient is alert, oriented, and in no acute distress. Patient laying on exam table, holding left flank area, appearing uncomfortable. Vital stable and reviewed by me. HEENT: Atraumatic, normocephalic, pupils equal and reactive bilaterally, negative for conjunctival pallor or scleral icterus, mucous membranes moist, TMs normal bilaterally, throat clear, neck supple, nontender, trachea midline. No drooling or trismus noted. No meningeal signs. No hot potato voice noted. Lungs: Clear to auscultation, breath sounds equal bilaterally, chest nontender. Heart: S1S2, regular rate and rhythm without overt murmur Abdomen: Soft, nondistended, nontender. Negative for masses or hepatosplenomegaly. Positive for costovertebral tenderness or the left. Pelvis: Stable nontender. Genitourinary: Deferred. Rectal: Deferred. Skin: Intact, warm, dry. No lesions or rashes noted. Extremities: Atraumatic, negative for cords or calf pain. Neurovascular unremarkable. Neuro: Awake, alert, oriented. Cranial nerves II through XII unremarkable. Cerebellum unremarkable. Motor and sensory unremarkable throughout. Exam nonfocal. Notes: Patient is much more comfortable following therapeusis and requesting discharge from the ED. I did call and speak to Dr. Oropeza, urology on-call, and thoroughly discussed patient's case. He does not feel that patient needs to be on antibiotics at this time and to follow-up for tomorrow for the lithotripsy as scheduled with him. Admission for observation and further pain control was offered to patient but she declines at this time. Signs and symptoms that would prompt further return to the ED thoroughly discussed with patient. Discussed importance for follow-up with Dr. Oropeza tomorrow as scheduled. Voices understanding and is agreeable to plan of care. Denies any further questions or concerns at this time. Diagnostics: CBC, BMP, UA Therapeutics: NS, Morphine Prescription: None Impression: Encounter for pain management Ureterolithiasis, left Plan: 1. Use your at home medication as prescribed to you as discussed. You can also use Tylenol as directed for pain and discomfort. 2. Follow-up with Dr. Stubbs, the urologist, tomorrow as scheduled and as discussed. Return to the ED as needed and as discussed. Definitive disposition and diagnosis as appropriate pending reevaluation and review of above. Left Lower abdomen Pain Score (Numeric/FACES): 10 - Related Data Allergies Allergy/AdvReac Type Severity Reaction Status Date / Time diclofenac sodium Allergy Intermediate Nausea and Verified 02/23/20 10:46 [From Voltaren] Vomiting adhesive Allergy Rash Verified 02/23/20 10:46 aspirin Allergy Hives Verified 02/23/20 10:46 baclofen Allergy Cannot Verified 02/23/20 10:46 Remember calcium Allergy Nausea and Verified 02/23/20 10:46 Vomiting calcium chloride Allergy Hives Verified 02/23/20 10:46 cephalexin [From Keflex] Allergy Headache Verified 02/23/20 10:46 codeine Allergy Headache Verified 02/23/20 10:46 colistimethate sodium Allergy Rash Verified 02/23/20 10:46 [From Coly-Mycin M] erythromycin base Allergy Hives Verified 02/23/20 10:46 [Erythromycin Base] fluticasone [From Flonase] Allergy Itching Verified 02/23/20 10:46 gabapentin Allergy Chest Pain Verified 02/23/20 10:46 latex Allergy Hives Verified 02/23/20 10:46 levofloxacin Allergy Cannot Verified 02/23/20 10:46 Remember meloxicam Allergy Nausea and Verified 02/23/20 10:46 Vomiting naproxen [From Naprosyn] Allergy Nausea and Verified 02/23/20 10:46 Vomiting NSAIDS (Non-Steroidal Allergy Rash Verified 02/23/20 10:46 Anti-Inflamma nystatin Allergy Itching Verified 02/23/20 10:46 ondansetron [From Zofran] Allergy Headache Verified 02/23/20 10:46 oxycodone Allergy Headache Verified 02/23/20 10:46 propoxyphene [From Darvon] Allergy Rash Verified 02/23/20 10:46 propoxyphene HCl Allergy Nausea and Verified 02/23/20 10:46 [From Darvon] Vomiting salicylates Allergy Cannot Verified 02/23/20 10:46 Remember shellfish derived Allergy Rash Verified 02/23/20 10:46 sulindac Allergy Nausea and Verified 02/23/20 10:46 Vomiting tamsulosin Allergy Rash Verified 02/23/20 10:46 tramadol Allergy Nausea and Verified 02/23/20 10:46 Vomiting tramadol HCl [From Ultram] Allergy Nausea and Verified 02/23/20 10:46 Vomiting umeclidinium Allergy Nausea Verified 02/23/20 10:46 [From Anoro Ellipta] valacyclovir [From Valtrex] Allergy Rash Verified 02/23/20 10:46 vilanterol Allergy Nausea Verified 02/23/20 10:46 [From Anoro Ellipta] naproxen Allergy Rash Uncoded 02/23/20 10:46 propoxyphene Allergy Nausea and Uncoded 02/23/20 10:46 Vomiting Home Meds: Home Meds Levothyroxine Sodium [Synthroid] 50 mcg PO ASDIRECTED 08/31/13 [History] Acyclovir 400 mg PO TID PRN 02/08/18 [History] Esomeprazole Magnesium [Nexium] 40 mg PO DAILY 10/14/18 [History] Levothyroxine Sodium [Euthyrox] 25 mcg PO ASDIRECTED 10/14/18 [History] Multivitamin/Iron/Folic Acid [Centrum Adults Tablet] 1 tab PO DAILY 10/14/18 [History] predniSONE 10 mg PO BID 10/14/18 [History] Acetaminophen [Acetaminophen Extra Strength] 500 - 1,000 mg PO Q6H PRN #30 tablet 02/20/20 [Rx] NIFEdipine [Nifedipine ER] 30 mg PO DAILY 02/23/20 [History] Triazolam 0.125 mg PO BEDTIME 02/23/20 [History] Past Medical History HEENT History: Reports: Cataract, Other (See Below) Other HEENT History: had cataract surgery on 10/13/18, wears reading glasses Cardiovascular History: Reports: Arrhythmia Other Cardiovascular History: has been told she has an arrythmia Respiratory History: Reports: Other (See Below) Other Respiratory History: has Sarcoid lungs Gastrointestinal History: Reports: GERD Genitourinary History: Reports: Renal Calculus 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 Surgery was cancelled and done the next day. 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 Immunologic History: Reports: Immunosuppression Dermatologic History: Reports: Other (See Below) Other Dermatologic History: hx of cold sores - Infectious Disease History Infectious Disease History: Reports: Mumps - Past Surgical History Head Surgeries/Procedures: Reports: None HEENT Surgical History: Reports: Cataract Surgery, Tonsillectomy Cardiovascular Surgical History: Reports: Varicose Other Cardiovascular Surgeries/Procedures: varicose vein ligation because of blood clot in vein GI Surgical History: Reports: Appendectomy, Cholecystectomy Female Surgical History: Reports: Breast Biopsy, Hysterectomy, Lithotripsy/ESWL, Salpingo-Oophorectomy, Tubal Ligation Musculoskeletal Surgical History: Reports: Other (See Below) Other Musculoskeletal Surgeries/Procedures:: bunionectomy right foot, closed reduction right wrist Oncologic Surgical History: Reports: Lumpectomy Social & Family History - Family History Family Medical History: Noncontributory - Tobacco Use Tobacco Use Status *Q: Never Tobacco User - Caffeine Use Caffeine Use: Reports: Coffee - Recreational Drug Use Recreational Drug Use: No ED ROS GENERAL - Review of Systems Review Of Systems: Comprehensive ROS is negative, except as noted in HPI. ED EXAM, GENERAL - Physical Exam Exam: See Below (see dictation) Course - Vital Signs Last Recorded V/S: Last Vital Signs Temp 97.4 F 02/23/20 10:42 Pulse 76 02/23/20 10:42 Resp 16 02/23/20 10:42 BP 128/69 02/23/20 10:42 Pulse Ox 94 L 02/23/20 10:42 - Orders/Labs/Meds Orders: Active Orders 24 hr Category Date Time Status CULTURE URINE [RM] Stat Lab 02/23/20 12:20 Received Labs: Laboratory Tests 02/23/20 02/23/20 02/23/20 Range/Units 10:59 10:59 12:20 WBC 8.76 (4.0-11.0) K/uL RBC 4.20 L (4.30-5.90) M/uL Hgb 13.0 (12.0-16.0) g/dL Hct 39.0 (36.0-46.0) % MCV 92.9 (80.0-98.0) fL MCH 31.0 (27.0-32.0) pg MCHC 33.3 (31.0-37.0) g/dL RDW Std Deviation 42.4 (28.0-62.0) fl RDW Coeff of Miranda 13 (11.0-15.0) % Plt Count 245 (150-400) K/uL MPV 8.70 (7.40-12.00) fL Neut % (Auto) 73.4 (48.0-80.0) % Lymph % (Auto) 12.0 L (16.0-40.0) % [place] % (Auto) 12.2 (0.0-15.0) % Eos % (Auto) 2.1 (0.0-7.0) % Baso % (Auto) 0.3 (0.0-1.5) % Neut # (Auto) 6.4 H (1.4-5.7) K/uL Lymph # (Auto) 1.1 (0.6-2.4) K/uL [place] # (Auto) 1.1 H (0.0-0.8) K/uL Eos # (Auto) 0.2 (0.0-0.7) K/uL Baso # (Auto) 0.0 (0.0-0.1) K/uL Nucleated RBC % 0.0 /100WBC Nucleated RBCs # 0 K/uL Sodium 141 (136-145) mmol/L Potassium 3.6 (3.5-5.1) mmol/L Chloride 101 (98-107) mmol/L Carbon Dioxide 27.7 (21.0-32.0) mmol/L BUN 19 H (7.0-18.0) mg/dL Creatinine 0.7 (0.6-1.0) mg/dL Est Cr Clr Drug Dosing 45.27 mL/min Estimated GFR (MDRD) > 60.0 ml/min Glucose 92 (74-106) mg/dL Calcium 8.7 (8.5-10.1) mg/dL Urine Color YELLOW Urine Appearance SLT CLOUDY Urine pH 7.0 (5.0-8.0) Ur Specific [place] 1.020 (1.001-1.035) Urine Protein 30 H (NEGATIVE) mg/dL Urine Glucose (UA) NEGATIVE (NEGATIVE) mg/dL Urine Ketones TRACE H (NEGATIVE) mg/dL Urine Occult Blood LARGE H (NEGATIVE) Urine Nitrite NEGATIVE (NEGATIVE) Urine Bilirubin SMALL H (NEGATIVE) Urine Ictotest NEGATIVE Urine Urobilinogen 2.0 H (<2.0) EU/dL Ur Leukocyte Esterase TRACE H (NEGATIVE) Urine RBC TOO NUMEROUS TO CT H (0-2/HPF) Urine WBC 3-5 (0-5/HPF) Ur Epithelial Cells RARE (NONE-FEW) Urine Bacteria 1+ H (NEGATIVE) Meds: Medications Discontinued Medications Generic Name Dose Route Start Last Admin Trade Name Freq PRN Reason Stop Dose Admin Sodium Chloride 1,000 mls @ 999 mls/hr 02/23/20 10:57 02/23/20 11:07 Normal Saline IV 02/23/20 11:57 999 mls/hr STAT ONE Administration Morphine Sulfate 4 mg 02/23/20 10:54 02/23/20 11:07 Morphine IVPUSH 02/23/20 10:55 4 mg ONETIME ONE Administration Departure - Departure Time of Disposition: 13:15 Disposition: Home, Self-Care 01 Clinical Impression: Encounter for pain management, Ureterolithiasis - Discharge Information Referrals: Christian Cruz MD [Primary Care Provider] - Forms: ED Department Discharge Additional Instructions: The following information is given to patients seen in the emergency department who are being discharged to home. This information is to outline your options for follow-up care. We provide all patients seen in our emergency department with a follow-up referral. The need for follow-up, as well as the timing and circumstances, are variable depending upon the specifics of your emergency department visit. If you don't have a primary care physician on staff, we will provide you with a referral. We always advise you to contact your personal physician following an emergency department visit to inform them of the circumstance of the visit and for follow-up with them and/or the need for any referrals to a consulting specialist. The emergency department will also refer you to a specialist when appropriate. This referral assures that you have the opportunity for follow-up care with a specialist. All of these measure are taken in an effort to provide you with optimal care, which includes your follow-up. Under all circumstances we always encourage you to contact your private physician who remains a resource for coordinating your care. When calling for follow-up care, please make the office aware that this follow-up is from your r ent emergency room visit. If for any reason you are refused follow-up, please contact the [facility] Emergency Department at and asked to speak to the emergency department charge nurse. [facility] Primary Care [address] [place] [id number] [place] [address] [facility] - Urology, Dr. Stubbs [address] [place] [address] 1. Use your at home medication as prescribed to you as discussed. You can also use Tylenol as directed for pain and discomfort. 2. Follow-up with Dr. Stubbs, the urologist, tomorrow as scheduled and as discussed. Return to the ED as needed and as discussed. Sepsis Event Note (ED) - Evaluation Sepsis Screening Result: No Definite Risk - Focused Exam Vital Signs: Vital Signs Temp Pulse Resp BP Pulse Ox 02/23/20 10:42 97.4 F 76 16 128/69 94 L - My Orders Last 24 Hours: My Active Orders 02/23/20 12:20 CULTURE URINE [RM] Stat - Assessment/Plan Last 24 Hours: My Active Orders 02/23/20 12:20 CULTURE URINE [RM] Stat
[2020-02-23 11:26] LABS: BLOOD UREA NITROGEN,BUN 19 mg/dL (7.0-18.0); CARBON DIOXIDE,CO2 27.7 mmol/L (21.0-32.0); CHLORIDE,CL 101 mmol/L (98-107); GLUCOSE RANDOM 92 mg/dL (74-106); POTASSIUM,K 3.6 mmol/L (3.5-5.1); SODIUM,NA 141 mmol/L (136-145)
[2020-02-23 15:40] VITALS: BP 128/54; PULSE 66
== END 2020-02-23 13:32 | disposition home or self-care (01) ==
LOC: MW.ED 10:33
DX: N20.1 Calculus of ureter (principal); K21.9 Gastro-esophageal reflux disease without esophagitis; E03.9 Hypothyroidism, unspecified; Z88.8 Allergy status to other drugs, medicaments and biological substances; Z91.048 Other nonmedicinal substance allergy status; Z88.5 Allergy status to narcotic agent; Z88.1 Allergy status to other antibiotic agents; Z91.040 Latex allergy status; Z88.6 Allergy status to analgesic agent; Z91.013 Allergy to seafood; Z79.899 Other long term (current) drug therapy
CPT/HCPCS: 80048; 81001; 85025; 87086; 96374; 99284; J2270; J7030; 99283

== ENCOUNTER 2020-02-24 06:42 | Day surgery (SDC) | payer MEDICARE, BC ==
[2020-02-24] MEDS: fentaNYL 100 MCG/2 ML SDV IVPUSH PRN ×2 (07:10→07:38)
[2020-02-24] MEDS ORDERED: fentaNYL 100 MCG/2 ML SDV ONE ×2 (07:10→07:26)
[2020-02-24] MEDS ORDERED: Lidocaine 2% 5 ML SDV ONE (07:25)
[2020-02-24] MEDS ORDERED: Propofol 200 MG/20 ML SDV ONE ×2 (07:25→07:34)
[2020-02-24] MEDS ORDERED: HYDROmorphone 2 MG/ML Syringe ONE (07:27)
[2020-02-24] MEDS ORDERED: Sodium Chloride 0.9% 20 ML ONE (07:29)
--- NOTE | 2020-02-24 07:36 | PCM.PREANE ---
Preanesthetic Assessment - Anesthesia/Transfusion/Family Hx Anesthesia History: Prior Anesthesia Reaction Other Type of Anesthesia Reaction Comment: her "heart stopped" during appendectomy- 50 years ago, also during Hysterec Transfusion History: No Prior Transfusion(s) Intubation History: Unknown - Review of Systems General: No Symptoms Pulmonary: No Symptoms Cardiovascular: No Symptoms Gastrointestinal: Abdominal Pain (kidney stone pain) Neurological: No Symptoms Other: Reports: None - Physical Assessment Height: 4 ft 11.5 in Weight: 52.617 kg ASA Class: 3 Mental Status: Alert & Oriented x3 Airway Class: Mallampati = 2 Dentition: Reports: Normal Dentition Thyro-Mental Finger Breadths: 3 Mouth Opening Finger Breadths: 2 ROM/Head Extension: Limited/Partial Lungs: Clear to Auscultation, Normal Respiratory Effort Cardiovascular: Regular Rate, Regular Rhythm - Allergies Allergies/Adverse Reactions: Allergies Allergy/AdvReac Type Severity Reaction Status Date / Time diclofenac sodium Allergy Intermediate Nausea and Verified 02/23/20 10:46 [From Voltaren] Vomiting adhesive Allergy Rash Verified 02/23/20 10:46 aspirin Allergy Hives Verified 02/23/20 10:46 baclofen Allergy Cannot Verified 02/23/20 10:46 Remember calcium Allergy Nausea and Verified 02/23/20 10:46 Vomiting calcium chloride Allergy Hives Verified 02/23/20 10:46 cephalexin [From Keflex] Allergy Headache Verified 02/23/20 10:46 codeine Allergy Headache Verified 02/23/20 10:46 colistimethate sodium Allergy Rash Verified 02/23/20 10:46 [From Coly-Mycin M] erythromycin base Allergy Hives Verified 02/23/20 10:46 [Erythromycin Base] fluticasone [From Flonase] Allergy Itching Verified 02/23/20 10:46 gabapentin Allergy Chest Pain Verified 02/23/20 10:46 latex Allergy Hives Verified 02/23/20 10:46 levofloxacin Allergy Cannot Verified 02/23/20 10:46 Remember meloxicam Allergy Nausea and Verified 02/23/20 10:46 Vomiting naproxen [From Naprosyn] Allergy Nausea and Verified 02/23/20 10:46 Vomiting NSAIDS (Non-Steroidal Allergy Rash Verified 02/23/20 10:46 Anti-Inflamma nystatin Allergy Itching Verified 02/23/20 10:46 ondansetron [From Zofran] Allergy Headache Verified 02/23/20 10:46 oxycodone Allergy Headache Verified 02/23/20 10:46 propoxyphene [From Darvon] Allergy Rash Verified 02/23/20 10:46 propoxyphene HCl Allergy Nausea and Verified 02/23/20 10:46 [From Darvon] Vomiting salicylates Allergy Cannot Verified 02/23/20 10:46 Remember shellfish derived Allergy Rash Verified 02/23/20 10:46 sulindac Allergy Nausea and Verified 02/23/20 10:46 Vomiting tamsulosin Allergy Rash Verified 02/23/20 10:46 tramadol Allergy Nausea and Verified 02/23/20 10:46 Vomiting tramadol HCl [From Ultram] Allergy Nausea and Verified 02/23/20 10:46 Vomiting umeclidinium Allergy Nausea Verified 02/23/20 10:46 [From Anoro Ellipta] valacyclovir [From Valtrex] Allergy Rash Verified 02/23/20 10:46 vilanterol Allergy Nausea Verified 02/23/20 10:46 [From Anoro Ellipta] naproxen Allergy Rash Uncoded 02/23/20 10:46 propoxyphene Allergy Nausea and Uncoded 02/23/20 10:46 Vomiting - Blood Blood Available: No - Anesthesia Plan Pre-Op Medication Ordered: None - Acknowledgements Anesthesia Type Planned: General Anesthesia Pt an Appropriate Candidate for the Planned Anesthesia: Yes Alternatives and Risks of Anesthesia Discussed w Pt/Guardian: Yes Pt/Guardian Understands and Agrees with Anesthesia Plan: Yes PreAnesthesia Questionnaire HEENT History: Reports: Cataract, Other (See Below) Other HEENT History: had cataract surgery on 10/13/18, wears reading glasses Cardiovascular History: Reports: Arrhythmia Other Cardiovascular History: has been told she has an arrythmia Respiratory History: Reports: Other (See Below) Other Respiratory History: has Sarcoid lungs Gastrointestinal History: Reports: GERD Genitourinary History: Reports: Renal Calculus 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 Surgery was cancelled and done the next day. 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 Immunologic History: Reports: Immunosuppression Dermatologic History: Reports: Other (See Below) Other Dermatologic History: hx of cold sores - Infectious Disease History Infectious Disease History: Reports: Mumps - Past Surgical History Head Surgeries/Procedures: Reports: None HEENT Surgical History: Reports: Cataract Surgery, Tonsillectomy Cardiovascular Surgical History: Reports: Varicose Other Cardiovascular Surgeries/Procedures: varicose vein ligation because of blood clot in vein GI Surgical History: Reports: Appendectomy, Cholecystectomy Female Surgical History: Reports: Breast Biopsy, Hysterectomy, Lithotripsy/ESWL, Salpingo-Oophorectomy, Tubal Ligation Neurological Surgical History: Reports: C-Spine Musculoskeletal Surgical History: Reports: Other (See Below) Other Musculoskeletal Surgeries/Procedures:: bunionectomy right foot, closed reduction right wrist Oncologic Surgical History: Reports: Lumpectomy - SUBSTANCE USE Tobacco Use Status *Q: Never Tobacco User Recreational Drug Use History: No - HOME MEDS Home Medications: Home Meds Levothyroxine Sodium [Synthroid] 50 mcg PO ASDIRECTED 08/31/13 [History] Acyclovir 400 mg PO TID PRN 02/08/18 [History] Esomeprazole Magnesium [Nexium] 40 mg PO DAILY 10/14/18 [History] Levothyroxine Sodium [Euthyrox] 25 mcg PO ASDIRECTED 10/14/18 [History] Multivitamin/Iron/Folic Acid [Centrum Adults Tablet] 1 tab PO DAILY 10/14/18 [History] predniSONE 10 mg PO BID 10/14/18 [History] Acetaminophen [Acetaminophen Extra Strength] 500 - 1,000 mg PO Q6H PRN #30 tablet 02/20/20 [Rx] NIFEdipine [Nifedipine ER] 30 mg PO DAILY 02/23/20 [History] Triazolam 0.125 mg PO BEDTIME 02/23/20 [History] - CURRENT (IN HOUSE) MEDS Current Meds: Current Medications Discontinued Medications Fentanyl (Sublimaze) Confirm Administered Dose 100 mcg .ROUTE .STK-MED ONE Stop: 02/24/20 07:11 Fentanyl (Sublimaze) Confirm Administered Dose 100 mcg .ROUTE .STK-MED ONE Stop: 02/24/20 07:27 Hydromorphone HCl (Dilaudid) Confirm Administered Dose 2 mg .ROUTE .STK-MED ONE Stop: 02/24/20 07:28 Acetaminophen (Ofirmev) Confirm Administered Dose 100 mls @ as directed .ROUTE .STK-MED ONE Stop: 02/24/20 07:29 Sodium Chloride (Normal Saline) Confirm Administered Dose 20 mls @ as directed .ROUTE .STK-MED ONE Stop: 02/24/20 07:30 Lidocaine (Xylocaine-Mpf 2%) Confirm Administered Dose 5 ml .ROUTE .STK-MED ONE Stop: 02/24/20 07:26 Propofol (Diprivan 20 Ml) Confirm Administered Dose 200 mg .ROUTE .STK-MED ONE Stop: 02/24/20 07:26
[2020-02-24] MEDS ORDERED: Lactated Ringers 1,000 ML IV SCH (08:00)
[2020-02-24] MEDS ORDERED: Sugammadex Sodium 200 MG/2 ML VIAL ONE (08:11)
[2020-02-24] MEDS ORDERED: Rocuronium Bromide 50 MG/5 ML Syringe ONE (08:14)
[2020-02-24] MEDS ORDERED: Glycopyrrolate 0.2 MG/ML SDV ONE (09:05)
[2020-02-24] MEDS ORDERED: Iopamidol 408 MG/ML 20 ML SDV ONE ×2 (09:14→09:15)
[2020-02-24] MEDS ORDERED: ACYCLOVIR 400 MG PO PRN (10:06)
[2020-02-24] MEDS ORDERED: Levothyroxine 50 MCG Tab PO SCH (10:15)
--- NOTE | 2020-02-24 10:16 | PCM.POSTAN ---
POST ANESTHESIA ASSESSMENT - MENTAL STATUS Mental Status: Alert, Oriented - VITAL SIGNS Vital Signs: Last Vital Signs Temp 36.3 C 02/24/20 09:42 Pulse 63 02/24/20 10:03 Resp 14 02/24/20 10:03 BP 118/51 L 02/24/20 10:03 Pulse Ox 95 02/24/20 10:03 - RESPIRATORY Respiratory Status: Respiratory Rate WNL, Airway Patent, O2 Saturation Stable - CARDIOVASCULAR CV Status: Pulse Rate WNL, Blood Pressure Stable - GASTROINTESTINAL GI Status: No Symptoms - PAIN Pain Score: 0 - POST OP HYDRATION Hydration Status: Adequate & Stable - OBSERVATIONS Free Text/Narrative:: No anesthesia problems
--- NOTE | 2020-02-24 12:47 | OR ---
SURGEON: Gio Gruber M.D. DATE OF PROCEDURE: 02/24/2020 PREOPERATIVE DIAGNOSIS: Left ureteral stone and two left renal stones. The ureteral stone is about 4 mm. The renal stones, one is 5 and one is 3.5 mm each. DESCRIPTION OF PROCEDURE: The patient was given general anesthesia. She was on the lithotripsy table. The position of the patient was adjusted, so the ureteral stone could be treated. However, it was not possible to visualize on the fluoro the ureteral stone. So we went up to the kidney and treated the kidney stones with approximately 1700 shocks. Shadows of the two stones disappeared. At this point, I decided to put a double-J stent in. However, as the cystoscopy was done and the guidewire was advanced in the left ureter, there was resistance about an inch and a half proximal to the left ureteral orifice, and I suspected that was where the stone was and that was confirmed with fluoroscopy. The lower ureter was then dilated using the UroMax II balloon dilator to approximately 15- Greek. The rigid ureteroscope was then advanced in the left ureter and the stone was visualized and removed. With that done, a 6-Greek 26 cm double-J stent was placed. Position was confirmed with fluoroscopy. The bladder was emptied, and the patient was moved to recovery room in good condition. SAAD / LEIF /[id number]
--- NOTE | 2020-02-24 12:55 | PCM48HPAN ---
Post Anesthesia Note - EVALUATION WITHIN 48HRS OF ANESTHETIC Vital Signs in Normal Range: Yes Patient Participated in Evaluation: Yes Respiratory Function Stable: Yes Airway Patent: Yes Cardiovascular Function Stable: Yes Hydration Status Stable: Yes Pain Control Satisfactory: Yes Nausea and Vomiting Control Satisfactory: Yes Mental Status Recovered: Yes Vital Signs: Last Vital Signs Temp 36.3 C 02/24/20 09:42 Pulse 61 02/24/20 10:25 Resp 15 02/24/20 10:25 BP 117/59 L 02/24/20 10:25 Pulse Ox 95 02/24/20 10:25 - COMMENTS/OBSERVATIONS Free Text/Narrative:: No anesthesia problems
[2020-02-24 14:15] VITALS: BP 123/57; PULSE 62
[2020-02-24] MEDS ORDERED: predniSONE 10 MG Tab PO SCH (21:00)
[2020-02-24] MEDS ORDERED: TRIAZOLAM 0.125 MG PO SCH (21:00)
[2020-02-25] MEDS ORDERED: Non-Formulary Medication 1 Each (Esomeprazole Magnesium [Nexium] 40 MG) PO SCH (09:00)
[2020-02-25] MEDS ORDERED: FOLIC ACID PO SCH (09:00)
[2020-02-25] MEDS ORDERED: NIFEdipine 30 MG Tab.ER PO SCH (09:00)
[2020-02-25] MEDS ORDERED: [UNRECOGNIZED DRUG - OTHER] PO SCH (09:00)
[2020-02-25] MEDS ORDERED: IRON PO SCH (09:00)
[2020-02-25] MEDS ORDERED: MULTIVITAMIN PO SCH (09:00)
[2020-02-25] MEDS ORDERED: Levothyroxine 25 MCG Tab PO SCH (10:34)
== END 2020-02-24 13:15 | disposition home or self-care (01) ==
LOC: MW.SDS 06:42
PROVIDERS: ATTEND Urology
DX: N20.2 Calculus of kidney with calculus of ureter (principal); E03.9 Hypothyroidism, unspecified; G89.29 Other chronic pain; F41.9 Anxiety disorder, unspecified; Z79.899 Other long term (current) drug therapy; Z88.8 Allergy status to other drugs, medicaments and biological substances; Z88.1 Allergy status to other antibiotic agents; Z88.5 Allergy status to narcotic agent; Z91.048 Other nonmedicinal substance allergy status; Z91.040 Latex allergy status; Z91.013 Allergy to seafood; K21.9 Gastro-esophageal reflux disease without esophagitis; Z79.890 Hormone replacement therapy
CPT/HCPCS: 50590; 52332; 88300; C1769; C2617; J0131; J1170; J2001; J2704; J3010; J3490; J7120; Q9966

== ENCOUNTER 2020-03-13 14:31 | Emergency (ER) | payer MEDICARE, BC ==
[2020-03-13] MEDS ORDERED: LORazepam 0.5 MG Tab PO ONE (15:06)
--- NOTE | 2020-03-13 15:06 | EDM.PDOC ---
ED HPI GENERAL MEDICAL PROBLEM - General Chief Complaint: Respiratory Problem Stated Complaint: SHORTNESS OF BREATHE Time Seen by Provider: 03/13/20 14:36 Source of Information: Reports: Patient History Limitations: Reports: No Limitations - History of Present Illness INITIAL COMMENTS - FREE TEXT/NARRATIVE: HISTORY AND PHYSICAL: History of present illness: Patient is an 79-year-old female who presents to the emergency room with complaints of headache and shortness of breath. She started to develop a generalized headache on Friday which she describes as a tight band pressure around her scalp. She has been trying to take Tylenol without any improvement. She went to the primary care clinic today and they recommended she come to the emergency room for a CT scan of her head. She has no weakness, slurred speech, neurological deficits or strokelike symptoms. She states she did have lithotripsy done approximately 1 week ago and was told she would likely get a headache for a few days to several weeks post procedure. Secondarily she says she has been short of breath over the past 1 week. Patient denies any fever, chills, change in vision, syncope or near syncope. Denies any chest pain, back pain, neck pain/stiffness or cough. Denies any abdominal pain, vomiting, diarrhea, constipation or dysuria. Has not noted any blood in urine or stool. Patient has been eating and drinking appropriately. Review of systems: As per history of present illness and below otherwise all systems reviewed and negative. Past medical history: As per history of present illness and as reviewed below otherwise noncontributory. Surgical history: As per history of present illness and as reviewed below otherwise noncontributory. Social history: See social history for further information Family history: As per history of present illness and as reviewed below otherwise noncontributory. Physical exam: General: Well developed and well nourished 79 year old female. Alert and orientated x 3. Anxious but nontoxic in appearance and in no acute distress. Vital signs are stable and have been reviewed by me. Nursing notes were reviewed. HEENT: Atraumatic, normocephalic, pupils equal and reactive bilaterally, negative for conjunctival pallor or scleral icterus, mucous membranes moist, TMs normal bilaterally, throat clear, neck supple, nontender, trachea midline. No drooling or trismus noted. No meningeal signs. No hot potato voice noted. Lungs: Clear to auscultation, breath sounds equal bilaterally, chest nontender. Normal work of breathing, no accessory muscles used. Heart: S1S2, regular rate and rhythm without overt murmur Abdomen: Soft, nondistended, nontender. Negative for masses or hepatosplenomegaly. Negative for costovertebral tenderness. Skin: Intact, warm, dry. No lesions or rashes noted. Hematologic: No petechiae or purpra. Mucosa appropriate color and normal nail bed color and refill. Extremities: Atraumatic, moves all extremities per self without difficulty or deficits, negative for cords or calf pain. Neurovascular unremarkable. Neuro: Awake, alert, oriented. Cranial nerves II through XII unremarkable. Cerebellum unremarkable. Motor and sensory unremarkable throughout. Exam nonfocal. Psychiatric: Mood and affect are appropriate. Normal thought process. Answering questions appropriately. Notes: GCS: 15, NIH: 0. Patient is adamant that she have a head CT stating that "Dr Cruz wanted it". Due to her reported intensity of headache, will get CT without contrast. Neurologically intact without any weakness, numbness, tingling, saddle paresthesia, speech difficulty or change in vision. EKG is unremarkable. Normal CMP including troponin. D-dimer is elevated, will do a CT of the chest to rule out PE. Patient informed the interventional radiology technologist that she may or may not have a allergy to IV contrast. She states she has had CTs with contrast before but thinks they gave her something IV to make sure she did not have an allergy. She is r equesting Benadryl prior to having the CT scan, will have nursing give this prior to any imaging. Patient had the CT with out any complications. Head CT shows no evidence of acute intracranial hemorrhage, mass-effect or loss of rajan-white differentiation. Atrophy and chronic ischemic changes with small old infarcts are noted. Head CT shows no evidence of pulmonary embolism. There is confluent soft tissue at the right hilum with partial encasement of the bronchovascular structures which may represent sequela of atypical inflammatory infiltrate. Multiple pulmonary nodules in the left lobe and left lung apex are also appreciated which may represent sequela of inflammatory infiltrate. The radiologist recommends follow-up in 3 to 6 months if symptoms are persistent. I have spoken with the patient/caregiver and discussed today's findings, in addition to providing specific details for plan of care. Reassessment at the time of disposition demonstrates that the patient is in no acute distress. The patient has remained stable throughout the entire ED visit and is without objective evidence for acute process requiring urgent intervention or hospitalization. The patient is stable for discharge, counseling was provided and we discussed in great detail signs and symptoms that would prompt them to return to the Emergency Department. Medication, follow up and supportive care measures were reviewed and discussed. Voices understanding and is agreeable to plan of care. Denies any further questions or concerns at this time. Diagnostics: CBC, CMP, Troponin, EKG, PE CT Chest, CXR, D.Dimer, Head CT Therapeutics: Benadryl Prescription: None Impression: Anxiety Headache Plan: 1. Today your lab work, COVID screening, EKG, and Head CT are normal. 2. Please follow up with Dr Christian Cruz. You can continue taking Tylenol as needed. 3. We encourage you to follow up with your primary care provider and/or recommended specialist in the next few days for re-evaluation and further care/management. If your symptoms should worsen, new symptoms develop or any of the signs and symptoms we discussed should arise please return to the emergency room or call 911 (if needed). Definitive disposition and diagnosis as appropriate pending reevaluation and review of above. Headache Pain Score (Numeric/FACES): 10 - Related Data Allergies Allergy/AdvReac Type Severity Reaction Status Date / Time diclofenac sodium Allergy Intermediate Nausea and Verified 03/13/20 16:38 [From Voltaren] Vomiting adhesive Allergy Rash Verified 03/13/20 16:38 aspirin Allergy Hives Verified 03/13/20 16:38 baclofen Allergy Cannot Verified 03/13/20 16:38 Remember calcium Allergy Nausea and Verified 03/13/20 16:38 Vomiting calcium chloride Allergy Hives Verified 03/13/20 16:38 cephalexin [From Keflex] Allergy Headache Verified 03/13/20 16:38 codeine Allergy Headache Verified 03/13/20 16:38 colistimethate sodium Allergy Rash Verified 03/13/20 16:38 [From Coly-Mycin M] erythromycin base Allergy Hives Verified 03/13/20 16:38 [Erythromycin Base] fluticasone [From Flonase] Allergy Itching Verified 03/13/20 16:38 gabapentin Allergy Chest Pain Verified 03/13/20 16:38 latex Allergy Hives Verified 03/13/20 16:38 levofloxacin Allergy Cannot Verified 03/13/20 16:38 Remember meloxicam Allergy Nausea and Verified 03/13/20 16:38 Vomiting naproxen [From Naprosyn] Allergy Nausea and Verified 03/13/20 16:38 Vomiting NSAIDS (Non-Steroidal Allergy Rash Verified 03/13/20 16:38 Anti-Inflamma nystatin Allergy Itching Verified 03/13/20 16:38 ondansetron [From Zofran] Allergy Headache Verified 03/13/20 16:38 oxycodone Allergy Headache Verified 03/13/20 16:38 propoxyphene [From Darvon] Allergy Rash Verified 03/13/20 16:38 propoxyphene HCl Allergy Nausea and Verified 03/13/20 16:38 [From Darvon] Vomiting salicylates Allergy Cannot Verified 03/13/20 16:38 Remember shellfish derived Allergy Rash Verified 03/13/20 16:38 sulindac Allergy Nausea and Verified 03/13/20 16:38 Vomiting tamsulosin Allergy Rash Verified 03/13/20 16:38 tramadol Allergy Nausea and Verified 03/13/20 16:38 Vomiting tramadol HCl [From Ultram] Allergy Nausea and Verified 03/13/20 16:38 Vomiting umeclidinium Allergy Nausea Verified 03/13/20 16:38 [From Anoro Ellipta] valacyclovir [From Valtrex] Allergy Rash Verified 03/13/20 16:38 vilanterol Allergy Nausea Verified 03/13/20 16:38 [From Anoro Ellipta] naproxen Allergy Rash Uncoded 03/13/20 16:38 propoxyphene Allergy Nausea and Uncoded 03/13/20 16:38 Vomiting Home Meds: Home Meds Levothyroxine Sodium [Synthroid] 50 mcg PO SUTUTHSA 08/31/13 [History] Acyclovir 400 mg PO TID PRN 02/08/18 [History] Esomeprazole Magnesium [Nexium] 40 mg PO DAILY 10/14/18 [History] Levothyroxine Sodium [Euthyrox] 25 mcg PO MOWEFR 10/14/18 [History] Multivitamin/Iron/Folic Acid [Centrum Adults Tablet] 1 tab PO DAILY 10/14/18 [History] predniSONE 10 mg PO BID 10/14/18 [History] Acetaminophen [Acetaminophen Extra Strength] 500 - 1,000 mg PO Q6H PRN #30 tablet 02/20/20 [Rx] NIFEdipine [Nifedipine ER] 30 mg PO DAILY 02/23/20 [History] Triazolam 0.125 mg PO BEDTIME 02/23/20 [History] Past Medical History HEENT History: Reports: Cataract, Other (See Below) Other HEENT History: had cataract surgery on 10/13/18, wears reading glasses Cardiovascular History: Reports: Arrhythmia Other Cardiovascular History: has been told she has an arrythmia Respiratory History: Reports: Other (See Below) Other Respiratory History: has Sarcoid lungs Gastrointestinal History: Reports: GERD Genitourinary History: Reports: Renal Calculus [employer] History: Reports: Musculoskeletal History: Reports: Back Pain, Chronic, Fibromyalgia, Osteoporosis Neurological History: Psychiatric History: Reports: Anxiety Endocrine/Metabolic History: Reports: Hypothyroidism Hematologic History: Reports: Anesthesia Reaction Other Hematologic History: states her "nerves overpowered the sedation" given pre-op and caused her "heart to stop" during appendectomy. Surgery was cancelled and done the next day. States she was not asleep when a ROVING CHANGER surgery was started. Immunologic History: Reports: Immunosuppression Dermatologic History: Reports: Other (See Below) Other Dermatologic History: hx of cold sores - Infectious Disease History Infectious Disease History: Reports: Mumps - Past Surgical History Head Surgeries/Procedures: Reports: None HEENT Surgical History: Reports: Cataract Surgery, Tonsillectomy Cardiovascular Surgical History: Reports: Varicose Other Cardiovascular Surgeries/Procedures: varicose vein ligation because of blood clot in vein GI Surgical History: Reports: Appendectomy, Cholecystectomy Female Surgical History: Reports: Breast Biopsy, Hysterectomy, Lithotripsy/ESWL, Salpingo-Oophorectomy, Tubal Ligation Neurological Surgical History: Reports: C-Spine Musculoskeletal Surgical History: Reports: Other (See Below) Other Musculoskeletal Surgeries/Procedures:: bunionectomy right foot, closed reduction right wrist Oncologic Surgical History: Reports: Lumpectomy Social & Family History - Family History Family Medical History: Noncontributory - Caffeine Use Caffeine Use: Reports: Coffee ED ROS GENERAL - Review of Systems Review Of Systems: Comprehensive ROS is negative, except as noted in HPI. ED EXAM, GENERAL - Physical Exam Exam: See Below (See dictation) Course - Vital Signs Last Recorded V/S: Last Vital Signs Temp 97.6 F 03/13/20 14:45 Pulse 88 03/13/20 14:45 Resp 18 03/13/20 14:45 BP 143/77 H 03/13/20 14:45 Pulse Ox 98 03/13/20 14:45 - Orders/Labs/Meds Orders: Active Orders 24 hr Category Date Time Status EKG Documentation Completion [RC] STAT Care 03/13/20 14:42 Active CORONAVIRUS COVID-19 PCR PHL Stat Lab 03/13/20 17:01 Received Labs: Laboratory Tests 03/13/20 03/13/20 03/13/20 Range/Units 14:35 14:35 14:35 WBC 7.48 (4.0-11.0) K/uL RBC 4.43 (4.30-5.90) M/uL Hgb 13.6 (12.0-16.0) g/dL Hct 41.6 (36.0-46.0) % MCV 93.9 (80.0-98.0) fL MCH 30.7 (27.0-32.0) pg MCHC 32.7 (31.0-37.0) g/dL RDW Std Deviation 45.3 (28.0-62.0) fl RDW Coeff of Miranda 13 (11.0-15.0) % Plt Count 339 (150-400) K/uL MPV 8.80 (7.40-12.00) fL Neut % (Auto) 88.5 H (48.0-80.0) % Lymph % (Auto) 9.4 L (16.0-40.0) % [place] % (Auto) 1.5 (0.0-15.0) % Eos % (Auto) 0.3 (0.0-7.0) % Baso % (Auto) 0.3 (0.0-1.5) % Neut # (Auto) 6.6 H (1.4-5.7) K/uL Lymph # (Auto) 0.7 (0.6-2.4) K/uL [place] # (Auto) 0.1 (0.0-0.8) K/uL Eos # (Auto) 0.0 (0.0-0.7) K/uL Baso # (Auto) 0.0 (0.0-0.1) K/uL Nucleated RBC % 0.0 /100WBC Nucleated RBCs # 0 K/uL D-Dimer, Quantitative 1.00 H (0.0-0.50) mg/L FEU Sodium 141 (136-145) mmol/L Potassium 3.7 (3.5-5.1) mmol/L Chloride 105 (98-107) mmol/L Carbon Dioxide 24.9 (21.0-32.0) mmol/L BUN 14 (7.0-18.0) mg/dL Creatinine 0.7 (0.6-1.0) mg/dL Est Cr Clr Drug Dosing TNP Estimated GFR (MDRD) > 60.0 ml/min Glucose 85 (74-106) mg/dL Calcium 10.1 (8.5-10.1) mg/dL Total Bilirubin 0.6 (0.2-1.0) mg/dL AST 23 (15-37) IU/L ALT 24 (14-63) IU/L Alkaline Phosphatase 60 (46-116) U/L Troponin I < 0.050 (0.000-0.056) ng/mL Total Protein 7.4 (6.4-8.2) g/dL Albumin 4.2 (3.4-5.0) g/dL Globulin 3.2 (2.6-4.0) g/dL Albumin/Globulin Ratio 1.3 (0.9-1.6) Urine Color Urine Appearance Urine pH (5.0-8.0) Ur Specific [place] (1.001-1.035) Urine Protein (NEGATIVE) mg/dL Urine Glucose (UA) (NEGATIVE) mg/dL Urine Ketones (NEGATIVE) mg/dL Urine Occult Blood (NEGATIVE) Urine Nitrite (NEGATIVE) Urine Bilirubin (NEGATIVE) Urine Urobilinogen (<2.0) EU/dL Ur Leukocyte Esterase (NEGATIVE) SARS CoV-2 RNA Rapid CORINNE (NEGATIVE) 03/13/20 03/13/20 Range/Units 16:04 17:01 WBC (4.0-11.0) K/uL RBC (4.30-5.90) M/uL Hgb (12.0-16.0) g/dL Hct (36.0-46.0) % MCV (80.0-98.0) fL MCH (27.0-32.0) pg MCHC (31.0-37.0) g/dL RDW Std Deviation (28.0-62.0) fl RDW Coeff of Miranda (11.0-15.0) % Plt Count (150-400) K/uL MPV (7.40-12.00) fL Neut % (Auto) (48.0-80.0) % Lymph % (Auto) (16.0-40.0) % [place] % (Auto) (0.0-15.0) % Eos % (Auto) (0.0-7.0) % Baso % (Auto) (0.0-1.5) % Neut # (Auto) (1.4-5.7) K/uL Lymph # (Auto) (0.6-2.4) K/uL [place] # (Auto) (0.0-0.8) K/uL Eos # (Auto) (0.0-0.7) K/uL Baso # (Auto) (0.0-0.1) K/uL Nucleated RBC % /100WBC Nucleated RBCs # K/uL D-Dimer, Quantitative (0.0-0.50) mg/L FEU Sodium (136-145) mmol/L Potassium (3.5-5.1) mmol/L Chloride (98-107) mmol/L Carbon Dioxide (21.0-32.0) mmol/L BUN (7.0-18.0) mg/dL Creatinine (0.6-1.0) mg/dL Est Cr Clr Drug Dosing Estimated GFR (MDRD) ml/min Glucose (74-106) mg/dL Calcium (8.5-10.1) mg/dL Total Bilirubin (0.2-1.0) mg/dL AST (15-37) IU/L ALT (14-63) IU/L Alkaline Phosphatase (46-116) U/L Troponin I (0.000-0.056) ng/mL Total Protein (6.4-8.2) g/dL Albumin (3.4-5.0) g/dL Globulin (2.6-4.0) g/dL Albumin/Globulin Ratio (0.9-1.6) Urine Color YELLOW Urine Appearance CLEAR Urine pH 7.0 (5.0-8.0) Ur Specific [place] 1.010 (1.001-1.035) Urine Protein NEGATIVE (NEGATIVE) mg/dL Urine Glucose (UA) NEGATIVE (NEGATIVE) mg/dL Urine Ketones 15 H (NEGATIVE) mg/dL Urine Occult Blood NEGATIVE (NEGATIVE) Urine Nitrite NEGATIVE (NEGATIVE) Urine Bilirubin NEGATIVE (NEGATIVE) Urine Urobilinogen 0.2 (<2.0) EU/dL Ur Leukocyte Esterase NEGATIVE (NEGATIVE) SARS CoV-2 RNA Rapid CORINNE NEGATIVE (NEGATIVE) Meds: Medications Discontinued Medications Generic Name Dose Route Start Last Admin Trade Name Saundra PRN Reason Stop Dose Admin Diphenhydramine HCl 25 mg 03/13/20 15:31 03/13/20 15:36 Benadryl IVPUSH 03/13/20 15:32 25 mg ONETIME ONE Administration Diphenhydramine HCl Confirm 03/13/20 15:32 03/13/20 15:42 Benadryl Administered 03/13/20 15:33 Not Given Dose 50 mg .ROUTE .STK-MED ONE Iopamidol 74 ml 03/13/20 15:50 03/13/20 15:53 Isovue Multipack-370 (76%) IVPUSH 03/13/20 15:51 74 ml ONETIME ONE Administration Lorazepam 0.5 mg 03/13/20 15:06 03/13/20 15:42 Ativan PO 03/13/20 15:07 Not Given ONETIME ONE Departure - Departure Time of Disposition: 17:41 Disposition: Home, Self-Care 01 Clinical Impression: Anxiety, Shortness of breath Headache Qualifiers: Headache type: tension-type Headache chronicity pattern: acute headache Intractability: not intractable Qualified Code(s): G44.209 - Tension-type headache, unspecified, not intractable - Discharge Information Instructions: Shortness of Breath, Adult, [id number] Referrals: PCP,None [Primary Care Provider] - Forms: ED Department Discharge Additional Instructions: The following information is given to patients seen in the emergency department who are being discharged to home. This information is to outline your options for follow-up care. We provide all patients seen in our emergency department with a follow-up referral. The need for follow-up, as well as the timing and circumstances, are variable depending upon the specifics of your emergency department visit. If you don't have a primary care physician on staff, we will provide you with a referral. We always advise you to contact your personal physician following an emergency department visit to inform them of the circumstance of the visit and for follow-up with them and/or the need for any referrals to a consulting specialist. The emergency department will also refer you to a specialist when appropriate. This referral assures that you have the opportunity for follow-up care with a specialist. All of these measure are taken in an effort to provide you with optimal care, which includes your follow-up. Under all circumstances we always encourage you to contact your private physician who remains a resource for coordinating your care. When calling for follow-up care, please make the office aware that this follow-up is from your recent emergency room visit. If for any reason you are refused follow-up, please contact the [facility] Emergency Department at and asked to speak to the emergency department charge nurse. [facility] Primary [facility] [address] [place] [id number] [facility] [address] [place] [id number] Thank you for choosing the [facility] emergency department in [place] for your medical needs today. It was a pleasure caring for you. Today you were seen in the emergency department for headache and shortness of breathe. 1. Today your lab work, COVID screening, EKG, and Head CT are normal. 2. Please follow up with Dr Christian Cruz. You can continue taking Tylenol as nee ded. 3. We encourage you to follow up with your primary care provider and/or recommended specialist in the next few days for re-evaluation and further care/management. If your symptoms should worsen, new symptoms develop or any of the signs and symptoms we discussed should arise please return to the emergency room or call 911 (if needed). Sepsis Event Note (ED) - Focused Exam Vital Signs: Vital Signs Temp Pulse Resp BP Pulse Ox 03/13/20 14:45 97.6 F 88 18 143/77 H 98 - My Orders Last 24 Hours: My Active Orders 03/13/20 14:42 EKG Documentation Completion [RC] STAT 03/13/20 17:01 CORONAVIRUS COVID-19 PCR PHL Stat - Assessment/Plan Last 24 Hours: My Active Orders 03/13/20 14:42 EKG Documentation Completion [RC] STAT 03/13/20 17:01 CORONAVIRUS COVID-19 PCR PHL Stat
--- NOTE | 2020-03-13 15:11 | PCM.SN.2 ---
#1 Interpretation EKG Date: 03/13/20 Time: 15:02 Rhythm: NSR Rate (Beats/Min): 75 [place]: Normal P-Wave: Present QRS: Normal ST-T: Normal QT: Normal CO/PQ Interval: 140
[2020-03-13 15:24] LABS: BLOOD UREA NITROGEN,BUN 14 mg/dL (7.0-18.0); CARBON DIOXIDE,CO2 24.9 mmol/L (21.0-32.0); CHLORIDE,CL 105 mmol/L (98-107); GLUCOSE RANDOM 85 mg/dL (74-106); POTASSIUM,K 3.7 mmol/L (3.5-5.1); SODIUM,NA 141 mmol/L (136-145)
[2020-03-13] MEDS ORDERED: diphenhydrAMINE 50 MG/ML SDV IVPUSH ONE (15:31)
[2020-03-13] MEDS ORDERED: diphenhydrAMINE 50 MG/ML SDV ONE (15:32)
--- NOTE | 2020-03-13 15:44 | CT ---
INDICATION: Headache TECHNIQUE: CT head without contrast. COMPARISON: None available FINDINGS: There is age-related cerebral and cerebellar cortical atrophy with mild proportionate ventriculomegaly. There is no mass effect or midline shift. White matter hypodensities are suggestive of chronic small vessel ischemic changes. There are small chronic cerebellar infarcts and chronic caudate head, left ganglionic and left thalamic lacunar infarcts. There is no loss of rajan-white differentiation. There is no evidence of an acute intracranial hemorrhage. No acute calvarial fracture is seen. There is osteopenia. The visualized paranasal sinuses and mastoid air cells are clear. Post cataract surgery changes are seen. IMPRESSION: No evidence of an acute intracranial hemorrhage, mass effect or loss of rajan-white differentiation. Atrophy and chronic ischemic changes with small old infarcts. Please note that all CT scans at this facility use dose modulation, iterative reconstruction, and/or weight-based dosing when appropriate to reduce radiation dose to as low as reasonably achievable. Dictated by Godfrey Fish MD @ Mar 13 2020 3:36PM Signed by Dr. Godfrey Fish @ Mar 13 2020 3:42PM
[2020-03-13 15:46] VITALS: BP 143/77; PULSE 88
[2020-03-13] MEDS ORDERED: Iopamidol 755 MG/ML 500 ML Multipack Bottle IVPUSH ONE (15:50)
--- NOTE | 2020-03-13 15:50 | CR ---
Indication: SOB Technique: Chest 1 view Comparison: 08/18/2019 Findings/Impression: Cardiovascular and mediastinum: Grossly stable cardiomediastinal silhouette. A mildly unfolded, calcified aorta. Lungs and pleural space: Calcified hilar and mediastinal lymph nodes again seen. Foci of small clustered nodular opacities again seen in the upper lobes which could be related to chronic scarring, not significantly changed. Left perihilar scarring again seen. No lobar consolidation or pleural effusions. No pneumothorax seen. Bones and soft tissues: Postsurgical changes again seen in the lower cervical spine. A partially imaged ovoid metallic density projecting over the lumbar spine, nonspecific. Dictated by Godfrey Fish MD @ Mar 13 2020 3:36PM Signed by Dr. Godfrey Fish @ Mar 13 2020 3:48PM
--- NOTE | 2020-03-13 16:18 | CT ---
Indication: Dyspnea, elevated D-dimer Technique: Volumetric multidetector CT images of the chest were obtained after the administration of IV contrast. 74 milliliters Isovue 370 low osmolar contrast Comparison: None available. Findings: The thoracic inlet and thyroid gland are unremarkable. The thoracic aorta demonstrates minimal scattered atherosclerotic calcifications and is grossly non aneurysmal. There is no central filling defect to suggest pulmonary embolism. There are extensive calcified mediastinal and hilar lymph nodes with somewhat conglomerate right greater than left hilar deana soft tissues the largest measuring 2.3 centimeters. There is associated parenchymal scarring. There is traction bronchiectasis within the lung bases and encasement of right hilar bronchovascular structures. There are nodular foci of airspace opacity predominantly in the right hilum and left lung apex there is associated parenchymal scar. There is no definite dense consolidation or effusion. There is no pneumothorax. Dominance pulmonary nodule within the anterior left upper lobe seen on series 401, image 164 measures 6.3 millimeters. The partially visualized upper abdominal viscera demonstrate Aortic calcified lymph nodes. Otherwise the partially visualized upper abdominal viscera are grossly within normal limits. The thoracic vertebral body heights demonstrate endplate Schmorl`s defects without evidence of significant spondylolisthesis or displaced fracture. There is no lytic or blastic lesion. Impression: No evidence of pulmonary embolus. Demonstration of confluent soft tissue at the right hilum with partial encasement of the bronchovascular structures which may represent sequela of atypical inflammatory infiltrate. An underlying mass is difficult to exclude. Follow-up with direct visualization if there is persistent clinical concern. Multiple pulmonary nodules in the left upper lobe and left lung apex are also appreciated which may represent sequela of inflammatory infiltrate. Consider short-term follow-up with repeat exam in 3-6 months if there remains persistent clinical concern. Please note that all CT scans at this facility use dose modulation, iterative reconstruction, and/or weight-based dosing when appropriate to reduce radiation dose to as low as reasonably achievable. Dictated by Deejay Dawson MD @ Mar 13 2020 4:10PM Signed by Dr. Deejay Dawson @ Mar 13 2020 4:16PM
== END 2020-03-13 18:05 | disposition home or self-care (01) ==
LOC: MW.ED 14:31
DX: G44.209 Tension-type headache, unspecified, not intractable (principal); F41.9 Anxiety disorder, unspecified; K21.9 Gastro-esophageal reflux disease without esophagitis; E03.9 Hypothyroidism, unspecified; Z20.828 Contact with and (suspected) exposure to other viral communicable diseases; Z88.6 Allergy status to analgesic agent; Z91.048 Other nonmedicinal substance allergy status; Z88.1 Allergy status to other antibiotic agents; Z91.040 Latex allergy status; Z88.5 Allergy status to narcotic agent; Z79.899 Other long term (current) drug therapy; Z91.013 Allergy to seafood; Z88.8 Allergy status to other drugs, medicaments and biological substances
CPT/HCPCS: 36415; 70450; 71045; 71275; 80053; 81003; 84484; 85025; 85379; 93005; 96374; 99285; J1200; Q9967; U0002; 93010; 99284

== ENCOUNTER 2020-07-16 14:45 | Emergency (ER) | payer MEDICARE, BC ==
--- NOTE | 2020-07-16 15:50 | EDM.PDOC ---
ED HPI GENERAL MEDICAL PROBLEM - General Chief Complaint: Upper Extremity Injury/Pain Stated Complaint: SHOOTING PAIN UP RT ARM Time Seen by Provider: 07/16/20 15:38 Source of Information: Reports: Patient History Limitations: Reports: No Limitations - History of Present Illness INITIAL COMMENTS - FREE TEXT/NARRATIVE: 80-year-old female presents with acute onset right wrist pain today while she was turning the steering wheel to the right. She has had chronic right wrist pain for about a month but symptoms worsened today. Pain is localized to the palmar surface of her right wrist, nonradiating, moderate in severity, currently pain-free, exacerbated by palpation, alleviated with immobilization, sharp in nature. She denies elbow pain, focal numbness or weakness, fever, chills, chest pain. ROS: A 10-point review of systems, other than pertinent positives and negatives as stated per HPI, is otherwise negative Past medical history: No additional pertinent history Past Surgical history: No additional pertinent history Social history: No additional pertinent history Family history: No additional pertinent history PHYSICAL EXAM General: AOx4, GCS = 15, mild distress HEENT: dry mucous membrane Neck: supple, no meningismus, no Kernig or Brudzinski Cardiac: S1S2 RRR Respiratory: CTAB, no crackles or rales, no wheezing Abdomen: Soft, nontender, no rebound or guarding, nondistended, no pulsatile mass. Back: nontender Musculoskeletal: NVI distally, positive Tinel sign, no snuffbox tenderness, no deformity Neuro: No focal deficits, CN 2 - 12 WNL. - Related Data Allergies Allergy/AdvReac Type Severity Reaction Status Date / Time diclofenac sodium Allergy Intermediate Nausea and Verified 07/16/20 15:38 [From Voltaren] Vomiting adhesive Allergy Rash Verified 07/16/20 15:38 aspirin Allergy Hives Verified 07/16/20 15:38 baclofen Allergy Cannot Verified 07/16/20 15:38 Remember calcium Allergy Nausea and Verified 07/16/20 15:38 Vomiting calcium chloride Allergy Hives Verified 03/07/21 15:38 cephalexin [From Keflex] Allergy Headache Verified 07/16/20 15:38 codeine Allergy Headache Verified 07/16/20 15:38 colistimethate sodium Allergy Rash Verified 07/16/20 15:38 [From Coly-Mycin M] erythromycin base Allergy Hives Verified 07/16/20 15:38 [Erythromycin Base] fluticasone [From Flonase] Allergy Itching Verified 07/16/20 15:38 gabapentin Allergy Chest Pain Verified 07/16/20 15:38 latex Allergy Hives Verified 07/16/20 15:38 levofloxacin Allergy Cannot Verified 07/16/20 15:38 Remember meloxicam Allergy Nausea and Verified 07/16/20 15:38 Vomiting naproxen [From Naprosyn] Allergy Nausea and Verified 07/16/20 15:38 Vomiting NSAIDS (Non-Steroidal Allergy Rash Verified 07/16/20 15:38 Anti-Inflamma nystatin Allergy Itching Verified 07/16/20 15:38 ondansetron [From Zofran] Allergy Headache Verified 07/16/20 15:38 oxycodone Allergy Headache Verified 07/16/20 15:38 propoxyphene [From Darvon] Allergy Rash Verified 07/16/20 15:38 propoxyphene HCl Allergy Nausea and Verified 07/16/20 15:38 [From Darvon] Vomiting salicylates Allergy Cannot Verified 07/16/20 15:38 Remember shellfish derived Allergy Rash Verified 07/16/20 15:38 sulindac Allergy Nausea and Verified 07/16/20 15:38 Vomiting tamsulosin Allergy Rash Verified 07/16/20 15:38 tramadol Allergy Nausea and Verified 07/16/20 15:38 Vomiting tramadol HCl [From Ultram] Allergy Nausea and Verified 07/16/20 15:38 Vomiting umeclidinium Allergy Nausea Verified 07/16/20 15:38 [From Anoro Ellipta] valacyclovir [From Valtrex] Allergy Rash Verified 07/16/20 15:38 vilanterol Allergy Nausea Verified 07/16/20 15:38 [From Anoro Ellipta] naproxen Allergy Rash Uncoded 07/16/20 15:38 propoxyphene Allergy Nausea and Uncoded 07/16/20 15:38 Vomiting Home Meds: Home Meds Levothyroxine Sodium [Synthroid] 50 mcg PO SUTUTHSA 08/31/13 [History] Acyclovir 400 mg PO TID PRN 02/08/18 [History] Esomeprazole Magnesium [Nexium] 40 mg PO DAILY 10/14/18 [History] Levothyroxine Sodium [Euthyrox] 25 mcg PO MOWEFR 10/14/18 [History] Multivitamin/Iron/Folic Acid [Centrum Adults Tablet] 1 tab PO DAILY 10/14/18 [History] predniSONE 10 mg PO BID 10/14/18 [History] Acetaminophen [Acetaminophen Extra Strength] 500 - 1,000 mg PO Q6H PRN #30 tablet 02/20/20 [Rx] NIFEdipine [Nifedipine ER] 30 mg PO DAILY 02/23/20 [History] Triazolam 0.125 mg PO BEDTIME 02/23/20 [History] Past Medical History HEENT History: Reports: Cataract, Other (See Below) Other HEENT History: had cataract surgery on 10/13/18, wears reading glasses Cardiovascular History: Reports: Arrhythmia Other Cardiovascular History: has been told she has an arrythmia Respiratory History: Reports: Other (See Below) Other Respiratory History: has Sarcoid lungs Gastrointestinal History: Reports: GERD Genitourinary History: Reports: Renal Calculus TREKKING GUIDE History: Reports: Musculoskeletal History: Reports: Back Pain, Chronic, Fibromyalgia, Osteoporosis Neurological History: Psychiatric History: Reports: Anxiety Endocrine/Metabolic History: Reports: Hypothyroidism Hematologic History: Reports: Anesthesia Reaction Other Hematologic History: states her "nerves overpowered the sedation" given pre-op and caused her "heart to stop" during appendectomy. Surgery was cancelled and done the next day. States she was not asleep when a RELAY TESTER surgery was started. Immunologic History: Reports: Immunosuppression Dermatologic History: Reports: Other (See Below) Other Dermatologic History: hx of cold sores - Infectious Disease History Infectious Disease History: Reports: Mumps - Past Surgical History Head Surgeries/Procedures: Reports: None HEENT Surgical History: Reports: Cataract Surgery, Tonsillectomy Cardiovascular Surgical History: Reports: Varicose Other Cardiovascular Surgeries/Procedures: varicose vein ligation because of blood clot in vein GI Surgical History: Reports: Appendectomy, Cholecystectomy Female Surgical History: Reports: Breast Biopsy, Hysterectomy, Lithotripsy/ESWL, Salpingo-Oophorectomy, Tubal Ligation Neurological Surgical History: Reports: C-Spine Musculoskeletal Surgical History: Reports: Other (See Below) Other Musculoskeletal Surgeries/Procedures:: bunionectomy right foot, closed reduction right wrist Oncologic Surgical History: Reports: Lumpectomy Social & Family History - Family History Family Medical History: No Pertinent Family History - Caffeine Use Caffeine Use: Reports: None - Recreational Drug Use Recreational Drug Use: No Review of Systems - Review of Systems Review Of Systems: See Below (see dictation) ED EXAM, GENERAL - Physical Exam Exam: See Below (see dictation) ED TRAUMA EXTREMITY PROCEDURES - Splinting Right Upper Extremity Splint Site: Right wrist Pre-Procedure NV Status: Normal Post-Procedure NV Status: Normal Splint Material: Velcro Splint Design: Volar Applied & Form Fitted By: Nurse Provider Post-Splint Application NV Check: NV Status Normal, Good Position Complications: No Course - Vital Signs Last Recorded V/S: Last Vital Signs Temp 96.8 F L 07/16/20 16:24 Pulse 87 07/16/20 16:24 Resp 18 07/16/20 16:24 BP 111/62 07/16/20 16:24 Pulse Ox 99 07/16/20 16:24 - Orders/Labs/Meds Orders: Active Orders 24 hr Category Date Time Status DME for Discharge [COMM] Stat Oth 07/16/20 15:55 Ordered - Re-Assessments/Exams Free Text/Narrative Re-Assessment/Exam: 07/16/20 16:30 After splinting in the ER, the patient improved and is currently stable for discharge. I performed a repeat exam and did not appreciate new abnormal findings. Patient exhibits normal vital signs. I advised the patient to return to the ER for reevaluation if symptoms worsened, including fever, worsening pain, or any other worrisome symptoms. I instructed the patient to follow up with their PCP within 2-3 days. MEDICAL DECISION MAKING: I reviewed the patients past medical records, lab and radiographic findings. I discussed the case with the patient. My differential diagnosis included: Carpal tunnel syndrome, wrist sprain. Her right wrist demonstrated good distal perfusion, warm, pink, cap refill <2 seconds, compartments soft, pulses equal in both extremities. I do not suspect gamekeeper's thumb, flexor tenosynovitis, scaphoid fracture. She understands to return immediately for worsening pain, swelling, fever, numbness/tingling or other concerns and to f/u with PMD if no improvement of symptoms within 3-5 days. Departure - Departure Time of Disposition: 16:29 Disposition: Home, Self-Care 01 Condition: Good Clinical Impression: Sprain of wrist, right - Discharge Information *PRESCRIPTION DRUG MONITORING PROGRAM REVIEWED*: Not Applicable *COPY OF PRESCRIPTION DRUG MONITORING REPORT IN PATIENT DAVID: Not Applicable Instructions: Cast or Splint Care, Adult, Eplo-[id number], Wrist Sprain, Adult Referrals: Christian Cruz MD [Primary Care Provider] - 3 Days Forms: ED Department Discharge Additional Instructions: The need for follow-up, as well as the timing and circumstances, are variable depending upon the specifics of your emergency department visit. If you don't have a primary care physician on staff, we will provide you with a referral. We always advise you to contact your personal physician following an emergency department visit to inform them of the circumstance of the visit and for follow-up with them and/or the need for any referrals to a consulting specialist. The emergency department will also refer you to a specialist when appropriate. This referral assures that you have the opportunity for follow-up care with a specialist. All of these measure are taken in an effort to provide you with optimal care, which includes your follow-up. Under all circumstances we always encourage you to contact your private physician who remains a resource for coordinating your care. When calling for follow-up care, please make the office aware that this follow-up is from your recent emergency room visit. If for any reason you are refused follow-up, please contact the [facility] Emergency Department at and asked to speak to the emergency department charge nurse. If you do not have a primary care doctor, please follow up with the clinics below within 3-5 days. Jack[address] [facility] - Primary Care [address] [place] [id number] [facility] [address] [place] [address] Sepsis Event Note (ED) - Evaluation Sepsis Screening Result: No Definite Risk - Focused Exam Vital Signs: Vital Signs Temp Pulse Resp BP Pulse Ox 07/16/20 16:24 96.8 F L 87 18 111/62 99 07/16/20 15:33 97 F 93 16 128/78 98 - My Orders Last 24 Hours: My Active Orders 07/16/20 15:55 DME for Discharge [COMM] Stat - Assessment/Plan Last 24 Hours: My Active Orders 07/16/20 15:55 DME for Discharge [COMM] Stat
--- NOTE | 2020-07-16 16:16 | CR ---
HISTORY: Wrist pain. COMPARISON: None. FINDINGS: Three views of the right wrist. Arthritic changes are noted is in the radiocarpal joints as well as the base of the thumb. Cystic changes in the carpal bones are likely degenerative. Osteopenia. No evidence for acute fracture or dislocation. Mild soft tissue swelling about the wrist. Dictated by Adelaida Munguia MD @ Jul 16 2020 4:13PM Signed by Dr. Adelaida Munguia @ Jul 16 2020 4:14PM
[2020-07-16 16:25] VITALS: BP 111/62; PULSE 87
== END 2020-07-16 16:47 | disposition home or self-care (01) ==
LOC: MW.ED 14:45
DX: S63.501A Unspecified sprain of right wrist, initial encounter (principal); K21.9 Gastro-esophageal reflux disease without esophagitis; E03.9 Hypothyroidism, unspecified; Z88.6 Allergy status to analgesic agent; Z91.048 Other nonmedicinal substance allergy status; Z88.1 Allergy status to other antibiotic agents; Z88.5 Allergy status to narcotic agent; Z91.040 Latex allergy status; Z88.8 Allergy status to other drugs, medicaments and biological substances; Z91.013 Allergy to seafood; Z79.899 Other long term (current) drug therapy; X58.XXXA Exposure to other specified factors, initial encounter
CPT/HCPCS: 29125; 73110-26-RT; 73110-RT; 99283; 99283-25

== ENCOUNTER 2020-08-13 00:14 | Emergency (ER) | payer MEDICARE, BC ==
[2020-08-13] MEDS ORDERED: Lidocaine 5% 700 MG Patch TOP ONE (01:17)
[2020-08-13 02:01] LABS: BLOOD UREA NITROGEN,BUN 20 mg/dL (7.0-18.0); CARBON DIOXIDE,CO2 30.4 mmol/L (21.0-32.0); CHLORIDE,CL 104 mmol/L (98-107); GLUCOSE RANDOM 92 mg/dL (74-106); POTASSIUM,K 3.9 mmol/L (3.5-5.1); SODIUM,NA 141 mmol/L (136-145)
--- NOTE | 2020-08-13 02:40 | CR ---
INDICATION: Chest pain TECHNIQUE: Upright AP view of the chest COMPARISON: None FINDINGS: The lungs are clear. There is no sizable pleural effusion or pneumothorax. The cardiac silhouette is not enlarged. There are numerous calcified mediastinal and bilateral hilar lymph nodes. ACDF changes are noted at the lower cervical levels and at T1. IMPRESSION: 1. No acute cardiopulmonary process. 2. Calcified mediastinal and hilar lymph nodes, compatible with granulomatous disease. Dictated by Bita Hussein MD @ Aug 13 2020 2:37AM Signed by Dr. Bita Hussein @ Aug 13 2020 2:39AM
--- NOTE | 2020-08-13 03:17 | EDM.PDOC ---
ED HPI GENERAL MEDICAL PROBLEM - General Chief Complaint: Chest Pain Stated Complaint: PAIN UNDER RIB CAGE- LEFT SIDE Time Seen by Provider: 08/13/20 01:12 - History of Present Illness INITIAL COMMENTS - FREE TEXT/NARRATIVE: CHIEF COMPLAINT(S): Left-sided chest pain HISTORY OF PRESENT ILLNESS: This is an 80-year-old woman with a past medical history of sarcoidosis who presents to the emergency department with left-sided chest pain. The patient states that for approximately 1 week now she has been experiencing left-sided chest pain. The patient states that she is experiencing 6 out of 10 chest pain that began 1 week ago. She states the pain is located on the left side of her chest near her lower ribs and describes the pain as cramping/bruising. She states that there is not any radiation anywhere. She st ates that the pain is not relieved by Tylenol and the pain is exacerbated by touching it and deep breathing and movement. She denies any diaphoresis, nausea, vomiting, shortness of breath, cough. She states that this all began after she was trying to get a box off a shelf and it hit the left side of her rib. She denies any history of CAD or CHF. She denies any recent travel recent surgery, prior history of DVT or PE. REVIEW OF SYSTEMS: Constitutional: Denies fever, chills. Eyes: Denies eye pain Ears, Nose, Mouth, & Throat: Denies earache Cardiovascular: Positive for left-sided chest pain Respiratory: Denies shortness of breath Gastrointestinal: Denies Nausea, vomiting, diarrhea, hematochezia. Genitourinary: Denies hematuria Skin:Denies a rash MSK: Denies joint pain Neurological: Denies blurred vision, numbness, tingling, weakness Psychiatric: Denies depression PAST MEDICAL HISTORY: As per history of present illness and as reviewed below otherwise noncontributory. SURGICAL HISTORY: As per history of present illness and as reviewed below otherwise noncontributory. SOCIAL HISTORY: As per history of present illness and as reviewed below otherwise noncontributory. FAMILY HISTORY: As per history of present illness and as reviewed below otherwise noncontributory. EXAMINATION OF ORGAN SYSTEMS/BODY AREAS: Constitutional: Blood pressure was 113/62, heart rate 99, respiratory rate 18 with an oxygen saturation 95% on room air. Temperature 36.8 General: Elderly woman who does not appear to be in acute distress Psychiatric: Appropriate mood and affect. Eyes: No scleral icterus or conjunctival erythema ENMT: Moist mucous membranes. No pharyngeal erythema Cardiovascular: Regular, rate, and rhythm. No gallops, murmurs, or rubs. Bilateral upper extremity pulses symmetric and intact. No peripheral edema. No JVD. There is severe tenderness to palpation along the lower left ribs without any overlying skin changes or deformity. Respiratory: Lungs clear to auscultation bilaterally. No wheezes, rales, or rhonchi. Gastrointestinal: Soft, non-tender, non-distended. Normoactive bowel sounds Genitourinary: No suprapubic tenderness Musculoskeletal: Normal range of motion. Skin: No lesions or abrasions. Neurological: Alert, GCS 15 MEDICAL DECISION MAKING AND COURSE IN THE ED WITH INTERPRETATION/REVIEW OF DIAGNOSTIC STUDIES: This is an 80-year-old woman with a past medical history of sarcoidosis who comes to the emergency department with left lower rib pain that began approximately 1 week ago after dropping a box on the left side of her chest. An EKG was obtained which did not reveal any acute signs of ischemia. Given her history of sarcoidosis and her age will obtain a cardiac work-up. Only 1 troponin will be obtained as the duration of her symptoms have been 1 week and intermittently exacerbated. The patient has a significant allergy history including all NSAIDs therefore we will provide the patient with a lidocaine patch. Heart Score History: Slightly or Non-Suspicious (0) ECG: Normal (0) Age:>65 (2) Risk Factors: No known risk factors (0) Initial Troponin: </= normal limit (0) Total Score: 2 Wells Criteria Clinical signs/symptoms of DVT: No (0) PE #1 Dx or equally likely: No (0) Heart Rate >100: No (0) Immobilization for 3 days or surgery in last month: No (0) Previously Dx PE or DVT: No (0) Hemoptysis: No (0) Malignancy w/ Tx within 6 months or palliative: No (0) Wells Score: 0 Laboratory: CBC is unremarkable. BMP is unremarkable. Magnesium is normal. Troponin is negative. The radiological images were viewed by myself along with reading the report from the radiologist. Chest x-ray does not reveal acute cardiopulmonary process. His calcified mediastinal and hilar lymph nodes compatible with granulomatous disease. After labs and imaging I did discuss results with the patient. At this time her pain did not significantly improved however I do believe this is secondary to a rib contusion given the point tenderness on examination and her history of how her pain started. I did discuss at this time it is going to be difficult to control her pain however I did want her to use an incentive spirometer to pr event pneumonia. I discussed with her that she should use Tylenol 500-1000 milligrams every 6 hours for pain relief the next couple of days and to use ice to the affected area 20 minutes 4 times a day. She is to follow-up with her primary care physician for continued monitoring and treatment. She was amenable to discharge at this time and had no further question DISPOSITION: The patient was discharged home in stable condition. The patient will follow up with her primary care physician within 3 to 5 days CONDITION: Fair PROCEDURES: None FINAL IMPRESSION(S)/DIAGNOSES: 1. Acute left-sided rib contusions Paul Tucker M.D. L rib pain Pain Score (Numeric/FACES): 6 - Related Data Allergies Allergy/AdvReac Type Severity Reaction Status Date / Time diclofenac sodium Allergy Intermediate Nausea and Verified 08/13/20 01:07 [From Voltaren] Vomiting adhesive Allergy Rash Verified 08/13/20 01:07 aspirin Allergy Hives Verified 08/13/20 01:07 baclofen Allergy Cannot Verified 08/13/20 01:07 Remember calcium Allergy Nausea and Verified 08/13/20 01:07 Vomiting calcium chloride Allergy Hives Verified 08/13/20 01:07 cephalexin [From Keflex] Allergy Headache Verified 08/13/20 01:07 codeine Allergy Headache Verified 08/13/20 01:07 colistimethate sodium Allergy Rash Verified 08/13/20 01:07 [From Coly-Mycin M] erythromycin base Allergy Hives Verified 08/13/20 01:07 [Erythromycin Base] fluticasone [From Flonase] Allergy Itching Verified 08/13/20 01:07 gabapentin Allergy Chest Pain Verified 08/13/20 01:07 latex Allergy Hives Verified 08/13/20 01:07 levofloxacin Allergy Cannot Verified 08/13/20 01:07 Remember meloxicam Allergy Nausea and Verified 08/13/20 01:07 Vomiting naproxen [From Naprosyn] Allergy Nausea and Verified 08/13/20 01:07 Vomiting NSAIDS (Non-Steroidal Allergy Rash Verified 08/13/20 01:07 Anti-Inflamma nystatin Allergy Itching Verified 08/13/20 01:07 ondansetron [From Zofran] Allergy Headache Verified 08/13/20 01:07 oxycodone Allergy Headache Verified 08/13/20 01:07 propoxyphene [From Darvon] Allergy Rash Verified 08/13/20 01:07 propoxyphene HCl Allergy Nausea and Verified 08/13/20 01:07 [From Darvon] Vomiting salicylates Allergy Cannot Verified 08/13/20 01:07 Remember shellfish derived Allergy Rash Verified 08/13/20 01:07 sulindac Allergy Nausea and Verified 08/13/20 01:07 Vomiting tamsulosin Allergy Rash Verified 08/13/20 01:07 tramadol Allergy Nausea and Verified 08/13/20 01:07 Vomiting tramadol HCl [From Ultram] Allergy Nausea and Verified 08/13/20 01:07 Vomiting umeclidinium Allergy Nausea Verified 08/13/20 01:07 [From Anoro Ellipta] valacyclovir [From Valtrex] Allergy Rash Verified 08/13/20 01:07 vilanterol Allergy Nausea Verified 08/13/20 01:07 [From Anoro Ellipta] naproxen Allergy Rash Uncoded 07/16/20 15:38 propoxyphene Allergy Nausea and Uncoded 07/16/20 15:38 Vomiting Home Meds: Home Meds Levothyroxine Sodium [Synthroid] 50 mcg PO SUTUTHSA 08/31/13 [History] Acyclovir 400 mg PO TID PRN 02/08/18 [History] Esomeprazole Magnesium [Nexium] 40 mg PO DAILY 10/14/18 [History] Levothyroxine Sodium [Euthyrox] 25 mcg PO MOWEFR 10/14/18 [History] Multivitamin/Iron/Folic Acid [Centrum Adults Tablet] 1 tab PO DAILY 10/14/18 [History] predniSONE 10 mg PO BID 10/14/18 [History] Acetaminophen [Acetaminophen Extra Strength] 500 - 1,000 mg PO Q6H PRN #30 tablet 02/20/20 [Rx] NIFEdipine [Nifedipine ER] 30 mg PO DAILY 02/23/20 [History] Triazolam 0.125 mg PO BEDTIME 02/23/20 [History] Lidocaine 5% [Lidoderm 5%] 1 patch TOP DAILY #7 patch 08/13/20 [Rx] Past Medical History HEENT History: Reports: Cataract, Other (See Below) Other HEENT History: had cataract surgery on 10/13/18, wears reading glasses Cardiovascular History: Reports: Arrhythmia Other Cardiovascular History: has been told she has an arrythmia Respiratory History: Reports: Other (See Below) Other Respiratory History: has Sarcoid lungs Gastrointestinal History: Reports: GERD Genitourinary History: Reports: Renal Calculus 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 Surgery was cancelled and done the next day. States she was not asleep when a ASSEMBLER TUBING surgery was started. Immunologic History: Reports: Immunosuppression Dermatologic History: Reports: Other (See Below) Other Dermatologic History: hx of cold sores - Infectious Disease History Infectious Disease History: Reports: Mumps - Past Surgical History Head Surgeries/Procedures: Reports: None HEENT Surgical History: Reports: Cataract Surgery, Tonsillectomy Cardiovascular Surgical History: Reports: Varicose Other Cardiovascular Surgeries/Procedures: varicose vein ligation because of blood clot in vein GI Surgical History: Reports: Appendectomy, Cholecystectomy Female Surgical History: Reports: Breast Biopsy, Hysterectomy, Lithotripsy/ESWL, Salpingo-Oophorectomy, Tubal Ligation Neurological Surgical History: Reports: C-Spine Musculoskeletal Surgical History: Reports: Other (See Below) Other Musculoskeletal Surgeries/Procedures:: bunionectomy right foot, closed reduction right wrist Oncologic Surgical History: Reports: Lumpectomy Social & Family History - Family History Family Medical History: No Pertinent Family History - Caffeine Use Caffeine Use: Reports: Tea - Recreational Drug Use Recreational Drug Use: No ED ROS GENERAL - Review of Systems Review Of Systems: See Below ED EXAM, GENERAL - Physical Exam Exam: See Below Course - Vital Signs Last Recorded V/S: Last Vital Signs Temp 36.8 C 08/13/20 01:09 Pulse 91 08/13/20 03:36 Resp 18 08/13/20 03:36 BP 118/64 08/13/20 03:36 Pulse Ox 95 08/13/20 03:36 - Orders/Labs/Meds Labs: Laboratory Tests 08/13/20 08/13/20 Range/Units 01:32 01:32 WBC 7.51 (4.0-11.0) K/uL RBC 4.19 L (4.30-5.90) M/uL Hgb 13.0 (12.0-16.0) g/dL Hct 39.1 (36.0-46.0) % MCV 93.3 (80.0-98.0) fL MCH 31.0 (27.0-32.0) pg MCHC 33.2 (31.0-37.0) g/dL RDW Std Deviation 42.2 (28.0-62.0) fl RDW Coeff of Miranda 13 (11.0-15.0) % Plt Count 286 (150-400) K/uL MPV 8.40 (7.40-12.00) fL Neut % (Auto) 65.2 (48.0-80.0) % Lymph % (Auto) 20.9 (16.0-40.0) % [place] % (Auto) 10.3 (0.0-15.0) % Eos % (Auto) 2.8 (0.0-7.0) % Baso % (Auto) 0.8 (0.0-1.5) % Neut # (Auto) 4.9 (1.4-5.7) K/uL Lymph # (Auto) 1.6 (0.6-2.4) K/uL [place] # (Auto) 0.8 (0.0-0.8) K/uL Eos # (Auto) 0.2 (0.0-0.7) K/uL Baso # (Auto) 0.1 (0.0-0.1) K/uL Sodium 141 (136-145) mmol/L Potassium 3.9 (3.5-5.1) mmol/L Chloride 104 (98-107) mmol/L Carbon Dioxide 30.4 (21.0-32.0) mmol/L BUN 20 H (7.0-18.0) mg/dL Creatinine 0.7 (0.6-1.0) mg/dL Est Cr Clr Drug Dosing 2.08 mL/min Estimated GFR (MDRD) > 60.0 ml/min Glucose 92 (74-106) mg/dL Calcium 8.7 (8.5-10.1) mg/dL Magnesium 2.2 (1.8-2.4) mg/dL Troponin I < 0.050 (0.000-0.056) ng/mL Meds: Medications Discontinued Medications Generic Name Dose Route Start Last Admin Trade Name Saundra PRN Reason Stop Dose Admin Lidocaine 700 mg 08/13/20 01:17 08/13/20 01:52 Lidocaine 5% 700 Mg Patch TOP 08/13/20 01:18 700 mg ONETIME ONE Administration Departure - Departure Time of Disposition: 03:16 Disposition: Home, Self-Care 01 Condition: Fair Clinical Impression: Rib contusion - Discharge Information *PRESCRIPTION DRUG MONITORING PROGRAM REVIEWED*: No *COPY OF PRESCRIPTION DRUG MONITORING REPORT IN PATIENT DAVID: No Prescriptions: Lidocaine 5% [Lidoderm 5%] 1 patch TOP DAILY #7 patch Instructions: Rib Contusion Referrals: Christian Cruz MD [Primary Care Provider] - Forms: ED Department Discharge Additional Instructions: You evaluate today on an emergent basis. At this time your work-up was negative. At this time I do believe that your pain is secondary to a rib contusion. At this time I do recommend Tylenol 500 mg 2000 mg every 6 hours. Do not take more than 4000 mg/day. Given that you are allergic to NSAIDs I do recommend the use of ice to the area 20 minutes 4 times a day and I did send a prescription for the lidocaine patch. That can be changed daily. I would like you to follow-up with your primary care physician within 1 week for reevaluation. Please return for any new or worsening symptoms such as worsening chest pain, cough, shortness of breath, passing out. [facility] - [facility] [address] [place] [id number] [id number] The patient is informed of any results of their evaluation and diagnostic workup and all questions are answered. They are given discharge instructions and return precautions. The patient is stable for discharge. The patient states they understand and agree with the plan and that they will return if their symptoms get worse or if they have any new concerns. The following information is given to patients seen in the emergency department who are being discharged to home. This information is to outline your options for follow-up care. We provide all patients seen in our emergency department with a follow-up referral. The need for follow-up, as well as the timing and circumstances, are variable depending upon the specifics of your emergency department visit. If you don't have a primary care physician on staff, we will provide you with a referral. We always advise you to contact your personal physician following an emergency department visit to inform them of the circumstance of the visit and for follow-up with them and/or the need for any referrals to a consulting specialist. The emergency department will also refer you to a specialist when appropriate. This referral assures that you have the opportunity for follow-up care with a specialist. All of these measure are taken in an effort to provide you with optimal care, which includes your follow-up. Under all circumstances we always encourage you to contact your private physician who remains a resource for coordinating your care. When calling for follow-up care, please make the office aware that this follow-up is from your recent emergency room visit. If for any reason you are refused follow-up, please contact the [facility] Emergency Department at and asked to speak to the emergency department charge nurse. Sepsis Event Note (ED) - Evaluation Sepsis Screening Result: No Definite Risk
[2020-08-13 04:53] VITALS: BP 118/64; PULSE 91
--- NOTE | 2020-08-13 07:08 | PCM.EKG ---
#1 Interpretation EKG Date: 08/13/20 Time: 01:13 Rhythm: NSR Rate (Beats/Min): 99 [place]: Normal P-Wave: Present QRS: Normal ST-T: Normal QT: Normal Comparison: No Change (03/13/20) EKG Interpretation Comments: Sinus Rhythm
== END 2020-08-13 03:36 | disposition home or self-care (01) ==
LOC: MW.ED 00:14
DX: S20.212A Contusion of left front wall of thorax, initial encounter (principal); K21.9 Gastro-esophageal reflux disease without esophagitis; E03.9 Hypothyroidism, unspecified; Z88.6 Allergy status to analgesic agent; Z91.048 Other nonmedicinal substance allergy status; Z88.1 Allergy status to other antibiotic agents; Z88.5 Allergy status to narcotic agent; Z88.8 Allergy status to other drugs, medicaments and biological substances; Z91.040 Latex allergy status; Z91.013 Allergy to seafood; Z79.899 Other long term (current) drug therapy; W22.8XXA Striking against or struck by other objects, initial encounter
CPT/HCPCS: 36415; 71045; 80048; 83735; 84484; 85025; 93005; 99284; A9270; 93010

== ENCOUNTER 2020-08-28 22:40 | Emergency (ER) | payer MEDICARE, BC ==
[2020-08-28 23:41] VITALS: PULSE 108
[2020-08-29] MEDS ORDERED: Sodium Chloride 0.9% 1,000 ML IV ONE (00:28)
[2020-08-29] MEDS ORDERED: diphenhydrAMINE 50 MG/ML SDV IVPUSH ONE (00:31)
[2020-08-29] MEDS ORDERED: Prochlorperazine 10 MG in Sodium Chloride 0.9% 50 ML IV ONE (00:32)
[2020-08-29] MEDS ORDERED: Prochlorperazine 10 MG/2 ML SDV ONE (00:35)
[2020-08-29 00:39] LABS: BLOOD UREA NITROGEN,BUN 22 mg/dL (7.0-18.0); CARBON DIOXIDE,CO2 26.8 mmol/L (21.0-32.0); CHLORIDE,CL 106 mmol/L (98-107); GLUCOSE RANDOM 151 mg/dL (74-106); POTASSIUM,K 3.9 mmol/L (3.5-5.1); SODIUM,NA 141 mmol/L (136-145)
[2020-08-29] MEDS ORDERED: Prochlorperazine 10 MG/2 ML SDV IVPUSH ONE (00:41)
[2020-08-29 00:50] LABS: LIPASE 324 U/L (73-393)
--- NOTE | 2020-08-29 01:32 | CT ---
INDICATION: Headache, nausea TECHNIQUE: CT Head without i.v. contrast. Coronal and sagittal reformats were obtained. COMPARISON: 03/13/2020 FINDINGS: CSF space: Unremarkable for age. 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 mild patchy regions of low attenuation are present in the periventricular white matter, likely due to chronic microvascular ischemic changes. No mass-effect or midline shift is seen. Mild diffuse cortical atrophy is noted. Calvarium: The visualized paranasal sinuses are well aerated. The mastoid air cells are clear. The patient is status post bilateral cataract removal. The calvarium is unremarkable in appearance with no fractures identified. IMPRESSION: 1. No evidence of acute infarction, intracranial hemorrhage, or mass-effect seen. Dictated by Behzad Gong MD @ 08/29/2020 1:31:29 AM Please note that all CT scans at this facility use dose modulation, iterative reconstruction, and/or weight-based dosing when appropriate to reduce radiation dose to as low as reasonably achievable. Dictated by: Behzad Gong MD @ 08/29/2020 01:31:35 (Electronically Signed)
--- NOTE | 2020-08-29 01:43 | EDM.PDOC ---
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 Patient denies any recent fevers, shakes, chills, vomiting, diarrhea, dysuria, frequency, urgency, chest pain, shortness of breath. Patient denies any weakness to her upper or lower extremities. Patient denies any visual changes. Patient denies any flashing lights. Patient denies any aura or preictal state. Patient denies any abdominal pain or discomfort. Patient denies any chest pressure, pain rating down her arms jaw or back. Patient reports that she does have a history of neck surgery in the past, status post cholecystectomy, status post hysterectomy. Review of systems: As per history of present illness and below otherwise all systems reviewed and negative. Past medical history: As per history of present illness and as reviewed below otherwise noncontributory. Surgical history: As per history of present illness and as reviewed below otherwise noncontributory. Social history: No reported history of drug or alcohol abuse. Family history: As per history of present illness and as reviewed below otherwise noncontributory. Physical exam: HEENT: Atraumatic, normocephalic, pupils reactive, negative for conjunctival pallor or scleral icterus, mucous membranes moist, throat clear, neck supple, nontender, trachea midline. Neck supple, no nuchal rigidity, no photophobia, no Kernig's sign or Brudzinski sign, patient does not present with signs or symptoms of be consistent with meningitis. Lungs: Clear to auscultation, breath sounds equal bilaterally, chest nontender. Heart: S1S2, regular, negative for clicks, rubs, or JVD. Abdomen: Soft, nondistended, nontender. Negative for masses or hepatosplenomegaly. Negative for costovertebral tenderness. Pelvis: Stable nontender. Genitourinary: Deferred. Rectal: Deferred. Extremities: Atraumatic, negative for cords or calf pain. Neurovascular unremarkable. Neuro: Awake, alert, oriented. Cranial nerves II through XII unremarkable. Cerebellum unremarkable. Motor and sensory unremarkable throughout. Exam nonfocal. Diagnostics: CBC, CMP, EKG, CT head all unremarkable. EKG: As interpreted by ER physician: [place]: Nonspecific ST-T wave abnormalities Normal axis No evidence of ST elevation VA Sinus tachycardia 110 Therapeutics: NSS x1 L, Benadryl by 5 mg IV, Compazine 10 mg IV Assessment and plan: 80-year-old female who presents ER today secondary to nausea and headache. Etiology of her symptoms are unclear. Patient does not appear to be in any acute distress at this time. Patient's exam is benign in nature. Patient has no evidence of meningitis on exam. Patient has no evidence of glaucoma. CT scan of her head was unremarkable. Patient's CBC and CMP are within normal limits. Patient does feel improved after the IV fluids and Compazine and Benadryl here in the ED but still is perplexed as to why she had the symptoms. I have recommended the patient follow-up with her doctor in the next 1 to 2 days for reevaluation and reassessment of her symptoms. Patient was instructed to return to the ER she develops any new or concerning symptoms. Reassessment at the time of disposition demonstrates that the patient is in no acute distress. The patient has remained stable throughout the entire ED visit and is without objective evidence for acute process requiring urgent intervention or hospitalization. The patient is stable for discharge, counseling is provided as documented above, discussed symptomatic treatment and specific conditions for return. I have spoken with the patient/caregiver and discussed todays findings, in addition to providing specific details for the plan of care. Questions are answered and there is agreement with the plan. Definitive disposition and diagnosis as appropriate pending reevaluation and review of above. headache Pain Score (Numeric/FACES): 8 - Related Data Allergies Allergy/AdvReac Type Severity Reaction Status Date / Time diclofenac sodium Allergy Intermediate Nausea and Verified 08/28/20 23:37 [From Voltaren] Vomiting adhesive Allergy Rash Verified 08/28/20 23:37 aspirin Allergy Hives Verified 08/28/20 23:37 baclofen Allergy Cannot Verified 08/28/20 23:37 Remember calcium Allergy Nausea and Verified 08/28/20 23:37 Vomiting calcium chloride Allergy Hives Verified 08/28/20 23:37 cephalexin [From Keflex] Allergy Headache Verified 08/28/20 23:37 codeine Allergy Headache Verified 08/28/20 23:37 colistimethate sodium Allergy Rash Verified 08/28/20 23:37 [From Coly-Mycin M] erythromycin base Allergy Hives Verified 08/28/20 23:37 [Erythromycin Base] fluticasone [From Flonase] Allergy Itching Verified 08/28/20 23:37 gabapentin Allergy Chest Pain Verified 08/28/20 23:37 latex Allergy Hives Verified 08/28/20 23:37 levofloxacin Allergy Cannot Verified 08/28/20 23:37 Remember meloxicam Allergy Nausea and Verified 08/28/20 23:37 Vomiting naproxen [From Naprosyn] Allergy Nausea and Verified 08/28/20 23:37 Vomiting NSAIDS (Non-Steroidal Allergy Rash Verified 08/28/20 23:37 Anti-Inflamma nystatin Allergy Itching Verified 08/28/20 23:37 ondansetron [From Zofran] Allergy Headache Verified 08/28/20 23:37 oxycodone Allergy Headache Verified 08/28/20 23:37 propoxyphene [From Darvon] Allergy Rash Verified 08/28/20 23:37 propoxyphene HCl Allergy Nausea and Verified 08/28/20 23:37 [From Darvon] Vomiting salicylates Allergy Cannot Verified 08/28/20 23:37 Remember shellfish derived Allergy Rash Verified 08/28/20 23:37 sulindac Allergy Nausea and Verified 08/28/20 23:37 Vomiting tamsulosin Allergy Rash Verified 08/28/20 23:37 tramadol Allergy Nausea and Verified 08/28/20 23:37 Vomiting tramadol HCl [From Ultram] Allergy Nausea and Verified 08/28/20 23:37 Vomiting umeclidinium Allergy Nausea Verified 08/28/20 23:37 [From Anoro Ellipta] valacyclovir [From Valtrex] Allergy Rash Verified 08/28/20 23:37 vilanterol Allergy Nausea Verified 08/28/20 23:37 [From Anoro Ellipta] naproxen Allergy Rash Uncoded 08/28/20 23:37 propoxyphene Allergy Nausea and Uncoded 08/28/20 23:37 Vomiting Home Meds: Home Meds Levothyroxine Sodium [Synthroid] 50 mcg PO SUTUTHSA 08/31/13 [History] Acyclovir 400 mg PO TID PRN 02/08/18 [History] Esomeprazole Magnesium [Nexium] 40 mg PO DAILY 10/14/18 [History] Levothyroxine Sodium [Euthyrox] 25 mcg PO MOWEFR 10/14/18 [History] Multivitamin/Iron/Folic Acid [Centrum Adults Tablet] 1 tab PO DAILY 10/14/18 [History] predniSONE 10 mg PO BID 10/14/18 [History] Acetaminophen [Acetaminophen Extra Strength] 500 - 1,000 mg PO Q6H PRN #30 tablet 02/20/20 [Rx] NIFEdipine [Nifedipine ER] 30 mg PO DAILY 02/23/20 [History] Triazolam 0.125 mg PO BEDTIME 02/23/20 [History] Lidocaine 5% [Lidoderm 5%] 1 patch TOP DAILY #7 patch 08/13/20 [Rx] Past Medical History HEENT History: Reports: Cataract, Other (See Below) Other HEENT History: had cataract surgery on 10/13/18, wears reading glasses Cardiovascular History: Reports: Arrhythmia Other Cardiovascular History: has been told she has an arrythmia Respiratory History: Reports: Other (See Below) Other Respiratory History: has Sarcoid lungs Gastrointestinal History: Reports: GERD Genitourinary History: Reports: Renal Calculus 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 Surgery was cancelled and done the next day. States she was not asleep when a DERMATOLOGY SPECIALIST surgery was started. Immunologic History: Reports: Immunosuppression Oncologic (Cancer) History: Reports: None Dermatologic History: Reports: Other (See Below) Other Dermatologic History: hx of cold sores - Infectious Disease History Infectious Disease History: Reports: Mumps - Past Surgical History Head Surgeries/Procedures: Reports: None HEENT Surgical History: Reports: Cataract Surgery, Tonsillectomy Cardiovascular Surgical History: Reports: Varicose Other Cardiovascular Surgeries/Procedures: varicose vein ligation because of blood clot in vein GI Surgical History: Reports: Appendectomy, Cholecystectomy Female Surgical History: Reports: Breast Biopsy, Hysterectomy, Lithotripsy/ESWL, Salpingo-Oophorectomy, Tubal Ligation Neurological Surgical History: Reports: C-Spine Musculoskeletal Surgical History: Reports: Other (See Below) Other Musculoskeletal Surgeries/Procedures:: bunionectomy right foot, closed reduction right wrist Oncologic Surgical History: Reports: Lumpectomy Social & Family History - Family History Family Medical History: No Pertinent Family History - Caffeine Use Caffeine Use: Reports: Tea - Recreational Drug Use Recreational Drug Use: No ED ROS GENERAL - Review of Systems Review Of Systems: See Below ED EXAM, GENERAL - Physical Exam Exam: See Below Course - Vital Signs Last Recorded V/S: Last Vital Signs Temp 97.5 F 08/28/20 23:39 Pulse 108 H 08/28/20 23:39 Resp 18 08/28/20 23:39 BP 122/57 L 08/28/20 23:39 Pulse Ox 97 08/28/20 23:39 - Orders/Labs/Meds Orders: Active Orders 24 hr Category Date Time Status UA W/EVERARDO RFLX IF INDICATED [URIN] Stat Lab 08/29/20 00:29 Ordered Labs: Laboratory Tests 08/28/20 08/28/20 08/28/20 Range/Units 23:30 23:30 23:30 WBC 6.75 (4.0-11.0) K/uL RBC 4.13 L (4.30-5.90) M/uL Hgb 13.1 (12.0-16.0) g/dL Hct 38.9 (36.0-46.0) % MCV 94.2 (80.0-98.0) fL MCH 31.7 (27.0-32.0) pg MCHC 33.7 (31.0-37.0) g/dL RDW Std Deviation 46.4 (28.0-62.0) fl RDW Coeff of Miranda 13 (11.0-15.0) % Plt Count 326 (150-400) K/uL MPV 9.30 (7.40-12.00) fL Neut % (Auto) 67.6 (48.0-80.0) % Lymph % (Auto) 17.5 (16.0-40.0) % [place] % (Auto) 10.7 (0.0-15.0) % Eos % (Auto) 3.6 (0.0-7.0) % Baso % (Auto) 0.6 (0.0-1.5) % Neut # (Auto) 4.6 (1.4-5.7) K/uL Lymph # (Auto) 1.2 (0.6-2.4) K/uL [place] # (Auto) 0.7 (0.0-0.8) K/uL Eos # (Auto) 0.2 (0.0-0.7) K/uL Baso # (Auto) 0.0 (0.0-0.1) K/uL Nucleated RBC % 0.0 /100WBC Nucleated RBCs # 0 K/uL Sodium 141 (136-145) mmol/L Potassium 3.9 (3.5-5.1) mmol/L Chloride 106 (98-107) mmol/L Carbon Dioxide 26.8 (21.0-32.0) mmol/L BUN 22 H (7.0-18.0) mg/dL Creatinine 0.6 (0.6-1.0) mg/dL Est Cr Clr Drug Dosing 51.92 mL/min Estimated GFR (MDRD) > 60.0 ml/min Glucose 151 H (74-106) mg/dL Calcium 9.0 (8.5-10.1) mg/dL Total Bilirubin 0.2 (0.2-1.0) mg/dL AST 19 (15-37) IU/L ALT 28 (14-63) IU/L Alkaline Phosphatase 53 (46-116) U/L Troponin I < 0.050 (0.000-0.056) ng/mL Total Protein 7.3 (6.4-8.2) g/dL Albumin 3.7 (3.4-5.0) g/dL Globulin 3.6 (2.6-4.0) g/dL Albumin/Globulin Ratio 1.0 (0.9-1.6) Lipase 324 (73-393) U/L Meds: Medications Discontinued Medications Generic Name Dose Route Start Last Admin Trade Name Freq PRN Reason Stop Dose Admin Diphenhydramine HCl 25 mg 08/29/20 00:31 08/29/20 00:39 Diphenhydramine 50 Mg/Ml Sdv IVPUSH 08/29/20 00:32 25 mg ONETIME ONE Administration Sodium Chloride 1,000 mls @ 999 mls/hr 08/29/20 00:28 08/29/20 00:38 Normal Saline IV 08/29/20 01:28 999 mls/hr .Bolus ONE Administration Prochlorperazine Edisylate 10 52 mls @ 150 mls/hr 08/29/20 00:32 08/29/20 00:42 mg/ Sodium Chloride IV 08/29/20 00:52 Not Given ONETIME ONE Prochlorperazine Edisylate Confirm 08/29/20 00:35 08/29/20 00:42 Prochlorperazine 10 Mg/2 Ml Sdv Administered 08/29/20 00:36 Not Given Dose 10 mg .ROUTE .STK-MED ONE Prochlorperazine Edisylate 10 mg 08/29/20 00:41 08/29/20 00:42 Prochlorperazine 10 Mg/2 Ml Sdv IVPUSH 08/29/20 00:42 10 mg ONETIME ONE Administration Departure - Departure Time of Disposition: 01:41 Disposition: Home, Self-Care 01 Condition: Good Clinical Impression: Headache, Nausea - Discharge Information Instructions: Nausea, Adult, General Headache Without Cause Referrals: Christian Cruz MD [Primary Care Provider] - Additional Instructions: You were seen and evaluated in the ER today for symptoms that occurred while you are doing her dishes. It is unclear why you start developing the symptoms including the headache and the nausea. The blood test that we obtained are all within normal limits. The CT scan of your head does not reveal any abnormalities. Your cardiac evaluation was normal here in the ER. While you are in the ER you were given 1 L of normal saline, and Benadryl/Compazine to assist with your headache. Please make an appointment to see your family doctor in the next 1 to 2 days for reevaluation. Please return to the ER if you start developing any new or concerning symptoms. The following information is given to patients seen in the emergency department who are being discharged to home. This information is to outline your options for follow-up care. We provide all patients seen in our emergency department with a follow-up referral. The need for follow-up, as well as the timing and circumstances, are variable depending upon the specifics of your emergency department visit. If you don't have a primary care physician on staff, we will provide you with a referral. We always advise you to contact your personal physician following an emergency department visit to inform them of the circumstance of the visit and for follow-up with them and/or the need for any referrals to a consulting specialist. The emergency department will also refer you to a specialist when appropriate. This referral assures that you have the opportunity for follow-up care with a specialist. All of these measure are taken in an effort to provide you with optimal care, which includes your follow-up. Under all circumstances we always encourage you to contact your private physician who remains a resource for coordinating your care. When calling for follow-up care, please make the office aware that this follow-up is from your recent emergency room visit. If for any reason you are refused follow-up, please contact the [facility] Emergency Department at and asked to speak to the emergency department charge nurse. [facility] [address] [place] [id number] [facility] [address] [place] [id number] Sepsis Event Note (ED) - Evaluation Sepsis Screening Result: No Definite Risk - Focused Exam Vital Signs: Vital Signs Temp Pulse Resp BP Pulse Ox 08/28/20 23:39 97.5 F 108 H 18 122/57 L 97 - My Orders Last 24 Hours: My Active Orders 08/29/20 00:29 UA W/EVERARDO RFLX IF INDICATED [URIN] Stat - Assessment/Plan Last 24 Hours: My Active Orders 08/29/20 00:29 UA W/EVERARDO RFLX IF INDICATED [URIN] Stat
[2020-08-29 02:56] VITALS: BP 130/60
== END 2020-08-29 02:00 | disposition home or self-care (01) ==
LOC: MW.ED 22:40
DX: R51.9 Headache, unspecified (principal); R11.0 Nausea; E03.9 Hypothyroidism, unspecified; Z88.6 Allergy status to analgesic agent; Z91.048 Other nonmedicinal substance allergy status; Z88.1 Allergy status to other antibiotic agents; Z88.5 Allergy status to narcotic agent; Z91.040 Latex allergy status; Z88.8 Allergy status to other drugs, medicaments and biological substances; Z91.013 Allergy to seafood; Z79.899 Other long term (current) drug therapy
CPT/HCPCS: 36415; 70450; 80053; 83690; 84484; 85025; 93005; 96374; 96375; 99284; J0780; J1200; J7030; 93010

== ENCOUNTER 2020-09-09 15:36 | Observation (INO) | payer MEDICARE, BC ==
[2020-09-09] MEDS ORDERED: Sodium Chloride 0.9% 2.5 ML Syringe FLUSH PRN (16:06)
[2020-09-09] MEDS ORDERED: Sodium Chloride 0.9% 10 ML Syringe FLUSH PRN (16:06)
[2020-09-09] MEDS ORDERED: Lactated Ringers 1,000 ML IV ONE (16:07)
--- NOTE | 2020-09-09 16:13 | EDM.PDOC ---
ED HPI GENERAL MEDICAL PROBLEM - General Chief Complaint: Gastrointestinal Problem Stated Complaint: DIZZY CANT EAT OR DRINK ANYTHING FOR 4 DAYS Time Seen by Provider: 09/09/20 15:38 - History of Present Illness INITIAL COMMENTS - FREE TEXT/NARRATIVE: Patient is an 80-year-old female she has a history of sarcoid but does not take any chronic immunosuppression. She is not currently on steroids. She is presenting with lightheadedness and intractable nausea vomiting and diarrhea. Patient for several symptoms approximately 5 days ago. Restarted first and was followed by nausea and emesis. Few days ago she was seen in her primary care doctor's office and stool sample was sent off. She has been found to be positive for rotavirus. Patient has no severe abdominal pain but she has profound problems with emesis and diarrhea and generalized weakness. She reports gradually losing weight as well. No chest pain no shortness of breath no alleviating factors radiation or other associated symptoms. Upper Abdomen Pain Score (Numeric/FACES): 10 - Related Data Allergies Allergy/AdvReac Type Severity Reaction Status Date / Time diclofenac sodium Allergy Intermediate Nausea and Verified 09/09/20 15:54 [From Voltaren] Vomiting adhesive Allergy Rash Verified 09/09/20 15:54 aspirin Allergy Hives Verified 09/09/20 15:54 baclofen Allergy Cannot Verified 09/09/20 15:54 Remember calcium Allergy Nausea and Verified 09/09/20 15:54 Vomiting calcium chloride Allergy Hives Verified 09/09/20 15:54 cephalexin [From Keflex] Allergy Headache Verified 09/09/20 15:54 codeine Allergy Headache Verified 09/09/20 15:54 colistimethate sodium Allergy Rash Verified 09/09/20 15:54 [From Coly-Mycin M] erythromycin base Allergy Hives Verified 09/09/20 15:54 [Erythromycin Base] fluticasone [From Flonase] Allergy Itching Verified 09/09/20 15:54 gabapentin Allergy Chest Pain Verified 09/09/20 15:54 latex Allergy Hives Verified 09/09/20 15:54 levofloxacin Allergy Cannot Verified 09/09/20 15:54 Remember meloxicam Allergy Nausea and Verified 09/09/20 15:54 Vomiting naproxen [From Naprosyn] Allergy Nausea and Verified 09/09/20 15:54 Vomiting NSAIDS (Non-Steroidal Allergy Rash Verified 09/09/20 15:54 Anti-Inflamma nystatin Allergy Itching Verified 09/09/20 15:54 ondansetron [From Zofran] Allergy Headache Verified 09/09/20 15:54 oxycodone Allergy Headache Verified 09/09/20 15:54 propoxyphene [From Darvon] Allergy Rash Verified 09/09/20 15:54 propoxyphene HCl Allergy Nausea and Verified 09/09/20 15:54 [From Darvon] Vomiting salicylates Allergy Cannot Verified 09/09/20 15:54 Remember shellfish derived Allergy Rash Verified 09/09/20 15:54 sulindac Allergy Nausea and Verified 09/09/20 15:54 Vomiting tamsulosin Allergy Rash Verified 09/09/20 15:54 tramadol Allergy Nausea and Verified 09/09/20 15:54 Vomiting tramadol HCl [From Ultram] Allergy Nausea and Verified 09/09/20 15:54 Vomiting umeclidinium Allergy Nausea Verified 09/09/20 15:54 [From Anoro Ellipta] valacyclovir [From Valtrex] Allergy Rash Verified 09/09/20 15:54 vilanterol Allergy Nausea Verified 09/09/20 15:54 [From Anoro Ellipta] naproxen Allergy Rash Uncoded 09/09/20 15:54 propoxyphene Allergy Nausea and Uncoded 09/09/20 15:54 Vomiting Home Meds: Home Meds Levothyroxine Sodium [Synthroid] 50 mcg PO SUTUTHSA 08/31/13 [History] Acyclovir 400 mg PO TID PRN 02/08/18 [History] Esomeprazole Magnesium [Nexium] 40 mg PO DAILY 10/14/18 [History] Levothyroxine Sodium [Euthyrox] 25 mcg PO MOWEFR 10/14/18 [History] Multivitamin/Iron/Folic Acid [Centrum Adults Tablet] 1 tab PO DAILY 10/14/18 [History] predniSONE 10 mg PO BID 10/14/18 [History] Acetaminophen [Acetaminophen Extra Strength] 500 - 1,000 mg PO Q6H PRN #30 tablet 02/20/20 [Rx] NIFEdipine [Nifedipine ER] 30 mg PO DAILY 02/23/20 [History] Triazolam 0.125 mg PO BEDTIME 02/23/20 [History] Lidocaine 5% [Lidoderm 5%] 1 patch TOP DAILY #7 patch 08/13/20 [Rx] Past Medical History HEENT History: Reports: Cataract, Other (See Below) Other HEENT History: had cataract surgery on 10/13/18, wears reading glasses Cardiovascular History: Reports: Arrhythmia Other Cardiovascular History: has been told she has an arrythmia Respiratory History: Reports: Other (See Below) Other Respiratory History: has Sarcoid lungs Gastrointestinal History: Reports: GERD Genitourinary History: Reports: Renal Calculus 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 Surgery was cancelled and done the next day. States she was not asleep when a ELECTRO MECHANICAL TECHNOLOGIST surgery was started. Immunologic History: Reports: Immunosuppression Oncologic (Cancer) History: Reports: None Dermatologic History: Reports: Other (See Below) Other Dermatologic History: hx of cold sores - Infectious Disease History Infectious Disease History: Reports: Mumps - Past Surgical History Head Surgeries/Procedures: Reports: None HEENT Surgical History: Reports: Cataract Surgery, Tonsillectomy Cardiovascular Surgical History: Reports: Varicose Other Cardiovascular Surgeries/Procedures: varicose vein ligation because of blood clot in vein GI Surgical History: Reports: Appendectomy, Cholecystectomy Female Surgical History: Reports: Breast Biopsy, Hysterectomy, Lithotripsy/ESWL, Salpingo-Oophorectomy, Tubal Ligation Neurological Surgical History: Reports: C-Spine Musculoskeletal Surgical History: Reports: Other (See Below) Other Musculoskeletal Surgeries/Procedures:: bunionectomy right foot, closed reduction right wrist Oncologic Surgical History: Reports: Lumpectomy Social & Family History - Family History Family Medical History: No Pertinent Family History - Caffeine Use Caffeine Use: Reports: Tea ED ROS GENERAL - Review of Systems Review Of Systems: See Below Free Text/Narrative/Comment: General: No fever. Skin: No rash. Eyes: No vision problems. ENT: No sore throat. Neck: No neck stiffness. Respiratory: No shortness of breath. Cardiac: No chest pain. Gastrointestinal: Per HPI Urinary: No dysuria. Musculoskeletal: No myalgias/arthralgias. Neurologic: No headache. ED EXAM, GENERAL - Physical Exam Exam: See Below Free Text/Narrative:: General Appearance: No acute distress Skin: No rash HEENT: Normocephalic/atraumatic, sclera anicteric, mucous membranes dry Neck: Normal range of motion Chest and Lungs: Bilateral breath sounds, clear to auscultation Cardiovascular: Regular rate and rhythm, no murmur Abdomen: Soft, non-tender Back: Normal Musculoskeletal: No edema or tenderness Neurologic: Awake, alert, no obvious deficits, moving all extremities Psychiatric: Appropriate, cooperative Course - Vital Signs Last Recorded V/S: Last Vital Signs Temp 97.2 F 09/09/20 15:58 Pulse 87 09/09/20 15:58 Resp 20 09/09/20 15:58 BP 140/80 09/09/20 15:58 Pulse Ox 97 09/09/20 15:58 - Orders/Labs/Meds Orders: Active Orders 24 hr Category Date Time Status CORONAVIRUS COVID-19 CORINNE [MOLEC] Stat Lab 09/09/20 16:13 Ordered Sodium Chloride 0.9% [Saline Flush] Med 09/09/20 16:06 Active 10 ml FLUSH ASDIRECTED PRN Sodium Chloride 0.9% [Saline Flush] Med 09/09/20 16:06 Active 2.5 ml FLUSH ASDIRECTED PRN Saline Lock Insert [OM.PC] Stat Oth 09/09/20 16:06 Ordered Medication Orders Sodium Chloride (Sodium Chloride 0.9% 10 Ml Syringe) 10 ml FLUSH ASDIRECTED PRN PRN Reason: Keep Vein Open Last Admin: 09/09/20 16:36 Dose: 10 ml Documented by: RUPERT Sodium Chloride (Sodium Chloride 0.9% 2.5 Ml Syringe) 2.5 ml FLUSH ASDIRECTED PRN PRN Reason: Keep Vein Open Last Admin: 09/09/20 16:36 Dose: 2.5 ml Documented by: RUPERT Labs: Laboratory Tests 09/09/20 09/09/20 Range/Units 16:00 16:00 WBC 6.16 (4.0-11.0) K/uL RBC 4.64 (4.30-5.90) M/uL Hgb 14.9 (12.0-16.0) g/dL Hct 42.5 (36.0-46.0) % MCV 91.6 (80.0-98.0) fL MCH 32.1 H (27.0-32.0) pg MCHC 35.1 (31.0-37.0) g/dL RDW Std Deviation 44.6 (28.0-62.0) fl RDW Coeff of Miranda 14 (11.0-15.0) % Plt Count 262 (150-400) K/uL MPV 9.00 (7.40-12.00) fL Neut % (Auto) 67.1 (48.0-80.0) % Lymph % (Auto) 14.4 L (16.0-40.0) % [place] % (Auto) 17.9 H (0.0-15.0) % Eos % (Auto) 0.3 (0.0-7.0) % Baso % (Auto) 0.3 (0.0-1.5) % Neut # (Auto) 4.1 (1.4-5.7) K/uL Lymph # (Auto) 0.9 (0.6-2.4) K/uL [place] # (Auto) 1.1 H (0.0-0.8) K/uL Eos # (Auto) 0.0 (0.0-0.7) K/uL Baso # (Auto) 0.0 (0.0-0.1) K/uL Nucleated RBC % 0.0 /100WBC Nucleated RBCs # 0 K/uL Sodium 141 (136-145) mmol/L Potassium 3.7 (3.5-5.1) mmol/L Chloride 102 (98-107) mmol/L Carbon Dioxide 23.2 (21.0-32.0) mmol/L BUN 23 H (7.0-18.0) mg/dL Creatinine 0.8 (0.6-1.0) mg/dL Est Cr Clr Drug Dosing 38.94 mL/min Estimated GFR (MDRD) > 60.0 ml/min Glucose 101 (74-106) mg/dL Calcium 8.0 L (8.5-10.1) mg/dL Magnesium 2.5 H (1.8-2.4) mg/dL Total Bilirubin 0.5 (0.2-1.0) mg/dL AST 47 H (15-37) IU/L ALT 47 (14-63) IU/L Alkaline Phosphatase 54 (46-116) U/L Total Protein 7.5 (6.4-8.2) g/dL Albumin 3.8 (3.4-5.0) g/dL Globulin 3.7 (2.6-4.0) g/dL Albumin/Globulin Ratio 1.0 (0.9-1.6) Meds: Medications Generic Name Dose Route Start Last Admin Trade Name Freq PRN Reason Stop Dose Admin Sodium Chloride 10 ml 09/09/20 16:06 09/09/20 16:36 Sodium Chloride 0.9% 10 Ml Syringe FLUSH 10 ml ASDIRECTED PRN Administration Keep Vein Open Sodium Chloride 2.5 ml 09/09/20 16:06 09/09/20 16:36 Sodium Chloride 0.9% 2.5 Ml Syringe FLUSH 2.5 ml ASDIRECTED PRN Administration Keep Vein Open Discontinued Medications Generic Name Dose Route Start Last Admin Trade Name Freq PRN Reason Stop Dose Admin Lactated Ringer's 1,000 mls @ 999 mls/hr 09/09/20 16:07 09/09/20 16:34 Ringers, Lactated IV 09/09/20 17:07 999 mls/hr .BOLUS ONE Administration Departure - Departure Time of Disposition: 17:13 Disposition: Refer to Observation Condition: Fair Clinical Impression: Rotaviral gastroenteritis - Discharge Information *PRESCRIPTION DRUG MONITORING PROGRAM REVIEWED*: Not Applicable *COPY OF PRESCRIPTION DRUG MONITORING REPORT IN PATIENT DAVID: Not Applicable Referrals: PCP,None [Primary Care Provider] - Forms: ED Department Discharge Sepsis Event Note (ED) - Evaluation Sepsis Screening Result: No Definite Risk - Focused Exam Vital Signs: Vital Signs Temp Pulse Resp BP Pulse Ox 09/09/20 15:58 97.2 F 87 20 140/80 97 - My Orders Last 24 Hours: My Active Orders 09/09/20 16:06 Sodium Chloride 0.9% [Saline Flush] 10 ml FLUSH ASDIRECTED PRN Sodium Chloride 0.9% [Saline Flush] 2.5 ml FLUSH ASDIRECTED PRN Saline Lock Insert [OM.PC] Stat 09/09/20 16:13 CORONAVIRUS COVID-19 CORINNE [MOLEC] Stat - Assessment/Plan Last 24 Hours: My Active Orders 09/09/20 16:06 Sodium Chloride 0.9% [Saline Flush] 10 ml FLUSH ASDIRECTED PRN Sodium Chloride 0.9% [Saline Flush] 2.5 ml FLUSH ASDIRECTED PRN Saline Lock Insert [OM.PC] Stat 09/09/20 16:13 CORONAVIRUS COVID-19 CORINNE [MOLEC] Stat Assessment:: 80-year-old female who is clearly clinically quite dehydrated presenting with signs and symptoms that are consistent with her known rotavirus infection. Labs will be ordered to assess for renal insufficiency and electrolyte abnormality IV Zofran and hydration with lactated Ringer's has been ordered as well. Given patient's age and the severity of her symptoms I think it likely the patient will require admission for ongoing hydration inpatient treatment unless she has a significant symptomatic recovery her labs are normal. Given the positive rotavirus in her stool test I do not have a clinical concern for diverticulitis appendicitis or other acute intra-abdominal process. Nor do I have a concern for Covid. However, by policy we will need to test her for admission. 1711: Pt's labs are actually better than expected. She is without severe ADRIENNE or electrolyte problems. However, she continues to be lightheaded, dizzy and unable to take significant PO. Given this patient discussed with Dr. Hanna and will refer for observation and IVF.
[2020-09-09 16:49] LABS: BLOOD UREA NITROGEN,BUN 23 mg/dL (7.0-18.0); CARBON DIOXIDE,CO2 23.2 mmol/L (21.0-32.0); CHLORIDE,CL 102 mmol/L (98-107); GLUCOSE RANDOM 101 mg/dL (74-106); POTASSIUM,K 3.7 mmol/L (3.5-5.1); SODIUM,NA 141 mmol/L (136-145)
[2020-09-09] MEDS ORDERED: Promethazine 25 MG/ML SDV IM PRN (21:49)
[2020-09-09] MEDS: Sodium Chloride 0.9% 1,000 ML IV SCH (22:19)
[2020-09-09] MEDS ORDERED: Levothyroxine 25 MCG Tab PO SCH (23:45)
[2020-09-09] MEDS ORDERED: Sodium Chloride 0.9% 1,000 ML IV ONE (23:57)
--- NOTE | 2020-09-10 00:06 | PCM.HP.2 ---
H&P History of Present Illness - General Date of Service: 09/09/20 Admit Problem/Dx: Admission Diagnosis/Problem Admission Diagnosis/Problem Rotavirus infection - History of Present Illness Initial Comments - Free Text/Narative: 80 yo male with pmh of hypothyrodisim, and sarcoidosis who presented with 4 day history of diarrhea. Patient reports green watery diarrhea. She also has not eating much due to nausea and vomiting. She reported eating a breakfast burrito which she shared with her son. Both got sick the following morning. Her boyfriend was hospitalized with C.diff two weeks ago. She had seen Dr. Schofield who sent stool samples which were positive for rotavirus, and negative for C.diff. Upper Abdomen Pain Score (Numeric/FACES): 10 - Related Data Allergies/Adverse Reactions: Allergies Allergy/AdvReac Type Severity Reaction Status Date / Time diclofenac sodium Allergy Intermediate Nausea and Verified 09/09/20 20:09 [From Voltaren] Vomiting adhesive Allergy Rash Verified 09/09/20 20:09 aspirin Allergy Hives Verified 09/09/20 20:09 baclofen Allergy Cannot Verified 09/09/20 20:09 Remember calcium Allergy Nausea and Verified 09/09/20 20:09 Vomiting calcium chloride Allergy Hives Verified 09/09/20 20:09 cephalexin [From Keflex] Allergy Headache Verified 09/09/20 20:09 codeine Allergy Headache Verified 09/09/20 20:09 colistimethate sodium Allergy Rash Verified 09/09/20 20:09 [From Coly-Mycin M] erythromycin base Allergy Hives Verified 09/09/20 20:09 [Erythromycin Base] fluticasone [From Flonase] Allergy Itching Verified 09/09/20 20:09 gabapentin Allergy Chest Pain Verified 09/09/20 20:09 latex Allergy Hives Verified 09/09/20 20:09 levofloxacin Allergy Cannot Verified 09/09/20 20:09 Remember meloxicam Allergy Nausea and Verified 09/09/20 20:09 Vomiting naproxen [From Naprosyn] Allergy Nausea and Verified 09/09/20 20:09 Vomiting NSAIDS (Non-Steroidal Allergy Rash Verified 09/09/20 20:09 Anti-Inflamma nystatin Allergy Itching Verified 09/09/20 20:09 ondansetron [From Zofran] Allergy Headache Verified 09/09/20 20:09 oxycodone Allergy Headache Verified 09/09/20 20:09 propoxyphene [From Darvon] Allergy Rash Verified 09/09/20 20:09 propoxyphene HCl Allergy Nausea and Verified 09/09/20 20:09 [From Darvon] Vomiting salicylates Allergy Cannot Verified 09/09/20 20:09 Remember shellfish derived Allergy Rash Verified 09/09/20 20:09 sulindac Allergy Nausea and Verified 09/09/20 20:09 Vomiting tamsulosin Allergy Rash Verified 09/09/20 20:09 tramadol Allergy Nausea and Verified 09/09/20 20:09 Vomiting tramadol HCl [From Ultram] Allergy Nausea and Verified 09/09/20 20:09 Vomiting umeclidinium Allergy Nausea Verified 09/09/20 20:09 [From Anoro Ellipta] valacyclovir [From Valtrex] Allergy Rash Verified 09/09/20 20:09 vilanterol Allergy Nausea Verified 09/09/20 20:09 [From Anoro Ellipta] naproxen Allergy Rash Uncoded 09/09/20 20:09 propoxyphene Allergy Nausea and Uncoded 09/09/20 20:09 Vomiting Home Medications: Home Meds Levothyroxine Sodium [Synthroid] 50 mcg PO SUTUTHSA 08/31/13 [History] Acyclovir 400 mg PO TID PRN 02/08/18 [History] Esomeprazole Magnesium [Nexium] 40 mg PO DAILY 10/14/18 [History] Levothyroxine Sodium [Euthyrox] 25 mcg PO MOWEFR 10/14/18 [History] Multivitamin/Iron/Folic Acid [Centrum Adults Tablet] 1 tab PO DAILY 10/14/18 [History] predniSONE 10 mg PO BID 10/14/18 [History] Acetaminophen [Acetaminophen Extra Strength] 500 - 1,000 mg PO Q6H PRN #30 tablet 02/20/20 [Rx] NIFEdipine [Nifedipine ER] 30 mg PO DAILY 02/23/20 [History] Triazolam 0.125 mg PO BEDTIME 02/23/20 [History] Lidocaine 5% [Lidoderm 5%] 1 patch TOP DAILY #7 patch 08/13/20 [Rx] Past Medical History HEENT History: Reports: Cataract, Other (See Below) Other HEENT History: had cataract surgery on 06/04/19, wears reading glasses Cardiovascular History: Reports: Arrhythmia Other Cardiovascular History: has been told she has an arrythmia Respiratory History: Reports: Other (See Below) Other Respiratory History: has Sarcoid lungs Gastrointestinal History: Reports: GERD Genitourinary History: Reports: Renal Calculus 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 Surgery was cancelled and done the next day. States she was not asleep when a MEDICAL RESEARCH SCIENTIST surgery was started. Immunologic History: Reports: Immunosuppression Oncologic (Cancer) History: Reports: None Dermatologic History: Reports: Other (See Below) Other Dermatologic History: hx of cold sores - Infectious Disease History Infectious Disease History: Reports: None, Mumps - Past Surgical History Head Surgeries/Procedures: Reports: None HEENT Surgical History: Reports: Cataract Surgery, Tonsillectomy Cardiovascular Surgical History: Reports: Varicose Other Cardiovascular Surgeries/Procedures: varicose vein ligation because of blood clot in vein GI Surgical History: Reports: Appendectomy, Cholecystectomy Female Surgical History: Reports: Breast Biopsy, Hysterectomy, Lithotripsy/ESWL, Salpingo-Oophorectomy, Tubal Ligation Neurological Surgical History: Reports: C-Spine Musculoskeletal Surgical History: Reports: Other (See Below) Other Musculoskeletal Surgeries/Procedures:: bunionectomy right foot, closed reduction right wrist Oncologic Surgical History: Reports: Lumpectomy Social & Family History - Family History Family Medical History: No Pertinent Family History - Tobacco Use Tobacco Use Status *Q: Former Tobacco User Used Tobacco, but Quit: Yes Month/Year Tobacco Last Used: 1981 - Caffeine Use Caffeine Use: Reports: Tea - Recreational Drug Use Recreational Drug Use: No H&P Review of Systems - Review of Systems: Review Of Systems: Comprehensive ROS is negative, except as noted in HPI. Exam - Exam Exam: See Below - Vital Signs Vital Signs: Last Vital Signs Temp 36.9 C 09/09/20 19:55 Pulse 72 09/09/20 19:55 Resp 20 09/09/20 19:55 BP 130/52 L 09/09/20 19:55 Pulse Ox 98 09/09/20 19:55 Weight: 49.579 kg - Exam General: Alert, Oriented HEENT: Mucosa Moist & [place] Neck: Supple, Trachea Midline Lungs: Clear to Auscultation, Normal Respiratory Effort Cardiovascular: Regular Rate, Regular Rhythm GI/Abdominal Exam: Normal Bowel Sounds, Soft, Non-Tender Extremities: Non-Tender, No Pedal Edema Skin: Warm, Dry, Intact Neurological: No: Focal Deficit - Patient Data Lab Results Last 24 hrs: Laboratory Results - last 24 hr 09/09/20 09/09/20 09/09/20 Range/Units 16:00 16:00 17:18 WBC 6.16 (4.0-11.0) K/uL RBC 4.64 (4.30-5.90) M/uL Hgb 14.9 (12.0-16.0) g/dL Hct 42.5 (36.0-46.0) % MCV 91.6 (80.0-98.0) fL MCH 32.1 H (27.0-32.0) pg MCHC 35.1 (31.0-37.0) g/dL RDW Std Deviation 44.6 (28.0-62.0) fl RDW Coeff of Miranda 14 (11.0-15.0) % Plt Count 262 (150-400) K/uL MPV 9.00 (7.40-12.00) fL Neut % (Auto) 67.1 (48.0-80.0) % Lymph % (Auto) 14.4 L (16.0-40.0) % [place] % (Auto) 17.9 H (0.0-15.0) % Eos % (Auto) 0.3 (0.0-7.0) % Baso % (Auto) 0.3 (0.0-1.5) % Neut # (Auto) 4.1 (1.4-5.7) K/uL Lymph # (Auto) 0.9 (0.6-2.4) K/uL [place] # (Auto) 1.1 H (0.0-0.8) K/uL Eos # (Auto) 0.0 (0.0-0.7) K/uL Baso # (Auto) 0.0 (0.0-0.1) K/uL Nucleated RBC % 0.0 /100WBC Nucleated RBCs # 0 K/uL Sodium 141 (136-145) mmol/L Potassium 3.7 (3.5-5.1) mmol/L Chloride 102 (98-107) mmol/L Carbon Dioxide 23.2 (21.0-32.0) mmol/L BUN 23 H (7.0-18.0) mg/dL Creatinine 0.8 (0.6-1.0) mg/dL Est Cr Clr Drug Dosing 38.94 mL/min Estimated GFR (MDRD) > 60.0 ml/min Glucose 101 (74-106) mg/dL Calcium 8.0 L (8.5-10.1) mg/dL Magnesium 2.5 H (1.8-2.4) mg/dL Total Bilirubin 0.5 (0.2-1.0) mg/dL AST 47 H (15-37) IU/L ALT 47 (14-63) IU/L Alkaline Phosphatase 54 (46-116) U/L Total Protein 7.5 (6.4-8.2) g/dL Albumin 3.8 (3.4-5.0) g/dL Globulin 3.7 (2.6-4.0) g/dL Albumin/Globulin Ratio 1.0 (0.9-1.6) SARS-CoV-2 RNA (CROINNE) NEGATIVE (NEGATIVE) Result Diagrams: 09/10/20 05:33 09/10/20 05:33 Sepsis Event Note - Evaluation Sepsis Screening Result: No Definite Risk - Focused Exam Vital Signs: Vital Signs Temp Pulse Resp BP Pulse Ox 09/09/20 19:55 36.9 C 72 20 130/52 L 98 09/09/20 19:23 79 127/68 95 09/09/20 18:53 79 132/70 96 09/09/20 18:23 78 129/72 94 L 09/09/20 17:53 78 122/67 98 09/09/20 17:23 78 124/70 96 09/09/20 16:50 86 116/68 96 09/09/20 16:23 113/77 96 09/09/20 15:58 36.2 C 87 20 140/80 97 Problem List Initiated/Reviewed/Updated: Yes Orders Last 24hrs: Active Orders 24 hr Category Date Time Status Patient Status [ADT] Routine ADT 09/09/20 17:13 Active Regular Diet [DIET] Diet 09/10/20 Breakfast Active Esomeprazole Magnesium [Nexium] Med 09/10/20 09:00 Ordered 40 mg PO DAILY Levothyroxine Med 09/09/20 23:45 Ordered 50 mcg PO SUTUTHSA Levothyroxine [Synthroid] Med 09/11/20 23:50 Ordered 25 mcg PO MOWEFR NIFEdipine [Procardia XL] Med 09/10/20 09:00 Ordered 30 mg PO DAILY Promethazine [Phenergan] Med 09/09/20 21:49 Active 25 mg IM Q8H PRN Sodium Chloride 0.9% [Normal Saline] 1,000 ml Med 09/09/20 23:57 Ordered IV .Bolus Sodium Chloride 0.9% [Normal Saline] 1,000 ml Med 09/09/20 22:00 Active IV ASDIRECTED Sodium Chloride 0.9% [Saline Flush] Med 09/09/20 16:06 Active 10 ml FLUSH ASDIRECTED PRN Sodium Chloride 0.9% [Saline Flush] Med 09/09/20 16:06 Active 2.5 ml FLUSH ASDIRECTED PRN Triazolam Med 09/10/20 21:00 Ordered 0.125 mg PO BEDTIME predniSONE Med 09/10/20 09:00 Ordered 10 mg PO BID Saline Lock Insert [OM.PC] Stat Oth 09/09/20 16:06 Ordered Medication Orders Sodium Chloride (Normal Saline) 1,000 mls @ 125 mls/hr IV ASDIRECTED ENIO Last Admin: 09/09/20 22:19 Dose: 125 mls/hr Documented by: ALBIMAR Sodium Chloride (Normal Saline) 1,000 mls @ 999 mls/hr IV .Bolus ONE Stop: 09/10/20 00:57 Levothyroxine Sodium (Levothyroxine 25 Mcg Tab) 50 mcg PO SUTUTHSA ENIO Levothyroxine Sodium (Levothyroxine 50 Mcg Tab) 25 mcg PO MOWEFR ENIO Nifedipine (Nifedipine 30 Mg Tab.Er) 30 mg PO DAILY ENIO Non-Formulary Medication (Esomeprazole Magnesium [Nexium]) 40 mg PO DAILY ENIO Non-Formulary Medication (Triazolam) 0.125 mg PO BEDTIME ENIO Prednisone (Prednisone 10 Mg Tab) 10 mg PO BID ENIO Promethazine HCl (Promethazine 25 Mg/Ml Sdv) 25 mg IM Q8H PRN PRN Reason: Nausea/Vomiting Sodium Chloride (Sodium Chloride 0.9% 10 Ml Syringe) 10 ml FLUSH ASDIRECTED PRN PRN Reason: Keep Vein Open Last Admin: 09/09/20 16:36 Dose: 10 ml Documented by: RUPERT Sodium Chloride (Sodium Chloride 0.9% 2.5 Ml Syringe) 2.5 ml FLUSH ASDIRECTED PRN PRN Reason: Keep Vein Open Last Admin: 09/09/20 16:36 Dose: 2.5 ml Documented by: RUPERT Assessment/Plan Comment:: 80 yo female admitted for viral gastroenteritis. We will treat supportively with IV fluids and antiemetics. We will advance diet as tolerated.
[2020-09-10 06:13] LABS: BLOOD UREA NITROGEN,BUN 12 mg/dL (7.0-18.0); CARBON DIOXIDE,CO2 24.4 mmol/L (21.0-32.0); CHLORIDE,CL 107 mmol/L (98-107); GLUCOSE RANDOM 68 mg/dL (74-106); POTASSIUM,K 3.3 mmol/L (3.5-5.1); SODIUM,NA 142 mmol/L (136-145)
[2020-09-10] MEDS: Levothyroxine 25 MCG Tab PO SCH (06:43)
[2020-09-10] MEDS: Pantoprazole 40 MG Tab.CR PO SCH (09:34)
[2020-09-10] MEDS: NIFEdipine 30 MG Tab.ER PO SCH (09:37)
[2020-09-10] MEDS: predniSONE 10 MG Tab PO SCH ×3 (09:38→21:17)
[2020-09-10] MEDS: Sodium Chloride 0.9% 1,000 ML IV SCH ×2 (09:40→17:04)
--- NOTE | 2020-09-10 12:43 | PCM.PN ---
- General Info Date of Service: 09/10/20 - Review of Systems Systems Review Comment:: diarrhea has improved, ate her usual breakfast, still having indigestion. - Patient Data Vitals - Most Recent: Last Vital Signs Temp 36.8 C 09/10/20 11:34 Pulse 78 09/10/20 11:34 Resp 15 09/10/20 11:34 BP 123/75 09/10/20 11:34 Pulse Ox 95 09/10/20 11:34 Weight - Most Recent: 49.579 kg I&O - Last 24 Hours: Intake & Output 09/09/20 09/10/20 09/10/20 22:59 06:59 14:59 Intake Total 1352 Output Total 300 Balance 1052 Lab Results Last 24 Hours: Laboratory Results - last 24 hr 09/09/20 09/09/20 09/09/20 Range/Units 16:00 16:00 17:18 WBC 6.16 (4.0-11.0) K/uL RBC 4.64 (4.30-5.90) M/uL Hgb 14.9 (12.0-16.0) g/dL Hct 42.5 (36.0-46.0) % MCV 91.6 (80.0-98.0) fL MCH 32.1 H (27.0-32.0) pg MCHC 35.1 (31.0-37.0) g/dL RDW Std Deviation 44.6 (28.0-62.0) fl RDW Coeff of Miranda 14 (11.0-15.0) % Plt Count 262 (150-400) K/uL MPV 9.00 (7.40-12.00) fL Neut % (Auto) 67.1 (48.0-80.0) % Lymph % (Auto) 14.4 L (16.0-40.0) % [place] % (Auto) 17.9 H (0.0-15.0) % Eos % (Auto) 0.3 (0.0-7.0) % Baso % (Auto) 0.3 (0.0-1.5) % Neut # (Auto) 4.1 (1.4-5.7) K/uL Lymph # (Auto) 0.9 (0.6-2.4) K/uL [place] # (Auto) 1.1 H (0.0-0.8) K/uL Eos # (Auto) 0.0 (0.0-0.7) K/uL Baso # (Auto) 0.0 (0.0-0.1) K/uL Nucleated RBC % 0.0 /100WBC Nucleated RBCs # 0 K/uL Sodium 141 (136-145) mmol/L Potassium 3.7 (3.5-5.1) mmol/L Chloride 102 (98-107) mmol/L Carbon Dioxide 23.2 (21.0-32.0) mmol/L BUN 23 H (7.0-18.0) mg/dL Creatinine 0.8 (0.6-1.0) mg/dL Est Cr Clr Drug Dosing 38.94 mL/min Estimated GFR (MDRD) > 60.0 ml/min Glucose 101 (74-106) mg/dL Calcium 8.0 L (8.5-10.1) mg/dL Magnesium 2.5 H (1.8-2.4) mg/dL Total Bilirubin 0.5 (0.2-1.0) mg/dL AST 47 H (15-37) IU/L ALT 47 (14-63) IU/L Alkaline Phosphatase 54 (46-116) U/L Total Protein 7.5 (6.4-8.2) g/dL Albumin 3.8 (3.4-5.0) g/dL Globulin 3.7 (2.6-4.0) g/dL Albumin/Globulin Ratio 1.0 (0.9-1.6) SARS-CoV-2 RNA (CORINNE) NEGATIVE (NEGATIVE) 09/10/20 09/10/20 Range/Units 05:33 05:33 WBC 4.43 (4.0-11.0) K/uL RBC 3.93 L (4.30-5.90) M/uL Hgb 12.3 (12.0-16.0) g/dL Hct 36.3 (36.0-46.0) % MCV 92.4 (80.0-98.0) fL MCH 31.3 (27.0-32.0) pg MCHC 33.9 (31.0-37.0) g/dL RDW Std Deviation 45.4 (28.0-62.0) fl RDW Coeff of Miranda 13 (11.0-15.0) % Plt Count 231 (150-400) K/uL MPV 8.70 (7.40-12.00) fL Neut % (Auto) 63.6 (48.0-80.0) % Lymph % (Auto) 17.4 (16.0-40.0) % [place] % (Auto) 17.8 H (0.0-15.0) % Eos % (Auto) 0.7 (0.0-7.0) % Baso % (Auto) 0.5 (0.0-1.5) % Neut # (Auto) 2.8 (1.4-5.7) K/uL Lymph # (Auto) 0.8 (0.6-2.4) K/uL [place] # (Auto) 0.8 (0.0-0.8) K/uL Eos # (Auto) 0.0 (0.0-0.7) K/uL Baso # (Auto) 0.0 (0.0-0.1) K/uL Nucleated RBC % 0.0 /100WBC Nucleated RBCs # 0 K/uL Sodium 142 (136-145) mmol/L Potassium 3.3 L (3.5-5.1) mmol/L Chloride 107 (98-107) mmol/L Carbon Dioxide 24.4 (21.0-32.0) mmol/L BUN 12 (7.0-18.0) mg/dL Creatinine 0.6 (0.6-1.0) mg/dL Est Cr Clr Drug Dosing 51.92 mL/min Estimated GFR (MDRD) > 60.0 ml/min Glucose 68 L (74-106) mg/dL Calcium 6.2 L (8.5-10.1) mg/dL Magnesium 2.0 (1.8-2.4) mg/dL Total Bilirubin 0.5 (0.2-1.0) mg/dL AST 34 (15-37) IU/L ALT 35 (14-63) IU/L Alkaline Phosphatase 41 L (46-116) U/L Total Protein 5.5 L (6.4-8.2) g/dL Albumin 2.8 L (3.4-5.0) g/dL Globulin 2.7 (2.6-4.0) g/dL Albumin/Globulin Ratio 1.0 (0.9-1.6) SARS-CoV-2 RNA (CORINNE) (NEGATIVE) Med Orders - Current: Current Medications Sodium Chloride (Normal Saline) 1,000 mls @ 125 mls/hr IV ASDIRECTED [facility] Last Admin: 09/10/20 09:40 Dose: 125 mls/hr Documented by: Levothyroxine Sodium (Levothyroxine 25 Mcg Tab) 50 mcg PO SUTUTHSA [facility] Last Admin: 09/10/20 06:43 Dose: 50 mcg Documented by: Levothyroxine Sodium (Levothyroxine 50 Mcg Tab) 25 mcg PO MOWEFR [facility] Nifedipine (Nifedipine 30 Mg Tab.Er) 30 mg PO DAILY [facility] Last Admin: 09/10/20 09:37 Dose: 30 mg Documented by: Pantoprazole Sodium (Pantoprazole 40 Mg Tab.Cr) 40 mg PO DAILY [facility] Last Admin: 09/10/20 09:34 Dose: 40 mg Documented by: Triazolam 0.125 Mg (Tablet) 1 each PO BEDTIME [facility] Prednisone (Prednisone 10 Mg Tab) 10 mg PO BID [facility] Last Admin: 09/10/20 10:13 Dose: 10 mg Documented by: Promethazine HCl (Promethazine 25 Mg/Ml Sdv) 25 mg IM Q8H PRN PRN Reason: Nausea/Vomiting Last Admin: 09/10/20 11:30 Dose: 25 mg Documented by: Sodium Chloride (Sodium Chloride 0.9% 10 Ml Syringe) 10 ml FLUSH ASDIRECTED PRN PRN Reason: Keep Vein Open Last Admin: 09/09/20 16:36 Dose: 10 ml Documented by: Sodium Chloride (Sodium Chloride 0.9% 2.5 Ml Syringe) 2.5 ml FLUSH ASDIRECTED PRN PRN Reason: Keep Vein Open Last Admin: 09/09/20 16:36 Dose: 2.5 ml Documented by: Discontinued Medications Lactated Ringer's (Ringers, Lactated) 1,000 mls @ 999 mls/hr IV .BOLUS ONE Stop: 09/09/20 17:07 Last Admin: 09/09/20 16:34 Dose: 999 mls/hr Documented by: Sodium Chloride (Normal Saline) 1,000 mls @ 999 mls/hr IV .Bolus ONE Stop: 09/10/20 00:57 Last Admin: 09/10/20 00:28 Dose: 999 mls/hr Documented by: Levothyroxine Sodium (Levothyroxine 25 Mcg Tab) 50 mcg PO [facility] Last Admin: 09/10/20 01:03 Dose: Not Given Documented by: Levothyroxine Sodium (Levothyroxine 50 Mcg Tab) [facility] - Exam General: Alert, Oriented Neck: Supple Lungs: Clear to Auscultation, Normal Respiratory Effort Cardiovascular: Regular Rate, Regular Rhythm GI/Abdominal Exam: Soft, Non-Tender, No Distention Extremities: Non-Tender, No Pedal Edema Skin: Warm, Dry, Intact Neurological: No New Focal Deficit - Patient Data Lab Results Last 24 hrs: Laboratory Results - last 24 hr 09/09/20 09/09/20 09/09/20 Range/Units 16:00 16:00 17:18 WBC 6.16 (4.0-11.0) K/uL RBC 4.64 (4.30-5.90) M/uL Hgb 14.9 (12.0-16.0) g/dL Hct 42.5 (36.0-46.0) % MCV 91.6 (80.0-98.0) fL MCH 32.1 H (27.0-32.0) pg MCHC 35.1 (31.0-37.0) g/dL RDW Std Deviation 44.6 (28.0-62.0) fl RDW Coeff of Miranda 14 (11.0-15.0) % Plt Count 262 (150-400) K/uL MPV 9.00 (7.40-12.00) fL Neut % (Auto) 67.1 (48.0-80.0) % Lymph % (Auto) 14.4 L (16.0-40.0) % [place] % (Auto) 17.9 H (0.0-15.0) % Eos % (Auto) 0.3 (0.0-7.0) % Baso % (Auto) 0.3 (0.0-1.5) % Neut # (Auto) 4.1 (1.4-5.7) K/uL Lymph # (Auto) 0.9 (0.6-2.4) K/uL [place] # (Auto) 1.1 H (0.0-0.8) K/uL Eos # (Auto) 0.0 (0.0-0.7) K/uL Baso # (Auto) 0.0 (0.0-0.1) K/uL Nucleated RBC % 0.0 /100WBC Nucleated RBCs # 0 K/uL Sodium 141 (136-145) mmol/L Potassium 3.7 (3.5-5.1) mmol/L Chloride 102 (98-107) mmol/L Carbon Dioxide 23.2 (21.0-32.0) mmol/L BUN 23 H (7.0-18.0) mg/dL Creatinine 0.8 (0.6-1.0) mg/dL Est Cr Clr Drug Dosing 38.94 mL/min Estimated GFR (MDRD) > 60.0 ml/min Glucose 101 (74-106) mg/dL Calcium 8.0 L (8.5-10.1) mg/dL Magnesium 2.5 H (1.8-2.4) mg/dL Total Bilirubin 0.5 (0.2-1.0) mg/dL AST 47 H (15-37) IU/L ALT 47 (14-63) IU/L Alkaline Phosphatase 54 (46-116) U/L Total Protein 7.5 (6.4-8.2) g/dL Albumin 3.8 (3.4-5.0) g/dL Globulin 3.7 (2.6-4.0) g/dL Albumin/Globulin Ratio 1.0 (0.9-1.6) SARS-CoV-2 RNA (CORINNE) NEGATIVE (NEGATIVE) 09/10/20 09/10/20 Range/Units 05:33 05:33 WBC 4.43 (4.0-11.0) K/uL RBC 3.93 L (4.30-5.90) M/uL Hgb 12.3 (12.0-16.0) g/dL Hct 36.3 (36.0-46.0) % MCV 92.4 (80.0-98.0) fL MCH 31.3 (27.0-32.0) pg MCHC 33.9 (31.0-37.0) g/dL RDW Std Deviation 45.4 (28.0-62.0) fl RDW Coeff of Miranda 13 (11.0-15.0) % Plt Count 231 (150-400) K/uL MPV 8.70 (7.40-12.00) fL Neut % (Auto) 63.6 (48.0-80.0) % Lymph % (Auto) 17.4 (16.0-40.0) % [place] % (Auto) 17.8 H (0.0-15.0) % Eos % (Auto) 0.7 (0.0-7.0) % Baso % (Auto) 0.5 (0.0-1.5) % Neut # (Auto) 2.8 (1.4-5.7) K/uL Lymph # (Auto) 0.8 (0.6-2.4) K/uL [place] # (Auto) 0.8 (0.0-0.8) K/uL Eos # (Auto) 0.0 (0.0-0.7) K/uL Baso # (Auto) 0.0 (0.0-0.1) K/uL Nucleated RBC % 0.0 /100WBC Nucleated RBCs # 0 K/uL Sodium 142 (136-145) mmol/L Potassium 3.3 L (3.5-5.1) mmol/L Chloride 107 (98-107) mmol/L Carbon Dioxide 24.4 (21.0-32.0) mmol/L BUN 12 (7.0-18.0) mg/dL Creatinine 0.6 (0.6-1.0) mg/dL Est Cr Clr Drug Dosing 51.92 mL/min Estimated GFR (MDRD) > 60.0 ml/min Glucose 68 L (74-106) mg/dL Calcium 6.2 L (8.5-10.1) mg/dL Magnesium 2.0 (1.8-2.4) mg/dL Total Bilirubin 0.5 (0.2-1.0) mg/dL AST 34 (15-37) IU/L ALT 35 (14-63) IU/L Alkaline Phosphatase 41 L (46-116) U/L Total Protein 5.5 L (6.4-8.2) g/dL Albumin 2.8 L (3.4-5.0) g/dL Globulin 2.7 (2.6-4.0) g/dL Albumin/Globulin Ratio 1.0 (0.9-1.6) SARS-CoV-2 RNA (CORINNE) (NEGATIVE) Result Diagrams: 09/10/20 05:33 09/10/20 05:33 Sepsis Event Note - Evaluation Sepsis Screening Result: No Definite Risk - Focused Exam Vital Signs: Vital Signs Temp Pulse Resp BP BP Pulse Ox 09/10/20 11:34 36.8 C 78 15 123/75 95 09/10/20 11:01 79 125/73 97 09/10/20 09:37 119/86 09/10/20 08:00 36.6 C 68 18 119/67 94 L 09/10/20 03:27 37.0 C 76 18 127/71 95 - Problem List Review Problem List Initiated/Reviewed/Updated: Yes - My Orders Last 24 Hours: My Active Orders 09/09/20 21:49 Promethazine [Phenergan] 25 mg IM Q8H PRN 09/09/20 22:00 Sodium Chloride 0.9% [Normal Saline] 1,000 ml IV ASDIRECTED 09/10/20 00:20 Oxygen Therapy [RC] PRN Up ad Lynn [RC] ASDIRECTED VTE/DVT Education [RC] PER UNIT ROUTINE Vital Signs [RC] Q4H Resuscitation Status Routine 09/10/20 00:21 Antiembolic Devices [RC] PER UNIT ROUTINE Sequential Compression Device [OM.PC] Per Unit Routine 09/10/20 06:00 Levothyroxine 50 mcg PO SUTUTHSA 09/10/20 Breakfast Regular Diet [DIET] 09/10/20 09:00 NIFEdipine [Procardia XL] 30 mg PO DAILY Pantoprazole [ProTONIX] 40 mg PO DAILY predniSONE 10 mg PO BID 09/10/20 21:00 Patient's Own Medication [Ptom] 1 each PO BEDTIME 09/11/20 06:00 Levothyroxine [Synthroid] 25 mcg PO MOWEFR - Plan Plan:: 80 yo female admitted for viral gastroenteritis. We will continue to treat supportively with IV fluids and antiemetics. We will advance diet as tolerated.
[2020-09-10] MEDS ORDERED: Acyclovir 200 MG Cap PO PRN (18:33)
[2020-09-11] MEDS ORDERED: Loperamide 2 MG Cap PO ONE (02:53)
[2020-09-11] MEDS: Sodium Chloride 0.9% 1,000 ML IV SCH ×2 (04:38→21:04)
[2020-09-11] MEDS ORDERED: Levothyroxine 50 MCG Tab PO SCH ×2 (06:00→23:50)
[2020-09-11 06:10] LABS: BLOOD UREA NITROGEN,BUN 9 mg/dL (7.0-18.0); CARBON DIOXIDE,CO2 23.8 mmol/L (21.0-32.0); CHLORIDE,CL 109 mmol/L (98-107); GLUCOSE RANDOM 122 mg/dL (74-106); POTASSIUM,K 3.3 mmol/L (3.5-5.1); SODIUM,NA 143 mmol/L (136-145)
[2020-09-11] MEDS ORDERED: Potassium Chloride 20 MEQ Tab.ER PO ONE (07:40)
[2020-09-11] MEDS: predniSONE 10 MG Tab PO SCH ×2 (08:23→21:03)
[2020-09-11] MEDS: Pantoprazole 40 MG Tab.CR PO SCH (09:00)
[2020-09-11] MEDS: NIFEdipine 30 MG Tab.ER PO SCH (09:00)
--- NOTE | 2020-09-11 11:54 | PCM.PN ---
- General Info Date of Service: 09/11/20 Subjective Update: Bedside: mentions feeling slightly better since being given the immodium this AM; appetite still low but no n/v/diarrhea since this AM Has felt a little dizzy while standing Functional Status: Reports: Pain Controlled - Review of Systems General: Denies: Appetite HEENT: Reports: No Symptoms Pulmonary: Reports: No Symptoms Cardiovascular: Reports: No Symptoms Gastrointestinal: Reports: Diarrhea. Denies: Abdominal Pain, Nausea, Vomiting Genitourinary: Reports: No Symptoms Musculoskeletal: Reports: No Symptoms Skin: Reports: No Symptoms Neurological: Reports: No Symptoms Psychiatric: Reports: No Symptoms - Patient Data Vitals - Most Recent: Last Vital Signs Temp 97.7 F 09/11/20 11:00 Pulse 73 09/11/20 11:00 Resp 15 09/11/20 11:00 BP 114/71 09/11/20 11:00 Pulse Ox 96 09/11/20 11:00 Weight - Most Recent: 49.579 kg I&O - Last 24 Hours: Intake & Output 09/10/20 09/11/20 09/11/20 22:59 06:59 14:59 Intake Total 1849 1480 Output Total 985 1000 Balance 864 480 Lab Results Last 24 Hours: Laboratory Results - last 24 hr 09/11/20 09/11/20 Range/Units 05:30 05:30 WBC 4.75 (4.0-11.0) K/uL RBC 3.87 L (4.30-5.90) M/uL Hgb 11.9 L (12.0-16.0) g/dL Hct 35.4 L (36.0-46.0) % MCV 91.5 (80.0-98.0) fL MCH 30.7 (27.0-32.0) pg MCHC 33.6 (31.0-37.0) g/dL RDW Std Deviation 44.6 (28.0-62.0) fl RDW Coeff of Miranda 13 (11.0-15.0) % Plt Count 227 (150-400) K/uL MPV 8.80 (7.40-12.00) fL Neut % (Auto) 76.7 (48.0-80.0) % Lymph % (Auto) 12.6 L (16.0-40.0) % Thomas % (Auto) 10.5 (0.0-15.0) % Eos % (Auto) 0.0 (0.0-7.0) % Baso % (Auto) 0.2 (0.0-1.5) % Neut # (Auto) 3.6 (1.4-5.7) K/uL Lymph # (Auto) 0.6 (0.6-2.4) K/uL Thomas # (Auto) 0.5 (0.0-0.8) K/uL Eos # (Auto) 0.0 (0.0-0.7) K/uL Baso # (Auto) 0.0 (0.0-0.1) K/uL Nucleated RBC % 0.0 /100WBC Nucleated RBCs # 0 K/uL Sodium 143 (136-145) mmol/L Potassium 3.3 L (3.5-5.1) mmol/L Chloride 109 H (98-107) mmol/L Carbon Dioxide 23.8 (21.0-32.0) mmol/L BUN 9 (7.0-18.0) mg/dL Creatinine 0.6 (0.6-1.0) mg/dL Est Cr Clr Drug Dosing 51.92 mL/min Estimated GFR (MDRD) > 60.0 ml/min Glucose 122 H (74-106) mg/dL Calcium 6.7 L (8.5-10.1) mg/dL Magnesium 2.0 (1.8-2.4) mg/dL Med Orders - Current: Current Medications Acyclovir (Acyclovir 200 Mg Cap) 400 mg PO TID PRN PRN Reason: Other Last Admin: 09/10/20 21:17 Dose: 400 mg Documented by: Sodium Chloride (Normal Saline) 1,000 mls @ 125 mls/hr IV ASDIRECTED [facility] Last Admin: 09/11/20 04:38 Dose: 125 mls/hr Documented by: Levothyroxine Sodium (Levothyroxine 25 Mcg Tab) [facility] Last Admin: 09/10/20 06:43 Dose: 50 mcg Documented by: Levothyroxine Sodium ([facility] 50 Mcg Tab) [facility] Last Admin: 09/11/20 05:42 Dose: 25 mcg Documented by: Nifedipine (Nifedipine 30 Mg Tab.Er) 30 mg PO DAILY [facility] Last Admin: 09/11/20 09:00 Dose: 30 mg Documented by: Pantoprazole Sodium (Pantoprazole 40 Mg Tab.Cr) 40 mg PO DAILY [facility] Last Admin: 09/11/20 09:00 Dose: 40 mg Documented by: Triazolam 0.125 Mg (Tablet) 1 each PO BEDTIME [facility] Last Admin: 09/10/20 21:17 Dose: Not Given Documented by: Prednisone (Prednisone 10 Mg Tab) 10 mg PO BID [facility] Last Admin: 09/11/20 08:23 Dose: 10 mg Documented by: Promethazine HCl (Promethazine 25 Mg/Ml Sdv) 25 mg IM Q8H PRN PRN Reason: Nausea/Vomiting Last Admin: 09/10/20 11:30 Dose: 25 mg Documented by: Sodium Chloride (Sodium Chloride 0.9% 10 Ml Syringe) 10 ml FLUSH ASDIRECTED PRN PRN Reason: Keep Vein Open Last Admin: 09/09/20 16:36 Dose: 10 ml Documented by: Sodium Chloride (Sodium Chloride 0.9% 2.5 Ml Syringe) 2.5 ml FLUSH ASDIRECTED PRN PRN Reason: Keep Vein Open Last Admin: 09/09/20 16:36 Dose: 2.5 ml Documented by: Discontinued Medications Lactated Ringer's (Ringers, Lactated) 1,000 mls @ 999 mls/hr IV .BOLUS ONE Stop: 09/09/20 17:07 Last Admin: 09/09/20 16:34 Dose: 999 mls/hr Documented by: Sodium Chloride (Normal Saline) 1,000 mls @ 999 mls/hr IV .Bolus ONE Stop: 09/10/20 00:57 Last Admin: 09/10/20 00:28 Dose: 999 mls/hr Documented by: Levothyroxine Sodium (Levothyroxine 25 Mcg Tab) 50 mcg PO SUTUTHSA [facility] Last Admin: 09/10/20 01:03 Dose: Not Given Documented by: Levothyroxine Sodium (Levothyroxine 50 Mcg Tab) [facility] Loperamide HCl (Loperamide 2 Mg Cap) 4 mg PO ONETIME ONE Stop: 09/11/20 02:54 Last Admin: 09/11/20 03:13 Dose: 4 mg Documented by: Potassium Chloride (Potassium Chloride 20 Meq Tab.Er) 40 meq PO ONETIME ONE Stop: 09/11/20 07:41 Last Admin: 09/11/20 08:22 Dose: 40 meq Documented by: - Exam Quality Assessment: No: Supplemental Oxygen General: Alert, Oriented, Cooperative, No Acute Distress HEENT: EOMI, Other (mildly dry ) Neck: Supple Lungs: Clear to Auscultation, Normal Respiratory Effort Cardiovascular: Regular Rate, Regular Rhythm GI/Abdominal Exam: Soft Skin: Warm Neurological: No New Focal Deficit, Other (appears unsteady while standing; no witnessed syncopal or near syncoapl episodes ) Psy/Mental Status: Alert, Normal Affect, Normal Mood - Patient Data Lab Results Last 24 hrs: Laboratory Results - last 24 hr 09/11/20 09/11/20 Range/Units 05:30 05:30 WBC 4.75 (4.0-11.0) K/uL RBC 3.87 L (4.30-5.90) M/uL Hgb 11.9 L (12.0-16.0) g/dL Hct 35.4 L (36.0-46.0) % MCV 91.5 (80.0-98.0) fL MCH 30.7 (27.0-32.0) pg MCHC 33.6 (31.0-37.0) g/dL RDW Std Deviation 44.6 (28.0-62.0) fl RDW Coeff of Miranda 13 (11.0-15.0) % Plt Count 227 (150-400) K/uL MPV 8.80 (7.40-12.00) fL Neut % (Auto) 76.7 (48.0-80.0) % Lymph % (Auto) 12.6 L (16.0-40.0) % Thomas % (Auto) 10.5 (0.0-15.0) % Eos % (Auto) 0.0 (0.0-7.0) % Baso % (Auto) 0.2 (0.0-1.5) % Neut # (Auto) 3.6 (1.4-5.7) K/uL Lymph # (Auto) 0.6 (0.6-2.4) K/uL Thomas # (Auto) 0.5 (0.0-0.8) K/uL Eos # (Auto) 0.0 (0.0-0.7) K/uL Baso # (Auto) 0.0 (0.0-0.1) K/uL Nucleated RBC % 0.0 /100WBC Nucleated RBCs # 0 K/uL Sodium 143 (136-145) mmol/L Potassium 3.3 L (3.5-5.1) mmol/L Chloride 109 H (98-107) mmol/L Carbon Dioxide 23.8 (21.0-32.0) mmol/L BUN 9 (7.0-18.0) mg/dL Creatinine 0.6 (0.6-1.0) mg/dL Est Cr Clr Drug Dosing 51.92 mL/min Estimated GFR (MDRD) > 60.0 ml/min Glucose 122 H (74-106) mg/dL Calcium 6.7 L (8.5-10.1) mg/dL Magnesium 2.0 (1.8-2.4) mg/dL Result Diagrams: 09/11/20 05:30 09/11/20 05:30 Sepsis Event Note - Evaluation Sepsis Screening Result: No Definite Risk - Focused Exam Vital Signs: Vital Signs Temp Pulse Resp BP BP Pulse Ox Pulse Ox 09/11/20 11:00 97.7 F 73 15 114/71 96 09/11/20 09:00 120/75 09/11/20 07:00 97.9 F 76 16 102/58 L 92 L 09/11/20 03:00 97.5 F 75 18 117/76 95 09/11/20 00:20 95 - Problem List Review Problem List Initiated/Reviewed/Updated: Yes - Plan Plan:: 1 Gastroenteritis 2. Dehydration secondary to above 3. PMH: hypothyroidism. HTN, sarcoidosis 4. Hypokalemia Plan Clinically pt improving w. IV fluids and slow reintroduction of PO diet; Mild dizziness noted in upright position Decrease in BM frequency since Imodium given this AM; continue to monitor Dizziness still appreciated; continue to hydrate and monitor for worsening diarrhea replete potassium 40 meq PO ; recheck BMP in AM
[2020-09-11] MEDS ORDERED: Enoxaparin 40 MG/0.4 ML Syringe SUBCUT SCH (14:00)
[2020-09-12] MEDS: Sodium Chloride 0.9% 1,000 ML IV SCH (05:16)
[2020-09-12 06:14] LABS: BLOOD UREA NITROGEN,BUN 6 mg/dL (7.0-18.0); CARBON DIOXIDE,CO2 24.1 mmol/L (21.0-32.0); CHLORIDE,CL 109 mmol/L (98-107); GLUCOSE RANDOM 110 mg/dL (74-106); POTASSIUM,K 3.4 mmol/L (3.5-5.1); SODIUM,NA 144 mmol/L (136-145)
[2020-09-12] MEDS: Levothyroxine 25 MCG Tab PO SCH (06:37)
[2020-09-12 07:37] VITALS: PULSE 83
[2020-09-12] MEDS ORDERED: Potassium Chloride 20 MEQ Tab.ER PO ONE (07:42)
[2020-09-12] MEDS ORDERED: Calcium Carbonate 500 MG Tab.Chew PO PRN (07:58)
[2020-09-12] MEDS ORDERED: Magnesium Sulfate/Water 2 GM/50 ML BAG IV ONE (08:01)
[2020-09-12] MEDS: predniSONE 10 MG Tab PO SCH (08:43)
[2020-09-12] MEDS: Pantoprazole 40 MG Tab.CR PO SCH (08:43)
[2020-09-12 08:44] VITALS: BP 134/72
[2020-09-12] MEDS: NIFEdipine 30 MG Tab.ER PO SCH (08:44)
--- NOTE | 2020-09-12 10:33 | PCM.DCSUM1 ---
Discharge Summary - Hospital Course Free Text/Narrative:: Discharge summary Admission date Discharge date Hospital course: Patient is a 80-year-old female with a significant past medical history of sarcoidosis, hypothyroidism, HTN: presenting on September 09, 2020 for intractable nausea, vomiting diarrhea. Symptoms have been ongoing for 5 days. Patient was seen by her primary care doctor where stool sample suggested rotavirus. Of note patient's partner was tested and treated for C. difficile however patient's stool studies did not suggest C. difficile infection. Patient is not currently on any steroids and is not immunosuppressed from her sarcoidosis. Patient was given IV fluids and IV Zofran and was admitted to the general medical floor for IV hydration due to worsening diarrhea. Covid was negative Electrolytes were otherwise unremarkable prior to admission. Patient was made n.p.o. and given a one-time dose of Imodium due to overnight worsening diarrhea. Patient did have 12-13 bowel movements on first day Patient otherwise did have a mild hypokalemia ; treated with a 40 mEq of potassium Day of discharge: Patient advanced diet and tolerated well with no increase in bowel movements. Endorsed feeling better; endorsed wanting to go home. Patient is advised to drink plenty of fluids and advance diet as tolerated. Patient was advised to follow-up with primary care as scheduled Discharge condition: Stable Disposition: Home Discharge medications: Home medications Follow-up: PCP - Discharge Data Discharge Date: 09/12/20 Discharge Disposition: Home, Self-Care 01 Condition: Stable - Referral to Home Health Primary Care Physician: PCP None - Patient Instructions Diet: GI Soft/Low Residue/Low Fiber Notify Provider of: Fever, Nausea and/or Vomiting Other/Special Instructions: Please drink plenty of fluids. Go slow on reintroducing your usual diet; if you feel like your nauseaous or diarrhea is returning ; go back to a clear diet and advance astolerated. Follow up with your PCP as scheduled - Discharge Plan *PRESCRIPTION DRUG MONITORING PROGRAM REVIEWED*: Not Applicable *COPY OF PRESCRIPTION DRUG MONITORING REPORT IN PATIENT DAVID: Not Applicable Home Medications: Home Meds Levothyroxine Sodium [Synthroid] 50 mcg PO SUTUTHSA 08/31/13 [History] Acyclovir 400 mg PO TID PRN 02/08/18 [History] Esomeprazole Magnesium [Nexium] 40 mg PO DAILY 10/14/18 [History] Levothyroxine Sodium [Euthyrox] 25 mcg PO MOWEFR 10/14/18 [History] Multivitamin/Iron/Folic Acid [Centrum Adults Tablet] 1 tab PO DAILY 10/14/18 [History] Acetaminophen [Acetaminophen Extra Strength] 500 - 1,000 mg PO Q6H PRN #30 tablet 02/20/20 [Rx] NIFEdipine [Nifedipine ER] 30 mg PO DAILY 02/23/20 [History] Triazolam 0.125 mg PO BEDTIME 02/23/20 [History] Lidocaine 5% [Lidoderm 5%] 1 patch TOP DAILY #7 patch 08/13/20 [Rx] Oxygen Therapy Mode: Room Air Patient Handouts: Rotavirus Infection, Adult Referrals: Christian Cruz MD [Ordering Only Provider] - 09/18/20 9:00 am - Discharge Summary/Plan Comment DC Time >30 min.: No - Patient Data Vitals - Most Recent: Last Vital Signs Temp 96.8 F L 09/12/20 07:36 Pulse 83 09/12/20 07:36 Resp 22 H 09/12/20 07:36 BP 134/72 09/12/20 08:44 Pulse Ox 95 09/12/20 07:36 Weight - Most Recent: 49.579 kg I&O - Last 24 hours: Intake & Output 09/11/20 09/12/20 09/12/20 22:59 06:59 14:59 Intake Total 1546 2200 50 Output Total 600 900 Balance 946 1300 50 Lab Results - Last 24 hrs: Laboratory Results - last 24 hr 09/12/20 09/12/20 09/12/20 Range/Units 05:50 05:50 05:50 WBC 7.95 (4.0-11.0) K/uL RBC 3.96 L (4.30-5.90) M/uL Hgb 12.4 (12.0-16.0) g/dL Hct 36.5 (36.0-46.0) % MCV 92.2 (80.0-98.0) fL MCH 31.3 (27.0-32.0) pg MCHC 34.0 (31.0-37.0) g/dL RDW Std Deviation 45.9 (28.0-62.0) fl RDW Coeff of Miranda 14 (11.0-15.0) % Plt Count 243 (150-400) K/uL MPV 8.80 (7.40-12.00) fL Neut % (Auto) 75.4 (48.0-80.0) % Lymph % (Auto) 15.2 L (16.0-40.0) % [place] % (Auto) 8.8 (0.0-15.0) % Eos % (Auto) 0.1 (0.0-7.0) % Baso % (Auto) 0.5 (0.0-1.5) % Neut # (Auto) 6.0 H (1.4-5.7) K/uL Lymph # (Auto) 1.2 (0.6-2.4) K/uL [place] # (Auto) 0.7 (0.0-0.8) K/uL Eos # (Auto) 0.0 (0.0-0.7) K/uL Baso # (Auto) 0.0 (0.0-0.1) K/uL Nucleated RBC % 0.0 /100WBC Nucleated RBCs # 0 K/uL Sodium 144 (136-145) mmol/L Potassium 3.4 L (3.5-5.1) mmol/L Chloride 109 H (98-107) mmol/L Carbon Dioxide 24.1 (21.0-32.0) mmol/L BUN 6 L (7.0-18.0) mg/dL Creatinine 0.6 (0.6-1.0) mg/dL Est Cr Clr Drug Dosing 51.92 mL/min Estimated GFR (MDRD) > 60.0 ml/min Glucose 110 H (74-106) mg/dL Calcium 6.8 L (8.5-10.1) mg/dL Magnesium 1.8 (1.8-2.4) mg/dL Med Orders - Current: Current Medications Acyclovir (Acyclovir 200 Mg Cap) 400 mg PO TID PRN PRN Reason: Other Last Admin: 09/10/20 21:17 Dose: 400 mg Documented by: Calcium Carbonate/Glycine (Calcium Carbonate 500 Mg Tab.Chew) 500 mg PO Q2HR PRN PRN Reason: Indigestion Last Admin: 09/12/20 08:43 Dose: 500 mg Documented by: Enoxaparin Sodium (Enoxaparin 40 Mg/0.4 Ml Syringe) 40 mg SUBCUT Q24H [facility] Last Admin: 09/11/20 14:54 Dose: 40 mg Documented by: Sodium Chloride (Normal Saline) 1,000 mls @ 125 mls/hr IV ASDIRECTED [facility] Last Admin: 09/12/20 05:16 Dose: 125 mls/hr Documented by: Levothyroxine Sodium (Levothyroxine 25 Mcg Tab) 50 mcg PO SUTUTHSA [facility] Last Admin: 09/12/20 06:37 Dose: 50 mcg Documented by: Levothyroxine Sodium (Levothyroxine 50 Mcg Tab) 25 mcg PO MOWEFR [facility] Last Admin: 09/11/20 05:42 Dose: 25 mcg Documented by: Nifedipine (Nifedipine 30 Mg Tab.Er) 30 mg PO DAILY [facility] Last Admin: 09/12/20 08:44 Dose: 30 mg Documented by: Pantoprazole Sodium (Pantoprazole 40 Mg Tab.Cr) 40 mg PO DAILY [facility] Last Admin: 09/12/20 08:43 Dose: 40 mg Documented by: Triazolam 0.125 Mg (Tablet) 1 each PO BEDTIME [facility] Last Admin: 09/11/20 21:03 Dose: Not Given Documented by: Prednisone (Prednisone 10 Mg Tab) 10 mg PO BID [facility] Last Admin: 09/12/20 08:43 Dose: 10 mg Documented by: Promethazine HCl (Promethazine 25 Mg/Ml Sdv) 25 mg IM Q8H PRN PRN Reason: Nausea/Vomiting Last Admin: 09/10/20 11:30 Dose: 25 mg Documented by: Sodium Chloride (Sodium Chloride 0.9% 10 Ml Syringe) 10 ml FLUSH ASDIRECTED PRN PRN Reason: Keep Vein Open Last Admin: 09/09/20 16:36 Dose: 10 ml Documented by: Sodium Chloride (Sodium Chloride 0.9% 2.5 Ml Syringe) 2.5 ml FLUSH ASDIRECTED PRN PRN Reason: Keep Vein Open Last Admin: 09/09/20 16:36 Dose: 2.5 ml Documented by: Discontinued Medications Lactated Ringer's (Ringers, Lactated) 1,000 mls @ 999 mls/hr IV .BOLUS ONE Stop: 09/09/20 17:07 Last Admin: 09/09/20 16:34 Dose: 999 mls/hr Documented by: Sodium Chloride (Normal Saline) 1,000 mls @ 999 mls/hr IV .Bolus ONE Stop: 09/10/20 00:57 Last Admin: 09/10/20 00:28 Dose: 999 mls/hr Documented by: Magnesium Sulfate (Magnesium Sulfate In Water 2 Gm/50 Ml) 2 gm in 50 mls @ 50 mls/hr IV ONETIME ONE Stop: 09/12/20 09:00 Last Admin: 09/12/20 08:43 Dose: 50 mls/hr Documented by: Levothyroxine Sodium (Levothyroxine 25 Mcg Tab) 50 mcg PO [facility] Last Admin: 09/10/20 01:03 Dose: Not Given Documented by: Levothyroxine Sodium (Levothyroxine 50 Mcg Tab) 25 mcg PO [facility] Loperamide HCl (Loperamide 2 Mg Cap) 4 mg PO ONETIME ONE Stop: 09/11/20 02:54 Last Admin: 09/11/20 03:13 Dose: 4 mg Documented by: Potassium Chloride (Potassium Chloride 20 Meq Tab.Er) 40 meq PO ONETIME ONE Stop: 09/11/20 07:41 Last Admin: 09/11/20 08:22 Dose: 40 meq Documented by: Potassium Chloride (Potassium Chloride 20 Meq Tab.Er) 40 meq PO ONETIME ONE Stop: 09/12/20 07:43 Last Admin: 09/12/20 08:43 Dose: 40 meq Documented by:
== END 2020-09-12 12:30 | disposition home or self-care (01) ==
LOC: MW.ED 15:36 → MW.MS 18:38
PROVIDERS: ADMIT Internal Medicine; ATTEND Internal Medicine
DX: A08.0 Rotaviral enteritis (principal); E03.9 Hypothyroidism, unspecified; D86.9 Sarcoidosis, unspecified; E86.0 Dehydration; I10 Essential (primary) hypertension; E87.6 Hypokalemia; Z20.822 Contact with and (suspected) exposure to COVID-19; Z88.8 Allergy status to other drugs, medicaments and biological substances; Z91.048 Other nonmedicinal substance allergy status; Z88.5 Allergy status to narcotic agent; Z88.1 Allergy status to other antibiotic agents; Z91.040 Latex allergy status; Z91.013 Allergy to seafood; Z79.899 Other long term (current) drug therapy; Z79.890 Hormone replacement therapy; Z98.890 Other specified postprocedural states
CPT/HCPCS: 36415; 80048; 80053; 83735; 85025; 99285; A9270; J1650; J2550; J3475; J7030; J7120; U0002; 96372; 99283; G0378

== ENCOUNTER 2021-06-14 22:43 | Emergency (ER) | payer MEDICARE, BC ==
[2021-06-15 01:57] VITALS: BP 122/95; PULSE 82
== END 2021-06-15 01:56 | disposition home or self-care (01) ==
LOC: MW.ED 22:43
DX: R51.9 Headache, unspecified (principal); K21.9 Gastro-esophageal reflux disease without esophagitis; E03.9 Hypothyroidism, unspecified; Z88.8 Allergy status to other drugs, medicaments and biological substances; Z91.048 Other nonmedicinal substance allergy status; Z88.1 Allergy status to other antibiotic agents; Z88.5 Allergy status to narcotic agent; Z91.040 Latex allergy status; Z88.6 Allergy status to analgesic agent; Z91.013 Allergy to seafood; Z79.899 Other long term (current) drug therapy
CPT/HCPCS: 70450; 70450-26; 73030-26-RT; 73030-RT; 99284-25

== ENCOUNTER 2021-06-22 19:14 | Emergency (ER) | payer MEDICARE, BC ==
[2021-06-22] MEDS ORDERED: Sodium Chloride 0.9% 2.5 ML Syringe FLUSH PRN (19:22)
[2021-06-22] MEDS ORDERED: Sodium Chloride 0.9% 10 ML Syringe FLUSH PRN (19:22)
[2021-06-22 19:57] LABS: BLOOD UREA NITROGEN,BUN 18 mg/dL (7.0-18.0); CARBON DIOXIDE,CO2 28.2 mmol/L (21.0-32.0); CHLORIDE,CL 103 mmol/L (98-107); GLUCOSE RANDOM 126 mg/dL (74-106); POTASSIUM,K 3.5 mmol/L (3.5-5.1); SODIUM,NA 140 mmol/L (136-145)
[2021-06-22 23:28] VITALS: BP 112/84; PULSE 85
== END 2021-06-22 23:41 | disposition home or self-care (01) ==
LOC: MW.ED 19:14
DX: S13.4XXA Sprain of ligaments of cervical spine, initial encounter (principal); K21.9 Gastro-esophageal reflux disease without esophagitis; E03.9 Hypothyroidism, unspecified; Z91.048 Other nonmedicinal substance allergy status; Z88.8 Allergy status to other drugs, medicaments and biological substances; Z88.5 Allergy status to narcotic agent; Z91.013 Allergy to seafood; Z79.899 Other long term (current) drug therapy; Z87.891 Personal history of nicotine dependence
CPT/HCPCS: 36415; 70450; 80053; 83735; 84439; 84443; 84484; 85025; 93005; 96374; 96376; 99284; J3360

== ENCOUNTER 2022-04-05 18:35 | Emergency (ER) | payer OTHER, MEDICARE, BC ==
[2022-04-05 18:44] VITALS: BP 160/83; PULSE 78
[2022-04-05] MEDS ORDERED: Lidocaine 5% 700 MG Patch TOP ONE (19:19)
== END 2022-04-05 21:39 | disposition home or self-care (01) ==
LOC: MW.ED 18:35
DX: M54.2 Cervicalgia (principal); M25.511 Pain in right shoulder; K21.9 Gastro-esophageal reflux disease without esophagitis; Z88.8 Allergy status to other drugs, medicaments and biological substances; Z88.5 Allergy status to narcotic agent; Z88.2 Allergy status to sulfonamides; Z88.9 Allergy status to unspecified drugs, medicaments and biological substances; Z79.899 Other long term (current) drug therapy
CPT/HCPCS: 70450; 72125; 73030; 99284; A9270

== ENCOUNTER 2022-06-30 21:51 | Emergency (ER) | payer MEDICARE, BC ==
[2022-06-30 22:13] VITALS: BP 176/97
[2022-07-01 00:35] VITALS: PULSE 78
== END 2022-07-01 00:33 | disposition home or self-care (01) ==
LOC: MW.ED 21:51
DX: R51.9 Headache, unspecified (principal); K21.9 Gastro-esophageal reflux disease without esophagitis; E03.9 Hypothyroidism, unspecified; Z88.1 Allergy status to other antibiotic agents; Z88.8 Allergy status to other drugs, medicaments and biological substances; Z91.048 Other nonmedicinal substance allergy status; Z88.5 Allergy status to narcotic agent; Z91.040 Latex allergy status; Z88.6 Allergy status to analgesic agent; Z91.013 Allergy to seafood; Z79.899 Other long term (current) drug therapy
CPT/HCPCS: 70450; 70450-26; 99283; 99284

== ENCOUNTER 2022-08-20 17:51 | Emergency (ER) | payer MEDICARE, BC ==
[2022-08-20 20:57] VITALS: BP 131/82; PULSE 83
== END 2022-08-20 20:56 | disposition home or self-care (01) ==
LOC: MW.ED 17:51
DX: S20.211A Contusion of right front wall of thorax, initial encounter (principal); E03.9 Hypothyroidism, unspecified; Z91.040 Latex allergy status; Z91.013 Allergy to seafood; Z88.6 Allergy status to analgesic agent; Z88.5 Allergy status to narcotic agent; Z88.8 Allergy status to other drugs, medicaments and biological substances; Z88.1 Allergy status to other antibiotic agents; Z79.899 Other long term (current) drug therapy; W18.30XA Fall on same level, unspecified, initial encounter
CPT/HCPCS: 71250; 71250-26; 72125; 72125-26; 72128-26; 72131; 72131-26; 72192; 72192-26; 99283; 99285

== ENCOUNTER 2022-11-20 20:45 | Emergency (ER) | payer MEDICARE, BC ==
[2022-11-20] MEDS ORDERED: Promethazine 25 MG Tab PO STA (21:12)
[2022-11-20] MEDS ORDERED: Lidocaine 4% 1 each Patch TOP STA ×2 (21:14→21:56)
[2022-11-20 22:09] VITALS: BP 132/93; PULSE 87
== END 2022-11-20 22:35 | disposition home or self-care (01) ==
LOC: MW.ED 20:45
DX: M54.41 Lumbago with sciatica, right side (principal); K21.9 Gastro-esophageal reflux disease without esophagitis; Z91.09 Other allergy status, other than to drugs and biological substances; Z88.6 Allergy status to analgesic agent; Z88.5 Allergy status to narcotic agent; Z88.1 Allergy status to other antibiotic agents; Z88.8 Allergy status to other drugs, medicaments and biological substances; Z91.040 Latex allergy status; Z91.013 Allergy to seafood; Z79.899 Other long term (current) drug therapy
CPT/HCPCS: 72131; 99283; A9270

== ENCOUNTER 2023-01-02 02:02 | Emergency (ER) | payer MEDICARE, BC ==
[2023-01-02] MEDS ORDERED: Sodium Chloride 0.9% 10 ML Syringe FLUSH PRN (02:38)
[2023-01-02] MEDS ORDERED: Albuterol/Ipratropium 3.0-0.5 MG/3 ML Neb Soln NEB ONE (02:38)
[2023-01-02] MEDS ORDERED: Sodium Chloride 0.9% 2.5 ML Syringe FLUSH PRN (02:38)
[2023-01-02] MEDS ORDERED: methylPREDNISolone Sodium Succinate 125 MG/2 ML SDV IVPUSH ONE (02:38)
[2023-01-02] MEDS ORDERED: Famotidine 20 MG/2 ML SDV IVPUSH ONE (02:38)
[2023-01-02 03:18] LABS: BASOPHILS PERCENT AUTO 0.6 % (0.0-1.5); EOSINOPHILS ABSOLUTE AUTO 0.2 K/uL (0.0-0.7); HEMATOCRIT 38.9 % (36.0-46.0); HEMOGLOBIN 12.9 g/dL (12.0-16.0); LYMPHOCYTES ABSOLUTE AUTO 1.5 K/uL (0.6-2.4); LYMPHOCYTES PERCENT AUTO 29.5 % (16.0-40.0); MEAN CORPUSCULAR HEMOGLOBIN 30.4 pg (27.0-32.0); MEAN CORPUSCULAR HGB CONC 33.2 g/dL (31.0-37.0); MEAN CORPUSCULAR VOLUME 91.7 fL (80.0-98.0); MONOCYTES ABSOLUTE AUTO 0.6 K/uL (0.0-0.8); NEUTROPHILS ABSOLUTE AUTO 2.8 K/uL (1.4-5.7); NEUTROPHILS PERCENT AUTO 55.9 % (48.0-80.0); NRBC ABSOLUTE 0 K/uL; PLATELET COUNT,PLT 323 K/uL (150-400); RED BLOOD CELL COUNT 4.24 M/uL (4.30-5.90); WHITE BLOOD CELL COUNT,WBC 4.99 K/uL (4.0-11.0)
[2023-01-02] MEDS ORDERED: LORazepam 2 MG/ML SDV IVPUSH ONE (03:18)
[2023-01-02 03:46] LABS: A/G RATIO 1.2 (0.9-1.6); ALBUMIN 3.7 g/dL (3.4-5.0); BILIRUBIN TOTAL 0.3 mg/dL (0.2-1.0); CALCIUM 9.7 mg/dL (8.5-10.1); CARBON DIOXIDE,CO2 26.9 mmol/L (21.0-32.0); CREATININE 0.7 mg/dL (0.6-1.0); EST CRCL DRUG DOSING (CG) 46.69 mL/min; MAGNESIUM 1.9 mg/dL (1.8-2.4); POTASSIUM,K 3.7 mmol/L (3.5-5.1); PROTEIN TOTAL,TP 6.9 g/dL (6.4-8.2)
[2023-01-02 05:19] VITALS: BP 133/94; PULSE 82
== END 2023-01-02 05:19 | disposition home or self-care (01) ==
LOC: MW.ED 02:02
DX: R06.02 Shortness of breath (principal); T40.2X5A Adverse effect of other opioids, initial encounter; R07.9 Chest pain, unspecified; Z88.1 Allergy status to other antibiotic agents; Z88.5 Allergy status to narcotic agent; Z88.8 Allergy status to other drugs, medicaments and biological substances; Z88.6 Allergy status to analgesic agent; Z91.013 Allergy to seafood
CPT/HCPCS: 36415; 71045; 80053; 82947; 83735; 84484; 85025; 85379; 93005; 96374; 96375; 99285; J2060; J2930; J3490; 93010; 99284; J7620-GY

== ENCOUNTER 2023-08-18 20:48 | Emergency (ER) | payer MEDICARE, BC ==
[2023-08-18 22:26] VITALS: BP 148/82; PULSE 79
== END 2023-08-18 22:46 | disposition home or self-care (01) ==
LOC: MW.ED 20:48
DX: L50.9 Urticaria, unspecified (principal); E03.9 Hypothyroidism, unspecified; K21.9 Gastro-esophageal reflux disease without esophagitis; Z75.8 Other problems related to medical facilities and other health care; Z79.899 Other long term (current) drug therapy; Z88.8 Allergy status to other drugs, medicaments and biological substances; Z88.5 Allergy status to narcotic agent; Z88.6 Allergy status to analgesic agent; Z91.048 Other nonmedicinal substance allergy status; Z91.013 Allergy to seafood; Z91.040 Latex allergy status; Z88.1 Allergy status to other antibiotic agents
CPT/HCPCS: 99282; 99283

== ENCOUNTER 2023-09-14 21:12 | Emergency (ER) | payer MEDICARE, BC ==
[2023-09-14 21:54] LABS: BASOPHILS ABSOLUTE AUTO 0.06 K/uL (0.00-0.20); BASOPHILS PERCENT AUTO 0.8 % (0.0-1.0); EOSINOPHILS ABSOLUTE AUTO 0.15 K/uL (0.00-0.45); HEMATOCRIT 36.8 % (37.0-47.0); HEMOGLOBIN 12.5 g/dL (12.0-16.0); IMMATURE GRAN ABSOLUTE AUTO 0.02 K/uL (0.00-0.05); IMMATURE GRAN PERCENT AUTO 0.3 % (0.0-0.4); LYMPHOCYTES ABSOLUTE AUTO 1.31 K/uL (1.00-4.80); LYMPHOCYTES PERCENT AUTO 17.6 % (24.0-44.0); MEAN CORPUSCULAR HEMOGLOBIN 30.2 pg (28.0-32.0); MEAN CORPUSCULAR VOLUME 88.9 fL (83.0-99.0); MEAN PLATELET VOLUME 8.5 fL (9.4-12.3); MONOCYTES ABSOLUTE AUTO 0.64 K/uL (0.00-0.80); MONOCYTES PERCENT AUTO 8.6 % (0.0-8.0); NEUTROPHILS ABSOLUTE AUTO 5.25 K/uL (1.80-7.70); NEUTROPHILS PERCENT AUTO 70.7 % (41.0-71.0); PLATELET COUNT,PLT 287 K/uL (150-400); RED BLOOD CELL COUNT 4.14 M/uL (4.10-5.30); WHITE BLOOD CELL COUNT,WBC 7.43 K/uL (3.9-11.3)
[2023-09-14 22:19] LABS: A/G RATIO 0.9 (0.9-1.6); ALBUMIN 3.2 g/dL (3.4-5.0); BILIRUBIN TOTAL 0.3 mg/dL (0.2-1.0); CALCIUM 8.6 mg/dL (8.5-10.1); CARBON DIOXIDE,CO2 28.2 mmol/L (21.0-32.0); CREATININE 0.8 mg/dL (0.6-1.0); EST CRCL DRUG DOSING (CG) 36.93 mL/min; POTASSIUM,K 3.4 mmol/L (3.5-5.1); PROTEIN TOTAL,TP 6.8 g/dL (6.4-8.2)
[2023-09-14 22:32] LABS: APPEARANCE,URINE CLEAR; BILIRUBIN,URINE NEGATIVE (NEGATIVE); COLOR,URINE YELLOW; GLUCOSE,URINE NEGATIVE (NEGATIVE); KETONES,URINE NEGATIVE (NEGATIVE); LEUKOCYTE ESTERASE,URINE SMALL (NEGATIVE); NITRITE,URINE NEGATIVE (NEGATIVE); OCCULT BLOOD,URINE NEGATIVE (NEGATIVE); PROTEIN,URINE NEGATIVE (NEGATIVE); UROBILINOGEN,URINE 0.2 EU/dL (<2.0)
[2023-09-14 22:45] LABS: BACTERIA,URINE FEW (NEGATIVE); EPITHELIAL CELLS,URINE RARE (NONE-FEW); WBC,URINE 25-30 (0-5/HPF)
[2023-09-14] MEDS: Polyethylene Glycol 3350 Powder 17 GM Packet PO ONE (23:29)
[2023-09-14] MEDS: Nitrofurantoin Monohydrate/Macrocrystalline 100 MG Cap PO ONE (23:29)
[2023-09-14 23:34] VITALS: BP 123/72; PULSE 85
== END 2023-09-14 23:34 | disposition home or self-care (01) ==
LOC: MW.ED 21:12
DX: K59.00 Constipation, unspecified (principal); N39.0 Urinary tract infection, site not specified; K21.9 Gastro-esophageal reflux disease without esophagitis; E03.9 Hypothyroidism, unspecified; Z91.048 Other nonmedicinal substance allergy status; Z88.6 Allergy status to analgesic agent; Z88.5 Allergy status to narcotic agent; Z88.1 Allergy status to other antibiotic agents; Z91.040 Latex allergy status; Z91.013 Allergy to seafood; Z88.8 Allergy status to other drugs, medicaments and biological substances; Z79.899 Other long term (current) drug therapy; Z75.8 Other problems related to medical facilities and other health care; Z90.49 Acquired absence of other specified parts of digestive tract; Z90.710 Acquired absence of both cervix and uterus
CPT/HCPCS: 36415; 74018; 80053; 81001; 81003; 83690; 85025; 87086; 99284; A9270; 99283

== ENCOUNTER 2023-11-08 17:15 | Emergency (ER) | payer MEDICARE, BC ==
[2023-11-08 17:52] LABS: APPEARANCE,URINE CLOUDY; BILIRUBIN,URINE NEGATIVE (NEGATIVE); COLOR,URINE YELLOW; GLUCOSE,URINE NEGATIVE (NEGATIVE); KETONES,URINE NEGATIVE (NEGATIVE); LEUKOCYTE ESTERASE,URINE NEGATIVE (NEGATIVE); NITRITE,URINE NEGATIVE (NEGATIVE); OCCULT BLOOD,URINE NEGATIVE (NEGATIVE); PROTEIN,URINE NEGATIVE (NEGATIVE); UROBILINOGEN,URINE 0.2 EU/dL (<2.0)
[2023-11-08 18:37] LABS: CANDIDA DNA PROBE NEGATIVE (NEGATIVE); GARDNERELLA DNA PROBE NEGATIVE (NEGATIVE); TRICHOMONAS DNA PROBE NEGATIVE (NEGATIVE)
[2023-11-08] MEDS: Phenazopyridine 200 MG Tab PO ONE (19:06)
[2023-11-08 19:13] VITALS: BP 148/75; PULSE 90
== END 2023-11-08 19:13 | disposition home or self-care (01) ==
LOC: MW.ED 17:15
DX: R30.0 Dysuria (principal); E03.9 Hypothyroidism, unspecified; Z90.49 Acquired absence of other specified parts of digestive tract; Z90.710 Acquired absence of both cervix and uterus; Z79.899 Other long term (current) drug therapy; Z88.8 Allergy status to other drugs, medicaments and biological substances; Z88.2 Allergy status to sulfonamides; Z91.013 Allergy to seafood; Z91.040 Latex allergy status; Z88.1 Allergy status to other antibiotic agents
CPT/HCPCS: 81003; 87480; 87510; 87660; 99283; A9270

== ENCOUNTER 2023-11-22 09:06 | Emergency (ER) | payer MEDICARE, BC ==
[2023-11-22 09:41] LABS: BASOPHILS ABSOLUTE AUTO 0.05 K/uL (0.00-0.20); BASOPHILS PERCENT AUTO 1.1 % (0.0-1.0); EOSINOPHILS ABSOLUTE AUTO 0.15 K/uL (0.00-0.45); EOSINOPHILS PERCENT AUTO 3.2 % (0.0-6.0); HEMATOCRIT 34.9 % (37.0-47.0); HEMOGLOBIN 12.1 g/dL (12.0-16.0); IMMATURE GRAN ABSOLUTE AUTO 0.01 K/uL (0.00-0.05); IMMATURE GRAN PERCENT AUTO 0.2 % (0.0-0.4); LYMPHOCYTES ABSOLUTE AUTO 1.42 K/uL (1.00-4.80); LYMPHOCYTES PERCENT AUTO 30.2 % (24.0-44.0); MEAN CORPUSCULAR HEMOGLOBIN 30.9 pg (28.0-32.0); MEAN CORPUSCULAR HGB CONC 34.7 g/dL (32.0-36.0); MEAN PLATELET VOLUME 8.1 fL (9.4-12.3); MONOCYTES PERCENT AUTO 10.6 % (0.0-8.0); NEUTROPHILS ABSOLUTE AUTO 2.57 K/uL (1.80-7.70); NEUTROPHILS PERCENT AUTO 54.7 % (41.0-71.0); PLATELET COUNT,PLT 269 K/uL (150-400); RED BLOOD CELL COUNT 3.92 M/uL (4.10-5.30)
[2023-11-22] MEDS: Sodium Chloride 0.9% 500 ML IV SCH (09:45)
[2023-11-22] MEDS: methylPREDNISolone Sodium Succinate 125 MG/2 ML SDV IVPUSH ONE (09:46)
[2023-11-22] MEDS: Sodium Chloride 0.9% 10 ML Syringe FLUSH PRN (09:46)
[2023-11-22] MEDS: diphenhydrAMINE 50 MG/ML SDV IVPUSH ONE (09:46)
[2023-11-22] MEDS: Sodium Chloride 0.9% 2.5 ML Syringe FLUSH PRN (09:46)
[2023-11-22] MEDS: Cetirizine 10 MG Tab PO ONE (09:56)
[2023-11-22 10:10] LABS: A/G RATIO 1.2 (0.9-1.6); ALBUMIN 3.6 g/dL (3.4-5.0); BILIRUBIN TOTAL 0.6 mg/dL (0.2-1.0); CALCIUM 8.8 mg/dL (8.5-10.1); CARBON DIOXIDE,CO2 27.2 mmol/L (21.0-32.0); CREATININE 0.8 mg/dL (0.6-1.0); EST CRCL DRUG DOSING (CG) 36.93 mL/min; POTASSIUM,K 3.6 mmol/L (3.5-5.1); PROTEIN TOTAL,TP 6.5 g/dL (6.4-8.2)
[2023-11-22 13:05] VITALS: BP 128/86; PULSE 87
== END 2023-11-22 13:05 | disposition home or self-care (01) ==
LOC: MW.ED 09:06
DX: R07.9 Chest pain, unspecified (principal); T36.8X5A Adverse effect of other systemic antibiotics, initial encounter; K21.9 Gastro-esophageal reflux disease without esophagitis; E03.9 Hypothyroidism, unspecified; Z90.49 Acquired absence of other specified parts of digestive tract; Z90.710 Acquired absence of both cervix and uterus; Z75.8 Other problems related to medical facilities and other health care; Z79.899 Other long term (current) drug therapy; Z88.8 Allergy status to other drugs, medicaments and biological substances; Z91.013 Allergy to seafood; Z91.040 Latex allergy status; Z88.5 Allergy status to narcotic agent
CPT/HCPCS: 36415; 71045; 80053; 83690; 83880; 84484; 85025; 93005; 96361; 96374; 96375; 99285; A9270; J1200; J2919; J3490; J7040

== ENCOUNTER 2023-12-15 14:18 | Emergency (ER) | payer MEDICARE, BC ==
[2023-12-15] MEDS: 50% Dextrose in Water 50 ML Syringe IVPUSH ONE (15:30)
[2023-12-15 15:43] LABS: BASOPHILS ABSOLUTE AUTO 0.04 K/uL (0.00-0.20); BASOPHILS PERCENT AUTO 0.6 % (0.0-1.0); EOSINOPHILS ABSOLUTE AUTO 0.11 K/uL (0.00-0.45); EOSINOPHILS PERCENT AUTO 1.7 % (0.0-6.0); HEMATOCRIT 38.5 % (37.0-47.0); HEMOGLOBIN 13.1 g/dL (12.0-16.0); IMMATURE GRAN ABSOLUTE AUTO 0.01 K/uL (0.00-0.05); IMMATURE GRAN PERCENT AUTO 0.2 % (0.0-0.4); LYMPHOCYTES PERCENT AUTO 15.4 % (24.0-44.0); MEAN CORPUSCULAR HEMOGLOBIN 30.3 pg (28.0-32.0); MEAN CORPUSCULAR VOLUME 89.1 fL (83.0-99.0); MEAN PLATELET VOLUME 8.4 fL (9.4-12.3); MONOCYTES ABSOLUTE AUTO 0.56 K/uL (0.00-0.80); MONOCYTES PERCENT AUTO 8.6 % (0.0-8.0); NEUTROPHILS ABSOLUTE AUTO 4.76 K/uL (1.80-7.70); NEUTROPHILS PERCENT AUTO 73.5 % (41.0-71.0); PLATELET COUNT,PLT 297 K/uL (150-400); RED BLOOD CELL COUNT 4.32 M/uL (4.10-5.30); WHITE BLOOD CELL COUNT,WBC 6.48 K/uL (3.9-11.3)
[2023-12-15 16:23] LABS: A/G RATIO 1.2 (0.9-1.6); ALANINE AMINOTRANSFERASE,ALT 22 IU/L (14-63); ALBUMIN 3.8 g/dL (3.4-5.0); ALKALINE PHOSPHATASE 45 U/L (46-116); ASPARTATE AMNIOTRANSFERASE,AST 22 IU/L (15-37); BILIRUBIN TOTAL 0.5 mg/dL (0.2-1.0); BLOOD UREA NITROGEN,BUN 11 mg/dL (7.0-18.0); CALCIUM 9.3 mg/dL (8.5-10.1); CARBON DIOXIDE,CO2 27.7 mmol/L (21.0-32.0); CHLORIDE,CL 105 mmol/L (98-107); CREATININE 0.7 mg/dL (0.6-1.0); ETHANOL BLOOD MEDICAL <3 mg/dL; GLUCOSE RANDOM 90 mg/dL (74-106); MAGNESIUM 2.1 mg/dL (1.8-2.4); POTASSIUM,K 3.7 mmol/L (3.5-5.1); PROTEIN TOTAL,TP 6.9 g/dL (6.4-8.2); SODIUM,NA 143 mmol/L (136-145)
[2023-12-15 16:25] LABS: ESTIMATED GFR 85 mL/min (>60)
[2023-12-15] MEDS: Sodium Chloride 0.9% 10 ML Syringe FLUSH PRN (17:01)
[2023-12-15] MEDS: Sodium Chloride 0.9% 2.5 ML Syringe FLUSH PRN (17:01)
[2023-12-15] MEDS: atorvaSTATin 20 MG Tab PO ONE (18:16)
[2023-12-15] MEDS: Clopidogrel 75 MG Tab PO ONE (18:16)
[2023-12-15 19:12] VITALS: BP 138/77; PULSE 85
== END 2023-12-15 18:40 | disposition home or self-care (01) ==
LOC: MW.ED 14:18
DX: G45.9 Transient cerebral ischemic attack, unspecified (principal); K21.9 Gastro-esophageal reflux disease without esophagitis; E03.9 Hypothyroidism, unspecified; Z90.49 Acquired absence of other specified parts of digestive tract; Z90.710 Acquired absence of both cervix and uterus; Z79.899 Other long term (current) drug therapy; Z88.8 Allergy status to other drugs, medicaments and biological substances; Z88.5 Allergy status to narcotic agent; Z91.013 Allergy to seafood; Z88.2 Allergy status to sulfonamides; Z91.040 Latex allergy status; Z88.1 Allergy status to other antibiotic agents
CPT/HCPCS: 36415; 70450; 70544; 70547; 70551; 71045; 80053; 80307; 82947; 83735; 84484; 85025; 85610; 93005; 96374; 99284; A9270; J3490; 93010; 99285

== ENCOUNTER 2024-01-14 00:24 | Emergency (ER) | payer MEDICARE, BC ==
[2024-01-14] MEDS ORDERED: Sodium Chloride 0.9% 10 ML Syringe FLUSH PRN (00:33)
[2024-01-14 00:56] LABS: BASOPHILS ABSOLUTE AUTO 0.02 K/uL (0.00-0.20); BASOPHILS PERCENT AUTO 0.2 % (0.0-1.0); EOSINOPHILS ABSOLUTE AUTO 0.02 K/uL (0.00-0.45); EOSINOPHILS PERCENT AUTO 0.2 % (0.0-6.0); HEMATOCRIT 27.9 % (37.0-47.0); IMMATURE GRAN ABSOLUTE AUTO 0.03 K/uL (0.00-0.05); IMMATURE GRAN PERCENT AUTO 0.3 % (0.0-0.4); LYMPHOCYTES ABSOLUTE AUTO 1.26 K/uL (1.00-4.80); LYMPHOCYTES PERCENT AUTO 12.1 % (24.0-44.0); MEAN CORPUSCULAR HGB CONC 32.3 g/dL (32.0-36.0); MONOCYTES ABSOLUTE AUTO 0.95 K/uL (0.00-0.80); MONOCYTES PERCENT AUTO 9.1 % (0.0-8.0); NEUTROPHILS ABSOLUTE AUTO 8.13 K/uL (1.80-7.70); NEUTROPHILS PERCENT AUTO 78.1 % (41.0-71.0); PLATELET COUNT,PLT 373 K/uL (150-400); WHITE BLOOD CELL COUNT,WBC 10.41 K/uL (3.9-11.3)
[2024-01-14 01:08] LABS: INR 0.99 (0.86-1.11)
[2024-01-14 01:26] LABS: A/G RATIO 1.2 (0.9-1.6); ALBUMIN 3.4 g/dL (3.4-5.0); BILIRUBIN TOTAL 0.3 mg/dL (0.2-1.0); CALCIUM 8.5 mg/dL (8.5-10.1); CARBON DIOXIDE,CO2 25.5 mmol/L (21.0-32.0); CREATININE 0.7 mg/dL (0.6-1.0); EST CRCL DRUG DOSING (CG) 42.2 mL/min; MAGNESIUM 2.1 mg/dL (1.8-2.4); POTASSIUM,K 3.2 mmol/L (3.5-5.1); PROTEIN TOTAL,TP 6.3 g/dL (6.4-8.2)
[2024-01-14 01:34] LABS: CORONAVIRUS COVID-19 NAA NEGATIVE (NEGATIVE); INFLUENZA A NAA NEGATIVE (NEGATIVE); INFLUENZA B NAA NEGATIVE (NEGATIVE); RESPIRATORY SYNCYTIAL VIR NAA NEGATIVE (NEGATIVE)
[2024-01-14 02:20] LABS: BILIRUBIN,URINE NEGATIVE (NEGATIVE); COLOR,URINE YELLOW; GLUCOSE,URINE NEGATIVE (NEGATIVE); KETONES,URINE NEGATIVE (NEGATIVE); LEUKOCYTE ESTERASE,URINE TRACE (NEGATIVE); NITRITE,URINE NEGATIVE (NEGATIVE); OCCULT BLOOD,URINE MODERATE (NEGATIVE); PROTEIN,URINE NEGATIVE (NEGATIVE); UROBILINOGEN,URINE 0.2 EU/dL (<2.0)
[2024-01-14 02:26] LABS: APPEARANCE,URINE HAZY; BACTERIA,URINE FEW (NEGATIVE); SQUAMOUS EPITHELIAL CELLS,UR FEW
[2024-01-14 02:27] LABS: MUCUS,URINE LIGHT (NONE-MOD)
[2024-01-14 02:55] VITALS: BP 123/66; PULSE 76
== END 2024-01-14 02:54 | disposition home or self-care (01) ==
LOC: MW.ED 00:24
DX: R06.02 Shortness of breath (principal); R53.1 Weakness; D64.9 Anemia, unspecified; K21.9 Gastro-esophageal reflux disease without esophagitis; E03.9 Hypothyroidism, unspecified; Z90.49 Acquired absence of other specified parts of digestive tract; Z90.710 Acquired absence of both cervix and uterus; Z79.890 Hormone replacement therapy; Z79.899 Other long term (current) drug therapy; Z88.6 Allergy status to analgesic agent; Z88.5 Allergy status to narcotic agent; Z88.1 Allergy status to other antibiotic agents; Z88.8 Allergy status to other drugs, medicaments and biological substances; Z88.2 Allergy status to sulfonamides; Z91.013 Allergy to seafood
CPT/HCPCS: 0241U; 36415; 71045; 80053; 81001; 82947; 83735; 83880; 85025; 85610; 93005; 99285; 93010; 99283

== ENCOUNTER 2024-02-22 08:22 | Emergency (ER) | payer MEDICARE, BC ==
[2024-02-22] MEDS: Acetaminophen 500 MG Tab PO ONE (08:47)
[2024-02-22] MEDS: SUMAtriptan 6 MG/0.5 ML SDV SUBCUT ONE (09:56)
[2024-02-22 10:48] VITALS: BP 109/63; PULSE 81
[2024-02-22] MEDS: predniSONE 20 MG Tab PO ONE (10:54)
== END 2024-02-22 10:59 | disposition home or self-care (01) ==
LOC: MW.ED 08:22
DX: R51.9 Headache, unspecified (principal); I10 Essential (primary) hypertension; Z87.39 Personal history of other diseases of the musculoskeletal system and connective tissue; K21.9 Gastro-esophageal reflux disease without esophagitis; Z86.73 Personal history of transient ischemic attack (TIA), and cerebral infarction without residual deficits; Z90.49 Acquired absence of other specified parts of digestive tract; Z90.710 Acquired absence of both cervix and uterus; Z79.899 Other long term (current) drug therapy; Z88.0 Allergy status to penicillin; Z88.1 Allergy status to other antibiotic agents; Z88.2 Allergy status to sulfonamides; Z88.5 Allergy status to narcotic agent; Z88.6 Allergy status to analgesic agent; Z88.8 Allergy status to other drugs, medicaments and biological substances; Z91.040 Latex allergy status; Z91.013 Allergy to seafood; Z91.048 Other nonmedicinal substance allergy status
CPT/HCPCS: 70450; 99284; A9270; 99283

== ENCOUNTER 2024-03-01 13:34 | Emergency (ER) | payer MEDICARE, BC ==
[2024-03-01] MEDS: Alum Hydrox/Mag Hydrox/Simeth 15 ML, Metoclopramide 5 MG, Lidocaine 2% 5 ML PO ONE (14:25)
[2024-03-01 14:28] LABS: BASOPHILS ABSOLUTE AUTO 0.03 K/uL (0.00-0.20); BASOPHILS PERCENT AUTO 0.3 % (0.0-1.0); HEMATOCRIT 30.3 % (37.0-47.0); HEMOGLOBIN 9.5 g/dL (12.0-16.0); IMMATURE GRAN ABSOLUTE AUTO 0.04 K/uL (0.00-0.05); IMMATURE GRAN PERCENT AUTO 0.4 % (0.0-0.4); LYMPHOCYTES ABSOLUTE AUTO 0.53 K/uL (1.00-4.80); LYMPHOCYTES PERCENT AUTO 5.8 % (24.0-44.0); MEAN CORPUSCULAR HGB CONC 31.4 g/dL (32.0-36.0); MEAN CORPUSCULAR VOLUME 82.8 fL (83.0-99.0); MEAN PLATELET VOLUME 8.3 fL (9.4-12.3); MONOCYTES ABSOLUTE AUTO 0.11 K/uL (0.00-0.80); MONOCYTES PERCENT AUTO 1.2 % (0.0-8.0); NEUTROPHILS ABSOLUTE AUTO 8.47 K/uL (1.80-7.70); NEUTROPHILS PERCENT AUTO 92.3 % (41.0-71.0); PLATELET COUNT,PLT 518 K/uL (150-400); RED BLOOD CELL COUNT 3.66 M/uL (4.10-5.30); WHITE BLOOD CELL COUNT,WBC 9.18 K/uL (3.9-11.3)
[2024-03-01 14:51] LABS: APPEARANCE,URINE CLEAR; BILIRUBIN,URINE NEGATIVE (NEGATIVE); COLOR,URINE YELLOW; GLUCOSE,URINE NEGATIVE (NEGATIVE); KETONES,URINE NEGATIVE (NEGATIVE); LEUKOCYTE ESTERASE,URINE TRACE (NEGATIVE); NITRITE,URINE NEGATIVE (NEGATIVE); OCCULT BLOOD,URINE NEGATIVE (NEGATIVE); PROTEIN,URINE NEGATIVE (NEGATIVE); UROBILINOGEN,URINE 0.2 EU/dL (<2.0)
[2024-03-01 14:52] LABS: A/G RATIO 1.1 (0.9-1.6); ALBUMIN 3.5 g/dL (3.4-5.0); BILIRUBIN TOTAL 0.3 mg/dL (0.2-1.0); CALCIUM 9.4 mg/dL (8.5-10.1); CARBON DIOXIDE,CO2 27.4 mmol/L (21.0-32.0); CREATININE 0.8 mg/dL (0.6-1.0); EST CRCL DRUG DOSING (CG) 36.93 mL/min; POTASSIUM,K 4.1 mmol/L (3.5-5.1); PROTEIN TOTAL,TP 6.6 g/dL (6.4-8.2)
[2024-03-01 15:05] LABS: BACTERIA,URINE FEW (NEGATIVE); EPITHELIAL CELLS,URINE FEW (NONE-FEW); MUCUS,URINE FEW (NONE-MOD); RBC,URINE 0-1 (0-2/HPF); WBC,URINE 0-2 (0-5/HPF)
[2024-03-01 16:02] VITALS: BP 127/73; PULSE 87
== END 2024-03-01 16:03 | disposition home or self-care (01) ==
LOC: MW.ED 13:34
DX: J06.9 Acute upper respiratory infection, unspecified (principal); R06.02 Shortness of breath; E03.9 Hypothyroidism, unspecified; Z86.73 Personal history of transient ischemic attack (TIA), and cerebral infarction without residual deficits; Z79.899 Other long term (current) drug therapy; Z88.8 Allergy status to other drugs, medicaments and biological substances; Z88.1 Allergy status to other antibiotic agents; Z88.6 Allergy status to analgesic agent; Z91.040 Latex allergy status; Z91.048 Other nonmedicinal substance allergy status; Z91.013 Allergy to seafood; Z88.2 Allergy status to sulfonamides; Z88.5 Allergy status to narcotic agent; Z75.8 Other problems related to medical facilities and other health care
CPT/HCPCS: 36415; 71045; 80053; 81001; 83690; 84484; 85025; 87086; 93005; 99285; A9270

== ENCOUNTER 2024-09-09 20:40 | Emergency (ER) | payer MEDICARE, BC ==
[2024-09-09] MEDS ORDERED: Sodium Chloride 0.9% 10 ML Syringe FLUSH PRN (23:31)
[2024-09-09] MEDS ORDERED: Sodium Chloride 0.9% 2.5 ML Syringe FLUSH PRN (23:31)
[2024-09-09 23:47] LABS: BASOPHILS ABSOLUTE AUTO 0.06 K/uL (0.00-0.20); BASOPHILS PERCENT AUTO 0.7 % (0.0-1.0); EOSINOPHILS ABSOLUTE AUTO 0.19 K/uL (0.00-0.45); EOSINOPHILS PERCENT AUTO 2.3 % (0.0-6.0); HEMATOCRIT 24.6 % (37.0-47.0); HEMOGLOBIN 6.8 g/dL (12.0-16.0); IMMATURE GRAN ABSOLUTE AUTO 0.02 K/uL (0.00-0.05); IMMATURE GRAN PERCENT AUTO 0.2 % (0.0-0.4); LYMPHOCYTES ABSOLUTE AUTO 1.31 K/uL (1.00-4.80); LYMPHOCYTES PERCENT AUTO 16.1 % (24.0-44.0); MEAN CORPUSCULAR HGB CONC 27.6 g/dL (32.0-36.0); MEAN CORPUSCULAR VOLUME 68.7 fL (83.0-99.0); MEAN PLATELET VOLUME 8.5 fL (9.4-12.3); MONOCYTES ABSOLUTE AUTO 0.72 K/uL (0.00-0.80); MONOCYTES PERCENT AUTO 8.9 % (0.0-8.0); NEUTROPHILS ABSOLUTE AUTO 5.82 K/uL (1.80-7.70); NEUTROPHILS PERCENT AUTO 71.8 % (41.0-71.0); PLATELET COUNT,PLT 418 K/uL (150-400); RED BLOOD CELL COUNT 3.58 M/uL (4.10-5.30); WHITE BLOOD CELL COUNT,WBC 8.12 K/uL (3.9-11.3)
[2024-09-09] MEDS: Sodium Chloride 0.9% 500 ML IV SCH (23:47)
[2024-09-10] MEDS: Metoclopramide 10 MG/2 ML SDV IVPUSH ONE
[2024-09-10] MEDS: diphenhydrAMINE 50 MG/ML SDV IVPUSH ONE
[2024-09-10 00:10] LABS: INR 1.05 (0.86-1.11)
[2024-09-10 00:15] LABS: ALBUMIN 3.3 g/dL (3.4-5.0); BILIRUBIN TOTAL 0.2 mg/dL (0.2-1.0); CALCIUM 8.7 mg/dL (8.5-10.1); CARBON DIOXIDE,CO2 28.7 mmol/L (21.0-32.0); CREATININE 0.6 mg/dL (0.6-1.0); EST CRCL DRUG DOSING (CG) 47.71 mL/min; POTASSIUM,K 3.5 mmol/L (3.5-5.1); PROTEIN TOTAL,TP 6.6 g/dL (6.4-8.2)
[2024-09-10 00:30] VITALS: BP 139/68; PULSE 85
== END 2024-09-10 01:24 | disposition left against medical advice (07) ==
LOC: MW.ED 20:40
DX: R51.9 Headache, unspecified (principal); D64.9 Anemia, unspecified; E78.00 Pure hypercholesterolemia, unspecified; E03.9 Hypothyroidism, unspecified; Z86.73 Personal history of transient ischemic attack (TIA), and cerebral infarction without residual deficits; Z90.49 Acquired absence of other specified parts of digestive tract; Z90.710 Acquired absence of both cervix and uterus; Z75.3 Unavailability and inaccessibility of health-care facilities; Z88.1 Allergy status to other antibiotic agents; Z88.5 Allergy status to narcotic agent; Z88.6 Allergy status to analgesic agent; Z88.8 Allergy status to other drugs, medicaments and biological substances; Z91.013 Allergy to seafood; Z91.040 Latex allergy status; Z91.048 Other nonmedicinal substance allergy status; Z79.890 Hormone replacement therapy; Z79.899 Other long term (current) drug therapy
CPT/HCPCS: 36415; 70450; 70450-26; 80053; 83690; 85025; 85610; 93005; 99283; 99284; J7040

== ENCOUNTER 2024-09-20 17:02 | Emergency (ER) | payer MEDICARE, BC ==
[2024-09-20 17:40] LABS: APPEARANCE,URINE CLEAR; BILIRUBIN,URINE NEGATIVE (NEGATIVE); COLOR,URINE YELLOW; GLUCOSE,URINE NEGATIVE (NEGATIVE); KETONES,URINE NEGATIVE (NEGATIVE); LEUKOCYTE ESTERASE,URINE NEGATIVE (NEGATIVE); NITRITE,URINE NEGATIVE (NEGATIVE); OCCULT BLOOD,URINE NEGATIVE (NEGATIVE); PROTEIN,URINE NEGATIVE (NEGATIVE); UROBILINOGEN,URINE 0.2 EU/dL (<2.0)
[2024-09-20] MEDS: Ondansetron 4 MG/2 ML SDV IVPUSH ONE (19:06)
[2024-09-20] MEDS: Morphine 2 MG/ML SYRINGE IVPUSH ONE (19:06)
[2024-09-20] MEDS: Sodium Chloride 0.9% 1,000 ML IV ONE (19:06)
[2024-09-20] MEDS: Magnesium Citrate Solution 296 ML Bottle PO ONE (20:34)
[2024-09-20] MEDS: Polyethylene Glycol 3350 Powder 17 GM Packet PO ONE (20:34)
[2024-09-21 03:58] VITALS: BP 110/70; PULSE 90
== END 2024-09-20 20:45 | disposition home or self-care (01) ==
LOC: MW.ED 17:02
DX: K59.00 Constipation, unspecified (principal); K21.9 Gastro-esophageal reflux disease without esophagitis; E78.00 Pure hypercholesterolemia, unspecified; E03.9 Hypothyroidism, unspecified; Z88.1 Allergy status to other antibiotic agents; Z88.2 Allergy status to sulfonamides; Z88.5 Allergy status to narcotic agent; Z91.040 Latex allergy status; Z91.048 Other nonmedicinal substance allergy status; Z91.013 Allergy to seafood; Z88.8 Allergy status to other drugs, medicaments and biological substances; Z79.890 Hormone replacement therapy; Z79.899 Other long term (current) drug therapy; Z90.49 Acquired absence of other specified parts of digestive tract; Z90.710 Acquired absence of both cervix and uterus
CPT/HCPCS: 74176; 81003; 99284; A9270; 99283

== ENCOUNTER 2024-10-29 13:50 | Emergency (ER) | payer MEDICARE, BC ==
[2024-10-29 14:51] LABS: BASOPHILS ABSOLUTE AUTO 0.06 K/uL (0.00-0.20); BASOPHILS PERCENT AUTO 0.8 % (0.0-1.0); EOSINOPHILS ABSOLUTE AUTO 0.12 K/uL (0.00-0.45); EOSINOPHILS PERCENT AUTO 1.6 % (0.0-6.0); HEMATOCRIT 24.4 % (37.0-47.0); IMMATURE GRAN ABSOLUTE AUTO 0.01 K/uL (0.00-0.05); IMMATURE GRAN PERCENT AUTO 0.1 % (0.0-0.4); LYMPHOCYTES ABSOLUTE AUTO 0.96 K/uL (1.00-4.80); MEAN CORPUSCULAR HEMOGLOBIN 19.4 pg (28.0-32.0); MEAN CORPUSCULAR HGB CONC 28.7 g/dL (32.0-36.0); MEAN CORPUSCULAR VOLUME 67.8 fL (83.0-99.0); MEAN PLATELET VOLUME 8.5 fL (9.4-12.3); MONOCYTES ABSOLUTE AUTO 0.71 K/uL (0.00-0.80); MONOCYTES PERCENT AUTO 9.6 % (0.0-8.0); NEUTROPHILS ABSOLUTE AUTO 5.51 K/uL (1.80-7.70); NEUTROPHILS PERCENT AUTO 74.9 % (41.0-71.0); PLATELET COUNT,PLT 423 K/uL (150-400); WHITE BLOOD CELL COUNT,WBC 7.37 K/uL (3.9-11.3)
[2024-10-29] MEDS: Sodium Chloride 0.9% 1,000 ML IV ONE (14:56)
[2024-10-29 14:58] LABS: INR 1.02 (0.86-1.11); PTT,PARTIAL THROMBOPLSTIN TIME 24.2 SEC (23.9-30.7)
[2024-10-29] MEDS: Alum Hydrox/Mag Hydrox/Simeth 15 ML, Lidocaine 2% 5 ML PO ONE (15:10)
[2024-10-29 15:17] LABS: A/G RATIO 1.1 (0.9-1.6); ALBUMIN 3.6 g/dL (3.4-5.0); BILIRUBIN TOTAL 0.3 mg/dL (0.2-1.0); CALCIUM 9.3 mg/dL (8.5-10.1); CARBON DIOXIDE,CO2 33.8 mmol/L (21.0-32.0); CREATININE 0.7 mg/dL (0.6-1.0); EST CRCL DRUG DOSING (CG) 41.44 mL/min; POTASSIUM,K 2.7 mmol/L (3.5-5.1)
[2024-10-29] MEDS ORDERED: Ticagrelor 90 MG Tab PO ONE (16:00)
[2024-10-29] MEDS: Potassium Chloride 10 MEQ in Premix Bag 1 BAG IV SCH (16:32)
[2024-10-29 16:34] LABS: BILIRUBIN,URINE NEGATIVE (NEGATIVE); COLOR,URINE YELLOW; GLUCOSE,URINE NEGATIVE (NEGATIVE); KETONES,URINE NEGATIVE (NEGATIVE); LEUKOCYTE ESTERASE,URINE NEGATIVE (NEGATIVE); NITRITE,URINE NEGATIVE (NEGATIVE); OCCULT BLOOD,URINE NEGATIVE (NEGATIVE); PH,URINE 6.5 (5.0-8.0); PROTEIN,URINE NEGATIVE (NEGATIVE)
[2024-10-29 16:35] LABS: APPEARANCE,URINE HAZY
[2024-10-29] MEDS: Potassium Chloride 20 MEQ Tab.ER PO ONE (18:31)
[2024-10-29] MEDS: Furosemide 40 MG/4 ML VIAL IVPUSH ONE (18:54)
[2024-10-29 21:50] LABS: CALCIUM 9.4 mg/dL (8.5-10.1); CREATININE 0.8 mg/dL (0.6-1.0); EST CRCL DRUG DOSING (CG) 36.26 mL/min; POTASSIUM,K 3.4 mmol/L (3.5-5.1)
[2024-10-29] MEDS: Pantoprazole 40 MG in Sodium Chloride 0.9% 10 ML IVPUSH ONE (22:06)
[2024-10-29 22:18] VITALS: BP 159/74; PULSE 80
== END 2024-10-29 22:32 | disposition home or self-care (01) ==
LOC: MW.ED 13:50
DX: R10.13 Epigastric pain (principal); D64.9 Anemia, unspecified; R74.8 Abnormal levels of other serum enzymes; E87.6 Hypokalemia; R79.89 Other specified abnormal findings of blood chemistry; Z88.8 Allergy status to other drugs, medicaments and biological substances; Z79.890 Hormone replacement therapy; Z88.5 Allergy status to narcotic agent; Z88.6 Allergy status to analgesic agent; Z91.048 Other nonmedicinal substance allergy status; Z91.040 Latex allergy status; Z88.1 Allergy status to other antibiotic agents; Z91.013 Allergy to seafood; Z88.2 Allergy status to sulfonamides; Z91.041 Radiographic dye allergy status
CPT/HCPCS: 36415; 71250; 74176; 80048; 80053; 81003; 83690; 83880; 84484; 85025; 85610; 85730; 93005; 96361; 96365; 96366; 96375; 99285; A9270; J1938; J2470; J3480; J7030; 93010; 99284

== ENCOUNTER 2024-12-17 15:53 | Emergency (ER) | payer MEDICARE, BC ==
[2024-12-17 16:22] VITALS: BP 131/79; PULSE 100
== END 2024-12-17 18:33 | disposition home or self-care (01) ==
LOC: MW.ED 15:53
DX: R51.9 Headache, unspecified (principal); B97.4 Respiratory syncytial virus as the cause of diseases classified elsewhere; E78.00 Pure hypercholesterolemia, unspecified; K21.9 Gastro-esophageal reflux disease without esophagitis; E03.9 Hypothyroidism, unspecified; Z88.8 Allergy status to other drugs, medicaments and biological substances; Z91.041 Radiographic dye allergy status; Z88.5 Allergy status to narcotic agent; Z88.1 Allergy status to other antibiotic agents; Z88.6 Allergy status to analgesic agent; Z91.013 Allergy to seafood; Z79.890 Hormone replacement therapy; Z79.899 Other long term (current) drug therapy; Z86.73 Personal history of transient ischemic attack (TIA), and cerebral infarction without residual deficits
CPT/HCPCS: 70450; 70450-26; 87634-QW; 99282; 99284